=== PATIENT | male | born 1940 | race Caucasian/White ===

== ENCOUNTER 2018-10-13 13:24 | Inpatient (IN) | payer MEDICARE, OTHER ==
[2018-10-13] MEDS ORDERED: Metoclopramide 10 MG/2 ML SDV IVPUSH ONE ×2 (14:52→19:52)
[2018-10-13] MEDS ORDERED: Acetaminophen 325 MG Tab PO ONE (14:52)
--- NOTE | 2018-10-13 14:52 | EDM.PDOC ---
ED HPI GENERAL MEDICAL PROBLEM - General Chief Complaint: Syncope Stated Complaint: came by ambulance Time Seen by Provider: 10/13/18 14:43 Source of Information: Reports: Patient, EMS, Family (spouse) History Limitations: Reports: No Limitations - History of Present Illness INITIAL COMMENTS - FREE TEXT/NARRATIVE: 78-year-old male presents to the ED by [facility]. His provides a good deal of the history as well. He has not felt well since yesterday. Was lightheaded weak dizzy loss of appetite today. reports that today with sitting he suddenly became very weak and fell back in the chair. Nearly slid out of his chair. She thought that he was quite trembly all over and it's unclear whether this could've represented a seizure. He. seemed to be unresponsive for a short period of time. She felt his eyes rolled back in the back of his head as well. She states all of this lasted a good minute or more and then he came around. No change in his speech. Is alert and oriented now and it gives a good history. Denies headache. It's quite obvious he is febrile with temp to 102.6 recorded by the nurse. Some chills at home earlier this morning as well. He's noted urinary frequency but no dysuria urgency. No history of urinary tract infection. His blood sugar was elevated this morning as high as 300. He is chronically anticoagulated with Coumadin because of aortic valve replacement and atrial fibrillation. His heart rate was noted to be elevated today as well in the 120s with atrial fib. He denies cough or sputum production. Denies any significant abdominal pain. His reports that he was up multiple times almost every hour and a half to void during the night. Onset: Gradual Onset Date: 10/12/18 Duration: Minutes: Location: Reports: Generalized (Generalized shaking and tremors with transient loss of consciousness suggesting seizure. Was sitting at the time of this event. 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 Paramedics got blood sugar 250.) - Related Data Allergies Allergy/AdvReac Type Severity Reaction Status Date / Time clarithromycin [From axin] Allergy Rash Verified 09/29/15 15:35 Home Meds: Home Meds Glimepiride [Amaryl] 4 mg PO DAILY 07/28/15 [History] Ibuprofen 200 mg PO BID 07/28/15 [History] Lisinopril 5 mg PO DAILY 07/28/15 [History] Pravastatin [Pravachol] 20 mg PO BEDTIME 07/28/15 [History] metFORMIN [Glucophage] 1,000 mg PO BID 07/28/15 [History] Diltiazem HCl [Cartia Xt] 180 mg PO DAILY 10/13/18 [History] Warfarin Sodium [Jantoven] 4 mg PO MOWEFR 10/13/18 [History] Warfarin Sodium [Jantoven] 6 mg PO SUTUTHSA 10/13/18 [History] Past Medical History HEENT History: Reports: Cataract, Impaired Vision Other HEENT History: wears eyeglasses Cardiovascular History: Reports: Afib, Heart Murmur, Heart Valve Replacement, Other (See Below) Other Cardiovascular History: aortic valve replaced, heart murmur since . 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 Neurological History: Reports: CVA Endocrine/Metabolic History: Reports: Diabetes, Type II Dermatologic History: Reports: Cellulitis Other Dermatologic History: to legs. - Infectious Disease History Infectious Disease History: Reports: Chicken Pox, Measles, Mumps - Past Surgical History HEENT Surgical History: Reports: Cataract Surgery Musculoskeletal Surgical History: Reports: Hip Replacement Social & Family History - Tobacco Use Smoking Status *Q: Never Smoker Second Hand Smoke Exposure: No - Caffeine Use Caffeine Use: Reports: Coffee - Recreational Drug Use Recreational Drug Use: No - Living Situation & Occupation Living situation: Reports: Occupation: Retired [employer] GENERAL - Review of Systems Review Of Systems: See Below Constitutional: Reports: Fever, Chills, Malaise, Weakness, Fatigue, Decreased Appetite (Has not eaten at all today.) HEENT: Reports: Glasses, Hearing Loss (Mildly hard of hearing.) Respiratory: Reports: Shortness of Breath. Denies: Wheezing, Pleuritic Chest Pain, Cough, Sputum, Hemoptysis Cardiovascular: Reports: Dyspnea on Exertion, Edema (Chronic edema of his lower extremities up to his knees bilaterally right side worse than the left.), Lightheadedness, Palpitations. Denies: Chest Pain, Blood Pressure Problem, Claudication, Orthopnea Endocrine: Reports: Fatigue (Sometimes he is aware of his heart beating or skipping in his chest. He has chronic atrial fibrillation) GI/Abdominal: Reports: Anorexia, Nausea. Denies: Abdominal Pain, Decreased Appetite, Distension, Flatus, Hematemesis, Hematochezia, Melena, Stool Incontinence, Vomiting : Reports: Frequency. Denies: Dysuria Musculoskeletal: Reports: Other (Right hip pain. Had his right hip repaired in 2015 and it did not work well. His right leg remains very weak making it difficult for him to walk. He still has pain in his right hip.) Skin: Reports: Other (Marked swelling of both lower extremities up to the knees. He gets little ulcers on his legs that'll occasional loose clear fluid.) Neurological: Reports: Confusion, Dizziness, Difficulty Walking (Generalized weakness), Weakness. Denies: Numbness, Tingling, Tremors ( and difficulty walking), Trouble Speaking Psychiatric: Reports: No Symptoms Hematologic/Lymphatic: Reports: No Symptoms Immunologic: Reports: No Symptoms - Physical Exam Exam: See Below Exam Limited By: No Limitations General Appearance: Alert, WD/WN, Mild Distress, Other (F-wave febrile to touch. Heart rate is atrial fibrillation at 115 to 119/m.) Eye Exam: Bilateral Eye: Normal Inspection Ears: Normal TMs Throat/Mouth: Other Head Exam: Atraumatic (Tongue is mildly dry and coated.), Normocephalic Neck: Normal Inspection, Carotid Bruit (Referred bruit into the right carotid artery from aortic valve replacement.), Limited Range of Motion, Tender Lateral. No: Full Range of Motion (I'll tenderness bilateral neck from arthritis.), Lymphadenopathy (L), Lymphadenopathy (R) Respiratory/Chest: No Accessory Muscle Use, Respiratory Distress (Tachypnea At rest 32/m. O2 sats 91% on room air percent on 2 L), Rales (Few rales left lung base.) Cardiovascular: No Gallop, No JVD, No Rub, Systolic Murmur (Grade 1/6 systolic ejection murmur at the aortic resting pulse. He is post aortic valve replacement.), Irregularly Irregular (Monitor reveals a irregular irregular pulse 1:15 to 1 20/m compatible with atrial fibrillation.). No: Normal Peripheral Pulses, No Edema, JVD GI/Abdominal: Non-Tender, No Organomegaly, Distended. No: Guarding (Abdomen is distended and slightly tympanitic to percussion.), Rigid, Rebound, Tender (Male) Exam: No Hernia Neuro Exam (Abbreviated): Alert, Oriented, CN II-XII Intact, Normal Cognition. No: Normal Gait, Normal Reflexes, No Motor/Sensory Deficits, Inattentive, Confused, Disoriented, Slow to Respond, Unresponsive DTR: 0: Achilles (R), Achilles (L), 1+: Bicep (R), Bicep (L), Patella (R), Patella (L) Extremities: Pedal Edema (He has 4+ pitting edema bilaterally slightly worse on the right side which travels above his right knee.), Other Psychiatric: Normal Affect (He has several bandages on both lower extremities at sites of small ulcers to prevent peaking.), Normal Mood Skin Exam: Warm, Dry, Intact, Normal Color, No Rash EKG INTERPRETATION EKG Date: 10/13/18 Time: 16:10 Rhythm: A-Fib (Occasional PVCs) Rate (Beats/Min): 115 [place]: Normal P-Wave: Absent ST-T: Other (T-wave inversion in one aVL and leads V4 to V6 with mild associated ST segment depression. Cannot rule out lateral apical ischemia.) QT: Normal Course - Vital Signs Last Recorded V/S: Last Vital Signs Temp 38.7 C H 10/13/18 15:11 Pulse 110 H 10/13/18 13:24 Resp 32 H 10/13/18 13:24 BP 137/82 10/13/18 13:24 Pulse Ox 91 L 10/13/18 13:24 - Orders/Labs/Meds Orders: Active Orders 24 hr Category Date Time Status Patient Status [ADT] Routine ADT 10/13/18 19:45 Active EKG Documentation Completion [RC] STAT Care 10/13/18 14:53 Active Insert Mueller Catheter [Insert Urinary Catheter] [OM.PC] Care 10/13/18 13:50 Ordered Stat Oxygen Therapy [RC] ASDIRECTED Care 10/13/18 16:35 Active Urinary Catheter Assessment [RC] ASDIRECTED Care 10/13/18 13:50 Active Chest 1V Frontal [CR] Stat Exams 10/13/18 14:53 Taken CULTURE BLOOD [BC] Stat Lab 10/13/18 15:29 Received CULTURE BLOOD [BC] Stat Lab 10/13/18 15:41 Received Metoclopramide [Reglan] Med 10/13/18 19:52 Once 7.5 mg IVPUSH ONETIME ONE Sodium Chloride 0.9% [Normal Saline] 1,000 ml Med 10/13/18 15:00 Active IV ASDIRECTED Sodium Chloride 0.9% [Normal Saline] 1,000 ml Med 10/13/18 19:00 Active IV ASDIRECTED cefTRIAXone [Rocephin] 2 gm Med 10/13/18 16:30 Active Sodium Chloride 0.9% [Normal Saline] 100 ml IV Q24H Blood Culture x2 Reflex Set [OM.PC] Stat Oth 10/13/18 14:54 Ordered Medication Orders Sodium Chloride (Normal Saline) 1,000 mls @ 125 mls/hr IV ASDIRECTED FABIENNE Last Admin: 10/13/18 15:10 Dose: 125 mls/hr Ceftriaxone Sodium 2 gm/ (Sodium Chloride) 100 mls @ 200 mls/hr IV Q24H FABIENNE Last Admin: 10/13/18 16:48 Dose: 200 mls/hr Sodium Chloride (Normal Saline) 1,000 mls @ 100 mls/hr IV ASDIRECTED FABIENNE Labs: Laboratory Tests 10/13/18 10/13/18 10/13/18 Range/Units 13:55 15:29 15:29 WBC 8.26 (4.23-9.07) K/mm3 RBC 4.42 L (4.63-6.08) M/mm3 Hgb 13.2 L (13.7-17.5) gm/L Hct 39.6 L (40.1-51.0) % MCV 89.6 (79.0-92.2) fl MCH 29.9 (25.7-32.2) pg MCHC 33.3 (32.2-35.5) g/dl RDW Std Deviation 42.7 (35.1-43.9) fL Plt Count 144 L (163-337) K/mm3 MPV 9.5 (9.4-12.3) fl Neutrophils % (Manual) 86 H (40-60) % Band Neutrophils % 2 (0-10) % Lymphocytes % (Manual) 11 L (20-40) % Atypical Lymphs % 0 % Monocytes % (Manual) 1 L (2-10) % Eosinophils % (Manual) 0 L (0.8-7.0) % Basophils % (Manual) 0 L (0.2-1.2) Platelet Estimate Adequate RBC Morph Comment Normal ESR 44 H (0-15) mm/hr PT (9.5-12.1) SECONDS INR Sodium (136-145) mEq/L Potassium (3.5-5.1) mEq/L Chloride (98-107) mEq/L Carbon Dioxide (21-32) mEq/L Anion Gap (5-15) BUN (7-18) mg/dL Creatinine (0.7-1.3) mg/dL Est Cr Clr Drug Dosing mL/min Estimated GFR (MDRD) (>60) mL/min BUN/Creatinine Ratio (14-18) Glucose (83-115) mg/dL Lactic Acid (0.4-2.0) mmol/L Calcium (8.5-10.1) mg/dL Magnesium (1.8-2.4) mg/dl Total Bilirubin (0.2-1.0) mg/dL AST (15-37) U/L ALT (16-63) U/L Alkaline Phosphatase (46-116) U/L CK-MB (CK-2) (0-3.6) ng/ml Troponin I (0.00-0.056) ng/mL C-Reactive Protein (<1.0) mg/dL NT-Pro-B Natriuret Pep (0-450) pg/mL Total Protein (6.4-8.2) g/dl Albumin (3.4-5.0) g/dl Globulin gm/dL Albumin/Globulin Ratio (1-2) Urine Color Yellow (Yellow) Urine Appearance Clear (Clear) Urine pH 6.0 (5.0-8.0) Ur Specific Bigler > or = 1.030 (1.005-1.030) Urine Protein 2+ H (Negative) Urine Glucose (UA) Trace H (Negative) Urine Ketones 2+ H (Negative) Urine Occult Blood 1+ H (Negative) Urine Nitrite Negative (Negative) Urine Bilirubin Negative (Negative) Urine Urobilinogen 0.2 (0.2-1.0) Ur Leukocyte Esterase Negative (Negative) Urine RBC 0-5 (0-5) /hpf Urine WBC 0-5 (0-5) /hpf Ur Epithelial Cells 0-5 (0-5) /hpf Amorphous Sediment Few H (NOT SEEN) /hpf Urine Bacteria Few (FEW) /hpf Urine Mucus Few (FEW) /hpf Mycoplasma pneumon IgM (NEGATIVE) 10/13/18 10/13/18 10/13/18 Range/Units 15:29 15:29 15:29 WBC (4.23-9.07) K/mm3 RBC (4.63-6.08) M/mm3 Hgb (13.7-17.5) gm/L Hct (40.1-51.0) % MCV (79.0-92.2) fl MCH (25.7-32.2) pg MCHC (32.2-35.5) g/dl RDW Std Deviation (35.1-43.9) fL Plt Count (163-337) K/mm3 MPV (9.4-12.3) fl Neutrophils % (Manual) (40-60) % Band Neutrophils % (0-10) % Lymphocytes % (Manual) (20-40) % Atypical Lymphs % % Monocytes % (Manual) (2-10) % Eosinophils % (Manual) (0.8-7.0) % Basophils % (Manual) (0.2-1.2) Platelet Estimate RBC Morph Comment ESR (0-15) mm/hr PT 16.6 H (9.5-12.1) SECONDS INR 1.54 Sodium 136 (136-145) mEq/L Potassium 3.8 (3.5-5.1) mEq/L Chloride 101 (98-107) mEq/L Carbon Dioxide 22 (21-32) mEq/L Anion Gap 16.8 H (5-15) BUN 19 H (7-18) mg/dL Creatinine 1.3 (0.7-1.3) mg/dL Est Cr Clr Drug Dosing 49.91 mL/min Estimated GFR (MDRD) 54 (>60) mL/min BUN/Creatinine Ratio 14.6 (14-18) Glucose 204 H (83-115) mg/dL Lactic Acid (0.4-2.0) mmol/L Calcium 8.6 (8.5-10.1) mg/dL Magnesium 1.5 L (1.8-2.4) mg/dl Total Bilirubin 0.9 (0.2-1.0) mg/dL AST 29 (15-37) U/L ALT 40 (16-63) U/L Alkaline Phosphatase 86 (46-116) U/L CK-MB (CK-2) 0.6 (0-3.6) ng/ml Troponin I < 0.017 (0.00-0.056) ng/mL C-Reactive Protein 15.2 H* (<1.0) mg/dL NT-Pro-B Natriuret Pep 1234 H (0-450) pg/mL Total Protein 7.5 (6.4-8.2) g/dl Albumin 3.8 (3.4-5.0) g/dl Globulin 3.7 gm/dL Albumin/Globulin Ratio 1.0 (1-2) Urine Color (Yellow) Urine Appearance (Clear) Urine pH (5.0-8.0) Ur Specific [place] (1.005-1.030) Urine Protein (Negative) Urine Glucose (UA) (Negative) Urine Ketones (Negative) Urine Occult Blood (Negative) Urine Nitrite (Negative) Urine Bilirubin (Negative) Urine Urobilinogen (0.2-1.0) Ur Leukocyte Esterase (Negative) Urine RBC (0-5) /hpf Urine WBC (0-5) /hpf Ur Epithelial Cells (0-5) /hpf Amorphous Sediment (NOT SEEN) /hpf Urine Bacteria (FEW) /hpf Urine Mucus (FEW) /hpf Mycoplasma pneumon IgM (NEGATIVE) 10/13/18 10/13/18 Range/Units 15:29 15:29 WBC (4.23-9.07) K/mm3 RBC (4.63-6.08) M/mm3 Hgb (13.7-17.5) gm/L Hct (40.1-51.0) % MCV (79.0-92.2) fl MCH (25.7-32.2) pg MCHC (32.2-35.5) g/dl RDW Std Deviation (35.1-43.9) fL Plt Count (163-337) K/mm3 MPV (9.4-12.3) fl Neutrophils % (Manual) (40-60) % Band Neutrophils % (0-10) % Lymphocytes % (Manual) (20-40) % Atypical Lymphs % % Monocytes % (Manual) (2-10) % Eosinophils % (Manual) (0.8-7.0) % Basophils % (Manual) (0.2-1.2) Platelet Estimate RBC Morph Comment ESR (0-15) mm/hr PT (9.5-12.1) SECONDS INR Sodium (136-145) mEq/L Potassium (3.5-5.1) mEq/L Chloride (98-107) mEq/L Carbon Dioxide (21-32) mEq/L Anion Gap (5-15) BUN (7-18) mg/dL Creatinine (0.7-1.3) mg/dL Est Cr Clr Drug Dosing mL/min Estimated GFR (MDRD) (>60) mL/min BUN/Creatinine Ratio (14-18) Glucose (83-115) mg/dL Lactic Acid 1.8 (0.4-2.0) mmol/L Calcium (8.5-10.1) mg/dL Magnesium (1.8-2.4) mg/dl Total Bilirubin (0.2-1.0) mg/dL AST (15-37) U/L ALT (16-63) U/L Alkaline Phosphatase (46-116) U/L CK-MB (CK-2) (0-3.6) ng/ml Troponin I (0.00-0.056) ng/mL C-Reactive Protein (<1.0) mg/dL NT-Pro-B Natriuret Pep (0-450) pg/mL Total Protein (6.4-8.2) g/dl Albumin (3.4-5.0) g/dl Globulin gm/dL Albumin/Globulin Ratio (1-2) Urine Color (Yellow) Urine Appearance (Clear) Urine pH (5.0-8.0) Ur Specific [place] (1.005-1.030) Urine Protein (Negative) Urine Glucose (UA) (Negative) Urine Ketones (Negative) Urine Occult Blood (Negative) Urine Nitrite (Negative) Urine Bilirubin (Negative) Urine Urobilinogen (0.2-1.0) Ur Leukocyte Esterase (Negative) Urine RBC (0-5) /hpf Urine WBC (0-5) /hpf Ur Epithelial Cells (0-5) /hpf Amorphous Sediment (NOT SEEN) /hpf Urine Bacteria (FEW) /hpf Urine Mucus (FEW) /hpf Mycoplasma pneumon IgM Negative (NEGATIVE) Meds: Medications Generic Name Dose Route Start Last Admin Trade Name Freq PRN Reason Stop Dose Admin Sodium Chloride 1,000 mls @ 125 mls/hr 10/13/18 15:00 10/13/18 15:10 Normal Saline IV 125 mls/hr ASDIRECTED FABIENNE Administration Ceftriaxone Sodium 2 gm/ 100 mls @ 200 mls/hr 10/13/18 16:30 10/13/18 16:48 Sodium Chloride IV 200 mls/hr Q24H FABIENNE Administration Sodium Chloride 1,000 mls @ 100 mls/hr 10/13/18 19:00 Normal Saline IV ASDIRECTED FABIENNE Discontinued Medications Generic Name Dose Route Start Last Admin Trade Name Freq PRN Reason Stop Dose Admin Acetaminophen 650 mg 10/13/18 14:52 10/13/18 15:11 Tylenol PO 10/13/18 14:53 650 mg NOW ONE Administration Diltiazem HCl 10 mg 10/13/18 16:23 10/13/18 16:31 Cardizem IVPUSH 10/13/18 16:24 10 mg ONETIME ONE Administration Furosemide 40 mg 10/13/18 18:46 10/13/18 19:06 Lasix IVPUSH 10/13/18 18:47 40 mg NOW ONE Administration Iopamidol 100 ml 10/13/18 17:23 10/13/18 17:45 Isovue-300 (61%) IVPUSH 10/13/18 17:24 100 ml ONETIME ONE Administration Metoclopramide HCl 10 mg 10/13/18 14:52 10/13/18 15:08 Reglan IVPUSH 10/13/18 14:53 10 mg ONETIME ONE Administration - Radiology Interpretation Free Text/Narrative:: 78-year-old male presents to the ED after a syncopal versus seizure activity at home this afternoon. He has been feeling well for 2 days he does have a definite fever fever. Reports that he was sitting in his easy chair when he suddenly seemed to lose consciousness with his eyes rolled back in his head with generalized tremulousness and the shakes. He nearly slid out of his easy chair to the floor. His blood sugars have been running quite high the last day or 2 up to 300. Has complete loss of appetite. No cough or sputum production. Only other thing that she has noted as he was up almost every hour voiding last night. He denies any dysuria problems with urinary tract infection the past. Patient is chronically anticoagulated with Coumadin because of aortic heart valve replacement and atrial fibrillation. He is in atrial fibrillation with a rapid ventricular rate of 1:15 to 1 20/m. Clinically he is in mild congestive failure. The nurses have done an in and out catheterization to collect a urine sample. Plan septic workup including lactic acid to be done. IV will be normal saline at 200 mils per hour until we can establish his fluid status. Tylenol 650 mg by mouth for fever relief. Blood cultures 2 have been ordered as well as a lactic acid. - Re-Assessments/Exams Free Text/Narrative Re-Assessment/Exam: 10/13/18 15:55 chest x-ray reveals mildly hyperinflated lung velasquez. Moderate cardiomegaly with diffuse vascular congestion pattern. There is no pleural effusion or pneumothorax or evidence of pneumonia. Urinalysis collected by in and out catheterization shows 2+ ketones and 1+ RBCs but no signs of infection. 10/13/18 16:18 I went back and reexamined this patient's abdomen and skin in total and I could still not identify any potential source for infection. reports that he did have a large volume diarrhea stool yesterday. We'll await his labs to decide if he needs a CT abdomen. ET had completed reveals no intracranial hemorrhage or mass effect. There is prominence of the lateral ventricles. There is an old appearing infarct within the left frontal region. There is mild minute diminished density noted within portions of the periventricular and subcortical white matter compatible with small vessel ischemic change. Several lacunar infarcts are noted within the basal ganglia. Several old lacunar infarcts are also noted within the sarah. No other parenchymal densities are appreciated. 10/13/18 16:33 His heart rate on ECG is anywhere from 100-200/m. It's averaging about 120/m. She neglected to as high as 140 on the monitor. I'm going to give him 10 mg of Cardizem IV. BP is 116/70. Sats are 92 percent and I will therefore place him on 2 L of oxygen. I'm going to go ahead and give him Rocephin 2 g intravenously as his CRP is 15.2. The white count and differential are pending I will proceed with CT of the abdomen with IV contrast only. Kidney function is good enough to tolerate this. His CRP is elevated at 15.2. 10/13/18 17:47 influenza screen is negative. White count is normal at 8.260 with a differential shows 86% neutrophils and 2% band cells. Hemoglobin is 13.2 with hematocrit of 39.6. MCV is 89.6. Platelet count 144,000. Sedimentation rate is 44. PT is 16.6 with an INR of 1.54 i.e. subtherapeutic. Sodium was 136 with a potassium of 3.8 chloride 11 with a bicarbonate of 22. Anion gap mildly elevated at 16.8. BUN is 19 with a creatinine of 1.3. GFR is 54. Glucose is 204. Lactic acid is 1.8. Calcium 8.6 with a magnesium slightly low at 1.5. Total bilirubin 0.9. AST is 29 with an ALT of 40. Alk phosphatase is 86. CK-MB fraction is 0.6. Troponin I is less than 0.017. C-reactive protein is elevated at 15.2. BNP is elevated at 1234. Total protein 7.5. Albumin fraction of 3.8. Urinalysis shows 2+ proteinuria and 2+ ketonuria and 1+ occult blood on the dip.. Micro-shows no red cells no white cells and no epithelial cells with very few bacteria evident. Of note this was a catheterized specimen. 10/13/18 18:13 CT scan of the abdomen was performed with IV contrast. Small portion of the visualized lung bases show nothing acute liver contains no focal abnormality small hiatal hernia is appreciated. Spleen appears to be normal in size adrenal glands show no nodules kidneys show symmetric contrast enhancement without hydronephrosis. 2 small low density finding is seen within the left kidney most consistent with cysts. Pancreas is within normal limits. Gallbladder contains no calcified gallstones. Aorta shows atherosclerotic calcification which continues into the iliac vessels. No retroperitoneal adenopathy or mesenteric abdomen maladies are seen. No pelvic mass or adenopathy is seen portions of the pelvis are obscured from bilateral hip prostheses causing severe artifact. No free fluid or inflammatory changes evident. Diffuse degenerative changes noted within the spine no intra-abdominal abscess is identified. Therefore source of current fever is unclear. Will discuss case with phonograph needle tip maker hospitalist Dr. Avalos with a view to hospitalization. 10/13/18 19:30: Nurses were unable to get him some soup and therefore he had a bit of a sandwich. He only took about a half of one sandwich before he started to feel nauseated and actually had vomiting again. Reglan 7.5 mg was repeated IV. Been discussed with on-call hospice Dr. Avalos and she agrees with admission to [facility] surgery per telemetry. It appears the source of infection is his cellulitis that is developing in his right medial calf. Areas become more reddened even during the duration in the hospital. He has been started on appropriate antibiotics Zosyn 4.5 g which will cover MRSA. 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 insulin use: without mcc use Diabetes mellitus complication status: with circulatory complication Nausea and vomiting Qualifiers: Vomiting type: bilious vomiting Qualified Code(s): R11.14 - Bilious vomiting - Discharge Information *PRESCRIPTION DRUG MONITORING PROGRAM REVIEWED*: Not Applicable *COPY OF PRESCRIPTION DRUG MONITORING REPORT IN PATIENT EDWIN: Not Applicable Referrals: Ravi Weaver MD [Primary Care Provider] - Forms: ED Department Discharge - My Orders Last 24 Hours: My Active Orders 10/13/18 13:50 Insert Mueller Catheter [Insert Urinary Catheter] [OM.PC] Stat Urinary Catheter Assessment [RC] ASDIRECTED 10/13/18 14:53 EKG Documentation Completion [RC] STAT Chest 1V Frontal [CR] Stat 10/13/18 14:54 Blood Culture x2 Reflex Set [OM.PC] Stat 10/13/18 15:00 Sodium Chloride 0.9% [Normal Saline] 1,000 ml IV ASDIRECTED 10/13/18 15:29 CULTURE BLOOD [BC] Stat 10/13/18 15:41 CULTURE BLOOD [BC] Stat 10/13/18 16:30 cefTRIAXone [Rocephin] 2 gm Sodium Chloride 0.9% [Normal Saline] 100 ml IV Q24H 10/13/18 16:35 Oxygen Therapy [RC] ASDIRECTED 10/13/18 19:00 Sodium Chloride 0.9% [Normal Saline] 1,000 ml IV ASDIRECTED 10/13/18 19:45 Patient Status [ADT] Routine 10/13/18 19:52 Metoclopramide [Reglan] 7.5 mg IVPUSH ONETIME ONE - Assessment/Plan Last 24 Hours: My Active Orders 10/13/18 13:50 Insert Mueller Catheter [Insert Urinary Catheter] [OM.PC] Stat Urinary Catheter Assessment [RC] ASDIRECTED 10/13/18 14:53 EKG Documentation Completion [RC] STAT Chest 1V Frontal [CR] Stat 10/13/18 14:54 Blood Culture x2 Reflex Set [OM.PC] Stat 10/13/18 15:00 Sodium Chloride 0.9% [Normal Saline] 1,000 ml IV ASDIRECTED 10/13/18 15:29 CULTURE BLOOD [BC] Stat 10/13/18 15:41 CULTURE BLOOD [BC] Stat 10/13/18 16:30 cefTRIAXone [Rocephin] 2 gm Sodium Chloride 0.9% [Normal Saline] 100 ml IV Q24H 10/13/18 16:35 Oxygen Therapy [RC] ASDIRECTED 10/13/18 19:00 Sodium Chloride 0.9% [Normal Saline] 1,000 ml IV ASDIRECTED 10/13/18 19:45 Patient Status [ADT] Routine 10/13/18 19:52 Metoclopramide [Reglan] 7.5 mg IVPUSH ONETIME ONE
[2018-10-13] MEDS ORDERED: Sodium Chloride 0.9% 1,000 ML IV SCH ×2 (15:00→19:00)
--- NOTE | 2018-10-13 16:06 | CT ---
Head CT Technique: Multiple axial sections through the brain were obtained. Intravenous contrast was not utilized. Comparison: No prior intracranial imaging is available. Findings: Ventricles along with basal cisterns and sulci over the convexities are moderately prominent. 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 Mild diminished density is noted within portions of the periventricular and subcortical white matter compatible with small vessel ischemic demyelination change. Several old lacunar infarcts are noted within the basal ganglia. Several old lacunar infarcts are also noted within the sarah. No other abnormal parenchymal densities are seen. No evidence of intracranial hemorrhage. No midline shift or mass effect is seen. Bone window settings were reviewed which shows the visualized sinuses to appear clear. No acute calvarial abnormality is seen. Impression: 1. Senescent change as described above. No acute intracranial abnormality is identified on noncontrast head CT exam. Diagnostic code #2
[2018-10-13] MEDS ORDERED: Diltiazem 50 MG/10 ML SDV IVPUSH ONE (16:23)
[2018-10-13] MEDS: cefTRIAXone 2 GM in Sodium Chloride 0.9% 100 ML IV SCH (16:48)
[2018-10-13] MEDS ORDERED: Iopamidol 612 MG/ML 100 ML Bottle IVPUSH ONE (17:23)
--- NOTE | 2018-10-13 18:08 | CT ---
CT abdomen and pelvis Technique: Multiple axial sections were obtained from above the dome of the diaphragm inferiorly through the pubic symphysis. Intravenous contrast was utilized. No oral contrast was given. Comparison: No prior CT abdomen or pelvis exam is available. Findings: Small portion of the visualized lung bases shows nothing acute. Liver contains no focal abnormality. Small hiatal hernia is seen. Spleen appears normal in size. Adrenal glands show no nodule. Kidneys show symmetric contrast enhancement without hydronephrosis. 2 small low density findings are seen within the left kidney most likely representing small cysts. Pancreas is within normal limits. Gallbladder contains no calcified gallstones. Aorta shows atherosclerotic calcification which continues into the iliac vessels. No retroperitoneal adenopathy or mesenteric abnormalities are seen. No pelvic mass or adenopathy is seen. 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 No free fluid or inflammatory change is seen. Diffuse degenerative change is noted within the spine. No intra-abdominal abscess is identified. Delayed images shows contrast within the distal ureters and bladder. Impression: 1. Incidental findings as noted above. Nothing acute is appreciated on CT study of the abdomen and pelvis. Diagnostic code #2
[2018-10-13] MEDS ORDERED: Furosemide 40 MG/4 ML VIAL IVPUSH ONE (18:46)
[2018-10-13] MEDS ORDERED: Albuterol 0.083% 2.5 MG/3 ML Neb Soln NEB PRN (20:03)
[2018-10-13] MEDS ORDERED: Ondansetron 4 MG/2 ML SDV IV PRN (20:03)
[2018-10-13] MEDS ORDERED: HYDROmorphone 1 MG/ML Syringe IVPUSH PRN (20:03)
[2018-10-13] MEDS ORDERED: Docusate Sodium 100 MG Cap PO PRN (20:03)
[2018-10-13] MEDS ORDERED: Temazepam 7.5 MG Cap PO PRN (20:03)
[2018-10-13] MEDS ORDERED: Albuterol/Ipratropium 3.0-0.5 MG/3 ML Neb Soln NEB PRN (20:03)
[2018-10-13] MEDS ORDERED: Ketorolac 30 MG/ML SDV IV PRN (20:03)
[2018-10-13] MEDS ORDERED: Polyethylene Glycol 3350 Powder 17 GM Packet PO PRN (20:03)
[2018-10-13] MEDS ORDERED: Bisacodyl 5 MG Tab PO PRN (20:03)
[2018-10-13] MEDS ORDERED: Ondansetron 4 MG Tab.DIS PO PRN (20:03)
[2018-10-13] MEDS ORDERED: 50% Dextrose in Water 50 ML Syringe IVPUSH PRN (20:20)
[2018-10-13] MEDS ORDERED: Metoprolol Tartrate 5 MG/5 ML SDV IVPUSH PRN (20:23)
--- NOTE | 2018-10-13 20:46 | PCM.HP ---
H&P History of Present Illness - General Date of Service: 10/13/18 Admit Problem/Dx: Admission Diagnosis/Problem Admission Diagnosis/Problem Cellulitis Source of Information: Patient, Family, Provider History Limitations: Reports: No Limitations - History of Present Illness Initial Comments - Free Text/Narative: This is a 78 yo male with past medical h/o Afib, Heart murmur, Aortic Valve replacement, CVA, DM2 on metformin, R hip replacement (2014) who comes in for bilateral LE Cellulitis. He c/o of F/C, weakness, lightheadedness, dizziness, SOB, loss of appetite, urinary frequency, leg pain. Denies chest pain, cough, abdominal pain, N/V/D or other GI/ complaints. His initial workup in the ED shows a CBC remarkable for RBC 4.42, Hgb 13.2, Hct 39.6, Plt 144, Neut 86% w/ 2% bandemia, Lymph 11%, Baca 1%, ESR 44. Coagulation studies show PT 16.6, INR 1.54. Her chemistry is remarkable for AGap 16.8, BUN 19, Glu 204, Mag 1.5, CRP 15.2, BNP 1234. Temperature 102.6. O2 85% RA. EKG shows Afib, 115 bpm, T wave inversion in one aVL and V4-V6 w/ mild ST depression. Mycoplasma negative. Influenza negative. UA unimpressive for UTI. CXR shows nothing acute. Head CT shows nothing acute. Ab/Pelvis CT shows nothing acute. He is subsequently admitted to the medical floor. He is a Full Code. PCP is Dr. Weaver. - Related Data Allergies/Adverse Reactions: Allergies Allergy/AdvReac Type Severity Reaction Status Date / Time clarithromycin [From Biaxin] Allergy Rash Verified 10/13/18 20:57 Home Medications: Home Meds Glimepiride [Amaryl] 4 mg PO BEDTIME 07/28/15 [History] Ibuprofen 200 mg PO BID 07/28/15 [History] Lisinopril 5 mg PO DAILY 07/28/15 [History] Pravastatin [Pravachol] 20 mg PO BEDTIME 07/28/15 [History] metFORMIN [Glucophage] 1,000 mg PO BID 07/28/15 [History] Diltiazem HCl [Cartia Xt] 180 mg PO DAILY 10/13/18 [History] Warfarin Sodium [Jantoven] 4 mg PO MOWEFR 10/13/18 [History] Warfarin Sodium [Jantoven] 6 mg PO SUTUTHSA 10/13/18 [History] Past Medical History HEENT History: Reports: Cataract, Impaired Vision Other HEENT History: wears eyeglasses Cardiovascular History: Reports: Afib, Heart Murmur, Heart Valve Replacement, Other (See Below) Other Cardiovascular History: aortic valve replaced, heart murmur since . 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 Neurological History: Reports: CVA Endocrine/Metabolic History: Reports: Diabetes, Type II Dermatologic History: Reports: Cellulitis Other Dermatologic History: to legs. - Infectious Disease History Infectious Disease History: Reports: Chicken Pox, Measles, Mumps - Past Surgical History HEENT Surgical History: Reports: Cataract Surgery Musculoskeletal Surgical History: Reports: Hip Replacement Social & Family History - Tobacco Use Smoking Status *Q: Never Smoker Second Hand Smoke Exposure: No - Caffeine Use Caffeine Use: Reports: Coffee - Recreational Drug Use Recreational Drug Use: No - Living Situation & Occupation Living situation: Reports: Occupation: Retired H&P Review of Systems - Review of Systems: Review Of Systems: See Below General: Reports: Fever, Chills, Weakness, Decreased Appetite HEENT: Reports: No Symptoms Pulmonary: Reports: Shortness of Breath. Denies: Cough Cardiovascular: Reports: Edema, Lightheadedness, Blood Pressure Problem. Denies : Chest Pain, Palpitations Gastrointestinal: Reports: Decreased Appetite. Denies: Abdominal Pain, Diarrhea , Nausea, Vomiting Genitourinary: Reports: Frequency. Denies: Dysuria, Burning, Pain, Urgency Musculoskeletal: Reports: Leg Pain, Joint Pain (chronic s/p R hip repair 2014) Skin: Reports: Erythema (bilateral LE up to the knees), Wound (2 small wounds bilateral LE) Psychiatric: Reports: Confusion Neurological: Reports: Confusion, Dizziness, Difficulty Walking, Weakness, Gait Disturbance Hematologic/Lymphatic: Reports: No Symptoms Immunologic: Reports: No Symptoms Exam - Exam Exam: See Below - Vital Signs Vital Signs: Last Vital Signs Temp 101.7 F H 10/13/18 15:11 Pulse 110 H 10/13/18 13:24 Resp 32 H 10/13/18 13:24 BP 137/82 10/13/18 13:24 Pulse Ox 91 L 10/13/18 13:24 Weight: 225 lb - Exam Quality Assessment: Supplemental Oxygen (2L NC), Urinary Catheter, DVT Prophylaxis General: Alert, Oriented, Cooperative HEENT: Conjunctiva Clear, EACs Clear, EOMI, Hearing Intact, Mucosa Moist & [place] , Nares Patent, Normal Nasal Septum, Posterior Pharynx Clear, PERRLA Neck: Supple, Trachea Midline, 2 Lungs: Normal Respiratory Effort, Rales Cardiovascular: Irregular Rhythm, Tachycardia, Systolic Murmur. No: Regular Rate (Irregular) GI/Abdominal Exam: Normal Bowel Sounds, Soft, Non-Tender, No Organomegaly, No Distention, No Abnormal Bruit, No Mass, Pelvis Stable (Male) Exam: Deferred Rectal (Males) Exam: Deferred Back Exam: Normal Inspection Extremities: Normal Inspection, Normal Range of Motion, Non-Tender, Normal Capillary Refill, Pedal Edema (1+ pitting edema bilaterally), Leg Pain ( bilateral LE), Limited Range of Motion (R leg; Chronic s/p CVA and hip replacement in 2014), Increased Warmth (bilateral LE), Redness (bilateral LE, up to the knees) Peripheral Pulses: 1+: Posterior Tibial (L), Posterior Tibial (R), Dorsalis Pedis (L), Dorsalis Pedis (R) Skin: Warm, Dry, Wound (2 wounds bilateral LEs) Neurological: Cranial Nerves Intact (grossly) Psychiatric: Alert, Normal Affect, Normal Mood - Patient Data Lab Results Last 24 hrs: Laboratory Results - last 24 hr 10/13/18 10/13/18 10/13/18 Range/Units 13:55 15:29 15:29 WBC 8.26 (4.23-9.07) K/mm3 RBC 4.42 L (4.63-6.08) M/mm3 Hgb 13.2 L (13.7-17.5) gm/L Hct 39.6 L (40.1-51.0) % MCV 89.6 (79.0-92.2) fl MCH 29.9 (25.7-32.2) pg MCHC 33.3 (32.2-35.5) g/dl RDW Std Deviation 42.7 (35.1-43.9) fL Plt Count 144 L (163-337) K/mm3 MPV 9.5 (9.4-12.3) fl Neutrophils % (Manual) 86 H (40-60) % Band Neutrophils % 2 (0-10) % Lymphocytes % (Manual) 11 L (20-40) % Atypical Lymphs % 0 % Monocytes % (Manual) 1 L (2-10) % Eosinophils % (Manual) 0 L (0.8-7.0) % Basophils % (Manual) 0 L (0.2-1.2) Platelet Estimate Adequate RBC Morph Comment Normal ESR 44 H (0-15) mm/hr PT (9.5-12.1) SECONDS INR Sodium (136-145) mEq/L Potassium (3.5-5.1) mEq/L Chloride (98-107) mEq/L Carbon Dioxide (21-32) mEq/L Anion Gap (5-15) BUN (7-18) mg/dL Creatinine (0.7-1.3) mg/dL Est Cr Clr Drug Dosing mL/min Estimated GFR (MDRD) (>60) mL/min BUN/Creatinine Ratio (14-18) Glucose (83-115) mg/dL Lactic Acid (0.4-2.0) mmol/L Calcium (8.5-10.1) mg/dL Magnesium (1.8-2.4) mg/dl Total Bilirubin (0.2-1.0) mg/dL AST (15-37) U/L ALT (16-63) U/L Alkaline Phosphatase (46-116) U/L CK-MB (CK-2) (0-3.6) ng/ml Troponin I (0.00-0.056) ng/mL C-Reactive Protein (<1.0) mg/dL NT-Pro-B Natriuret Pep (0-450) pg/mL Total Protein (6.4-8.2) g/dl Albumin (3.4-5.0) g/dl Globulin gm/dL Albumin/Globulin Ratio (1-2) Urine Color Yellow (Yellow) Urine Appearance Clear (Clear) Urine pH 6.0 (5.0-8.0) Ur Specific [place] > or = 1.030 (1.005-1.030) Urine Protein 2+ H (Negative) Urine Glucose (UA) Trace H (Negative) Urine Ketones 2+ H (Negative) Urine Occult Blood 1+ H (Negative) Urine Nitrite Negative (Negative) Urine Bilirubin Negative (Negative) Urine Urobilinogen 0.2 (0.2-1.0) Ur Leukocyte Esterase Negative (Negative) Urine RBC 0-5 (0-5) /hpf Urine WBC 0-5 (0-5) /hpf Ur Epithelial Cells 0-5 (0-5) /hpf Amorphous Sediment Few H (NOT SEEN) /hpf Urine Bacteria Few (FEW) /hpf Urine Mucus Few (FEW) /hpf Mycoplasma pneumon IgM (NEGATIVE) 10/13/18 10/13/18 10/13/18 Range/Units 15:29 15:29 15:29 WBC (4.23-9.07) K/mm3 RBC (4.63-6.08) M/mm3 Hgb (13.7-17.5) gm/L Hct (40.1-51.0) % MCV (79.0-92.2) fl MCH (25.7-32.2) pg MCHC (32.2-35.5) g/dl RDW Std Deviation (35.1-43.9) fL Plt Count (163-337) K/mm3 MPV (9.4-12.3) fl Neutrophils % (Manual) (40-60) % Band Neutrophils % (0-10) % Lymphocytes % (Manual) (20-40) % Atypical Lymphs % % Monocytes % (Manual) (2-10) % Eosinophils % (Manual) (0.8-7.0) % Basophils % (Manual) (0.2-1.2) Platelet Estimate RBC Morph Comment ESR (0-15) mm/hr PT 16.6 H (9.5-12.1) SECONDS INR 1.54 Sodium 136 (136-145) mEq/L Potassium 3.8 (3.5-5.1) mEq/L Chloride 101 (98-107) mEq/L Carbon Dioxide 22 (21-32) mEq/L Anion Gap 16.8 H (5-15) BUN 19 H (7-18) mg/dL Creatinine 1.3 (0.7-1.3) mg/dL Est Cr Clr Drug Dosing 49.91 mL/min Estimated GFR (MDRD) 54 (>60) mL/min BUN/Creatinine Ratio 14.6 (14-18) Glucose 204 H (83-115) mg/dL Lactic Acid (0.4-2.0) mmol/L Calcium 8.6 (8.5-10.1) mg/dL Magnesium 1.5 L (1.8-2.4) mg/dl Total Bilirubin 0.9 (0.2-1.0) mg/dL AST 29 (15-37) U/L ALT 40 (16-63) U/L Alkaline Phosphatase 86 (46-116) U/L CK-MB (CK-2) 0.6 (0-3.6) ng/ml Troponin I < 0.017 (0.00-0.056) ng/mL C-Reactive Protein 15.2 H* (<1.0) mg/dL NT-Pro-B Natriuret Pep 1234 H (0-450) pg/mL Total Protein 7.5 (6.4-8.2) g/dl Albumin 3.8 (3.4-5.0) g/dl Globulin 3.7 gm/dL Albumin/Globulin Ratio 1.0 (1-2) Urine Color (Yellow) Urine Appearance (Clear) Urine pH (5.0-8.0) Ur Specific [place] (1.005-1.030) Urine Protein (Negative) Urine Glucose (UA) (Negative) Urine Ketones (Negative) Urine Occult Blood (Negative) Urine Nitrite (Negative) Urine Bilirubin (Negative) Urine Urobilinogen (0.2-1.0) Ur Leukocyte Esterase (Negative) Urine RBC (0-5) /hpf Urine WBC (0-5) /hpf Ur Epithelial Cells (0-5) /hpf Amorphous Sediment (NOT SEEN) /hpf Urine Bacteria (FEW) /hpf Urine Mucus (FEW) /hpf Mycoplasma pneumon IgM (NEGATIVE) 10/13/18 10/13/18 Range/Units 15:29 15:29 WBC (4.23-9.07) K/mm3 RBC (4.63-6.08) M/mm3 Hgb (13.7-17.5) gm/L Hct (40.1-51.0) % MCV (79.0-92.2) fl MCH (25.7-32.2) pg MCHC (32.2-35.5) g/dl RDW Std Deviation (35.1-43.9) fL Plt Count (163-337) K/mm3 MPV (9.4-12.3) fl Neutrophils % (Manual) (40-60) % Band Neutrophils % (0-10) % Lymphocytes % (Manual) (20-40) % Atypical Lymphs % % Monocytes % (Manual) (2-10) % Eosinophils % (Manual) (0.8-7.0) % Basophils % (Manual) (0.2-1.2) Platelet Estimate RBC Morph Comment ESR (0-15) mm/hr PT (9.5-12.1) SECONDS INR Sodium (136-145) mEq/L Potassium (3.5-5.1) mEq/L Chloride (98-107) mEq/L Carbon Dioxide (21-32) mEq/L Anion Gap (5-15) BUN (7-18) mg/dL Creatinine (0.7-1.3) mg/dL Est Cr Clr Drug Dosing mL/min Estimated GFR (MDRD) (>60) mL/min BUN/Creatinine Ratio (14-18) Glucose (83-115) mg/dL Lactic Acid 1.8 (0.4-2.0) mmol/L Calcium (8.5-10.1) mg/dL Magnesium (1.8-2.4) mg/dl Total Bilirubin (0.2-1.0) mg/dL AST (15-37) U/L ALT (16-63) U/L Alkaline Phosphatase (46-116) U/L CK-MB (CK-2) (0-3.6) ng/ml Troponin I (0.00-0.056) ng/mL C-Reactive Protein (<1.0) mg/dL NT-Pro-B Natriuret Pep (0-450) pg/mL Total Protein (6.4-8.2) g/dl Albumin (3.4-5.0) g/dl Globulin gm/dL Albumin/Globulin Ratio (1-2) Urine Color (Yellow) Urine Appearance (Clear) Urine pH (5.0-8.0) Ur Specific [place] (1.005-1.030) Urine Protein (Negative) Urine Glucose (UA) (Negative) Urine Ketones (Negative) Urine Occult Blood (Negative) Urine Nitrite (Negative) Urine Bilirubin (Negative) Urine Urobilinogen (0.2-1.0) Ur Leukocyte Esterase (Negative) Urine RBC (0-5) /hpf Urine WBC (0-5) /hpf Ur Epithelial Cells (0-5) /hpf Amorphous Sediment (NOT SEEN) /hpf Urine Bacteria (FEW) /hpf Urine Mucus (FEW) /hpf Mycoplasma pneumon IgM Negative (NEGATIVE) Result Diagrams: 10/13/18 15:29 10/13/18 15:29 Brendan Results Last 24 hrs: Microbiology 10/13/18 16:25 Influenza Type A Antigen Screen - Final Nasal Aspirate, Unspecified NEGATIVE INFLUENZA A VIRUS AG Influenza Type B Antigen Screen - Final NEGATIVE INFLUENZA B VIRUS AG - Problem List (1) Acute febrile illness SNOMED Code(s): 761850679 ICD Code: R50.9 - FEVER, UNSPECIFIED Status: Acute Priority: High Current Visit: Yes (2) Cellulitis of right leg without foot SNOMED Code(s): 176700384 ICD Code: L03.115 - CELLULITIS OF RIGHT LOWER LIMB Status: Acute Priority : High Current Visit: Yes (3) Subtherapeutic international normalized ratio (INR) SNOMED Code(s): 699052449, 375519790 ICD Code: R79.1 - ABNORMAL COAGULATION PROFILE Status: Acute Priority: High Current Visit: Yes (4) Type 2 diabetes mellitus SNOMED Code(s): 90007088 ICD Code: E11.9 - TYPE 2 DIABETES MELLITUS WITHOUT COMPLICATIONS Status: Chronic Priority: Medium Current Visit: Yes Qualifiers: Diabetes mellitus long-term insulin 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: 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 Diabetes mellitus complication status: with circulatory complication Problem List Initiated/Reviewed/Updated: Yes Orders Last 24hrs: Active Orders 24 hr Category Date Time Status Admission Status [Patient Status] [ADT] Routine ADT 10/13/18 19:58 Active Patient Status [ADT] Routine ADT 10/13/18 19:45 Active Blood Glucose Check, Bedside [RC] QIDACANDBED Care 10/13/18 20:21 Ordered EKG Documentation Completion [RC] STAT Care 10/13/18 14:53 Active Height and Weight [RC] DAILY Care 10/13/18 20:03 Ordered Insert Mueller Catheter [Insert Urinary Catheter] [OM.PC] Care 10/13/18 13:50 Ordered Stat Intake and Output [RC] QSHIFT Care 10/13/18 20:04 Ordered May Shower [RC] ASDIRECTED Care 10/13/18 20:03 Ordered Oxygen Therapy [RC] PRN Care 10/13/18 20:03 Active RT Aerosol Therapy [RC] ASDIRECTED Care 10/13/18 20:07 Ordered Up With Assistance [RC] ASDIRECTED Care 10/13/18 20:03 Ordered Urinary Catheter Assessment [RC] ASDIRECTED Care 10/13/18 13:50 Active VTE/DVT Education [RC] PER UNIT ROUTINE Care 10/13/18 20:03 Ordered Vital Signs [RC] Q4H Care 10/13/18 20:03 Ordered Consult to Case Management/Case Worker [CONS] Cons 10/13/18 20:03 Ordered Routine Consult to Diabetic Nurse Specialist [CONS] Routine Cons 10/13/18 20:03 Ordered Consult to Administrative Representative [CONS] Routine Cons 10/13/18 20:03 Ordered OT Evaluation and Treatment [CONS] Routine Cons 10/13/18 20:03 Ordered PT Evaluation and Treatment [CONS] Routine Cons 10/13/18 20:03 Active PT Evaluation and Treatment [CONS] Routine Cons 10/13/18 20:13 Ordered Respiratory Care Assess and Treatment [CONS] Routine Cons 10/13/18 20:03 Ordered [place] [employer] Diet [DIET] Diet 10/14/18 Breakfast Ordered Heart Healthy Diet [DIET] Diet 10/13/18 Dinner Active Chest 1V Frontal [CR] Stat Exams 10/13/18 14:53 Taken Echo Comp wo Cont [US] Routine Exams 10/14/18 09:00 Ordered BASIC METABOLIC PANEL,BMP [CHEM] AM Lab 10/14/18 05:11 Ordered BASIC METABOLIC PANEL,BMP [CHEM] AM Lab 10/15/18 05:11 Ordered BASIC METABOLIC PANEL,BMP [CHEM] AM Lab 10/16/18 05:11 Ordered BASIC METABOLIC PANEL,BMP [CHEM] AM Lab 10/17/18 05:11 Ordered BASIC METABOLIC PANEL,BMP [CHEM] AM Lab 10/18/18 05:11 Ordered C-REACTIVE PROTEIN [CHEM] AM Lab 10/14/18 05:11 Ordered C-REACTIVE PROTEIN [CHEM] AM Lab 10/15/18 05:11 Ordered C-REACTIVE PROTEIN [CHEM] AM Lab 10/16/18 05:11 Ordered C-REACTIVE PROTEIN [CHEM] AM Lab 10/17/18 05:11 Ordered C-REACTIVE PROTEIN [CHEM] AM Lab 10/18/18 05:11 Ordered CBC WITH AUTO DIFF [HEME] AM Lab 10/14/18 05:11 Ordered CBC WITH AUTO DIFF [HEME] AM Lab 10/15/18 05:11 Ordered CBC WITH AUTO DIFF [HEME] AM Lab 10/16/18 05:11 Ordered CBC WITH AUTO DIFF [HEME] AM Lab 10/17/18 05:11 Ordered CBC WITH AUTO DIFF [HEME] AM Lab 10/18/18 05:11 Ordered CULTURE BLOOD [BC] Stat Lab 10/13/18 15:29 Received CULTURE BLOOD [BC] Stat Lab 10/13/18 15:41 Received CULTURE WOUND [RM] Routine Lab 10/13/18 20:13 Ordered CULTURE WOUND [RM] Routine Lab 10/13/18 20:13 Ordered GLYCOSYLATED HEMOGLOBIN,HGBA1C [CHEM] AM Lab 10/14/18 05:11 Ordered LIPID PANEL [CHEM] AM Lab 10/14/18 05:11 Ordered MAGNESIUM [CHEM] AM Lab 10/14/18 05:11 Ordered MAGNESIUM [CHEM] AM Lab 10/15/18 05:11 Ordered MAGNESIUM [CHEM] AM Lab 10/16/18 05:11 Ordered MAGNESIUM [CHEM] AM Lab 10/17/18 05:11 Ordered MAGNESIUM [CHEM] AM Lab 10/18/18 05:11 Ordered METH-RESIST S.AUR,MRSA BY PCR [MOLEC] Routine Lab 10/13/18 20:34 Ordered PRO B-TYPE NATRIUR PEPT,BNPPRO [CHEM] AM Lab 10/14/18 05:11 Ordered PRO B-TYPE NATRIUR PEPT,BNPPRO [CHEM] AM Lab 10/15/18 05:11 Ordered PRO B-TYPE NATRIUR PEPT,BNPPRO [CHEM] AM Lab 10/16/18 05:11 Ordered PRO B-TYPE NATRIUR PEPT,BNPPRO [CHEM] AM Lab 10/17/18 05:11 Ordered PRO B-TYPE NATRIUR PEPT,BNPPRO [CHEM] AM Lab 10/18/18 05:11 Ordered Acetaminophen [Tylenol] Med 10/13/18 20:03 Ordered 650 mg PO Q4H PRN Albuterol [Proventil Neb Soln] Med 10/13/18 20:03 Ordered 2.5 mg NEB Q2H PRN Albuterol/Ipratropium [DuoNeb 3.0-0.5 MG/3 ML] Med 10/13/18 20:03 Ordered 3 ml NEB Q4H PRN Bisacodyl [Dulcolax] Med 10/13/18 20:03 Ordered 5 mg PO DAILY PRN Dextrose 50% in Water Med 10/13/18 20:20 Ordered 50 ml IVPUSH ASDIRECTED PRN Diltiazem [Cardizem CD] Med 10/14/18 09:00 Ordered 180 mg PO DAILY Docusate Sodium [Colace] Med 10/13/18 20:03 Ordered 100 mg PO BID PRN Docusate Sodium/Sennosides [Senna Plus] Med 10/13/18 20:03 Ordered 1 tab PO BID PRN Famotidine [Pepcid] Med 10/13/18 21:00 Ordered 20 mg PO BID Furosemide [Lasix] 100 mg Med 10/13/18 20:15 Ordered Sodium Chloride 0.9% [Normal Saline] 90 ml IV TITRATE Glimepiride [Amaryl] Med 10/14/18 09:00 Ordered 4 mg PO DAILY HYDROmorphone [Dilaudid] Med 10/13/18 20:03 Ordered 0.25 mg IVPUSH Q2H PRN Insulin Lispro [HumaLOG] Med 10/13/18 22:00 Ordered See Protocol SUBCUT QIDACANDBED Ketorolac [Toradol] Med 10/13/18 20:03 Ordered 30 mg IV Q6H PRN Lisinopril [Prinivil] Med 10/14/18 09:00 Ordered 5 mg PO DAILY Magnesium Hydroxide [Milk of Magnesia] Med 10/13/18 20:03 Ordered 30 ml PO Q12H PRN Metoprolol Tartrate [Lopressor] Med 10/13/18 20:23 Ordered 5 mg IVPUSH Q4H PRN Ondansetron [Zofran ODT] Med 10/13/18 20:03 Ordered 4 mg PO Q4H PRN Ondansetron [Zofran] Med 10/13/18 20:03 Ordered 4 mg IV Q4H PRN Pharmacy to Dose - Vancomycin Med 10/14/18 08:00 Ordered 1 dose .XX ASDIRECTED Pharmacy to Dose - Warfarin Med 10/13/18 20:15 Ordered 1 dose .XX ASDIRECTED Polyethylene Glycol 3350 [MiraLAX] Med 10/13/18 20:03 Ordered 17 gm PO DAILY PRN Pravastatin Sodium Med 10/13/18 21:00 Ordered 20 mg PO BEDTIME Saccharomyces Boulardii [Florastor] Med 10/13/18 21:00 Ordered 250 mg PO BID Sodium Chloride 0.9% [Normal Saline] 1,000 ml Med 10/13/18 20:30 Ordered IV ASDIRECTED Temazepam [Restoril] Med 10/13/18 20:03 Ordered 7.5 mg PO BEDTIME PRN Vancomycin 500 mg Med 10/13/18 20:15 Ordered Sodium Chloride 0.9% [Normal Saline] 250 ml IV ONETIME cefTRIAXone [Rocephin] 2 gm Med 10/13/18 16:30 Active Sodium Chloride 0.9% [Normal Saline] 100 ml IV Q24H cefTRIAXone [Rocephin] 2 gm Med 10/14/18 08:00 Ordered Sodium Chloride 0.9% [Normal Saline] 100 ml IV Q24H metFORMIN [Glucophage] Med 10/13/18 21:00 Ordered 1,000 mg PO BID Blood Culture x2 Reflex Set [OM.PC] Stat Oth 10/13/18 14:54 Ordered Resuscitation Status Routine Resus Stat 10/13/18 20:03 Ordered Medication Orders Acetaminophen (Tylenol) 650 mg PO Q4H PRN PRN Reason: Pain (Mild 1-3)/fever Albuterol (Proventil Neb Soln) 2.5 mg NEB Q2H PRN PRN Reason: Shortness Of Breath/wheezing Albuterol/Ipratropium (Duoneb 3.0-0.5 Mg/3 Ml) 3 ml NEB Q4H PRN PRN Reason: Shortness Of Breath/wheezing Bisacodyl (Dulcolax) 5 mg PO DAILY PRN PRN Reason: Constipation Dextrose/Water (Dextrose 50% In Water) 50 ml IVPUSH ASDIRECTED PRN PRN Reason: Hypoglycemia Diltiazem HCl (Cardizem Cd) 180 mg PO DAILY [facility]ABI[facility] Docusate Sodium (Colace) 100 mg PO BID PRN PRN Reason: Constipation Famotidine (Pepcid) 20 mg PO BID [facility] Glimepiride (Amaryl) 4 mg PO DAILY [facility] Hydromorphone HCl (Dilaudid) 0.25 mg IVPUSH Q2H PRN PRN Reason: Pain (severe 7-10) Ceftriaxone Sodium 2 gm/ (Sodium Chloride) 100 mls @ 200 mls/hr IV Q24H FABIENNE Last Admin: 02/15/19 16:48 Dose: 200 mls/hr Vancomycin HCl 500 mg/ Sodium (Chloride) 250 mls @ 166.667 mls/hr IV ONETIME ONE Stop: 10/13/18 20:16 Furosemide 100 mg/ Sodium (Chloride) 100 mls @ 4 mls/hr IV TITRATE [facility] Ceftriaxone Sodium 2 gm/ (Sodium Chloride) 100 mls @ 200 mls/hr IV Q24H [facility] Sodium Chloride (Normal Saline) 1,000 mls @ 100 mls/hr IV ASDIRECTED [facility] Insulin Human Lispro (Humalog) 0 unit SUBCUT QIDACANDBED [facility]; Protocol Ketorolac Tromethamine (Toradol) 30 mg IV Q6H PRN PRN Reason: Pain (moderate 4-6) Lisinopril (Prinivil) 5 mg PO DAILY [facility] Magnesium Hydroxide (Milk Of Magnesia) 30 ml PO Q12H PRN PRN Reason: Constipation Metoprolol Tartrate (Lopressor) 5 mg IVPUSH Q4H PRN PRN Reason: Tachycardia Non-Formulary Medication (Metformin [Glucophage]) 1,000 mg PO BID [facility] Non-Formulary Medication (Pravastatin Sodium) 20 mg PO BEDTIME [facility] Ondansetron HCl (Zofran Odt) 4 mg PO Q4H PRN PRN Reason: nausea, able to take PO Ondansetron HCl (Zofran) 4 mg IV Q4H PRN PRN Reason: Nausea/Vomiting Polyethylene Glycol (Miralax) 17 gm PO DAILY PRN PRN Reason: Constipation Saccharomyces Boulardii (Florastor) 250 mg PO BID [facility] Senna/Docusate Sodium (Senna Plus) 1 tab PO BID PRN PRN Reason: Constipation Temazepam (Restoril) 7.5 mg PO BEDTIME PRN PRN Reason: Sleep Vancomycin HCl (Pharmacy To Dose - Vancomycin) 1 dose .XX ASDIRECTED [facility] Warfarin Sodium (Pharmacy To Dose - Warfarin) 1 dose .XX ASDIRECTED [facility] Assessment/Plan Comment:: Assessment/Plan: Acute: Cellulitis bilateral LE * Entrance wounds on both legs * Risk factors: DM2, h/o cellulitis, Pedal edema (wears THIERNO hose at home, says he accidently scratched his legs) * CRP 15.2 * Sepsis Protocol * IVF, LA 1.8 , Blood cultures pending * Rocephin started in ED--> Continue * Add Vancomycin * Wound culture pending * PT consult for wound care * Avoid SCDs, THIERNO hose--> elevate LEs Elevated BNP, Query CHF * 1234 * Bilateral 1+ pitting edema * Risk factors: Afib, HTN, HLD, Heart Murmur, Aortic Valve replacement * ECHO pending * Heart Healthy Diet w/ 2L fluid restriction * Lasix drip; balance with renal function/IVF Atrial Fibrillation * Acute on Chronic * HR 120's in ED--> Cardizem given in ED * EKG in ED shows Afib, 115 bpm, T wave inversion in one aVL and V4-V6 w/ mild ST depression * Continue at home Cardizem 180mg Daily * Metoprolol PRN Hypoxic * Likely 2/2 above * 85% RA--> 91% on 2L NC * Monitor Subtherapeutic INR * Monitor * Pharmacy to dose Warfarin Hypomagnesemia * 1.5 * Monitor and Replenish Dehydration * AGap 16.8 * IVF Chronic: HTN on Lisinopril HLD on Pravastatin * Lipid panel pending Afib on Warfarin and Cardizem Heart murmur Aortic Valve replacement CVA w/ R sided weakness DM2 on metformin * Sliding scale insulin * Blood glucose checks QIDACBED * A1C pending R hip replacement (2014) Plan: Admit to Medical Floor Droplet precautions Routine AM Labs Heart Healthy/ADA diet DVT/GI prophylaxis: On Warfarin, Pepcid CM/SW PT/OT Code Status: Full Code; PCP: Dr. Weaver
[2018-10-13] MEDS: Acetaminophen 325 MG Tab PO PRN (20:50)
[2018-10-13] MEDS ORDERED: Magnesium Oxide 400 MG Tab PO ONE (20:52)
[2018-10-13] MEDS ORDERED: Vancomycin 1500 MG in Sodium Chloride 0.9% 500 ML IV SCH ×3 (21:00)
[2018-10-13] MEDS ORDERED: Warfarin 5 MG Tab PO ONE (21:15)
[2018-10-13] MEDS ORDERED: Ketorolac 30 MG/ML SDV IVPUSH ONE (21:30)
[2018-10-13] MEDS: Furosemide 100 MG in Sodium Chloride 0.9% 90 ML IV SCH (21:46)
[2018-10-13] MEDS: Famotidine 20 MG Tab PO SCH (21:52)
[2018-10-13] MEDS: Simvastatin 10 MG Tab PO SCH (21:53)
[2018-10-13] MEDS: Saccharomyces Boulardii (Probiotic) 250 MG Cap PO SCH (21:53)
[2018-10-13] MEDS: metFORMIN 500 MG Tab PO SCH (21:53)
[2018-10-13] MEDS: Insulin Lispro 100 UNIT/ML 10 ML VIAL SUBCUT SCH (22:03)
[2018-10-13] MEDS: Sodium Chloride 0.9% 1,000 ML IV SCH (23:39)
[2018-10-14 06:50] LABS: HEMOGLOBIN A1C 7.2 % (4.50-6.20)
[2018-10-14] MEDS ORDERED: Ketorolac 15 MG/ML SDV IVPUSH PRN (07:12)
[2018-10-14] MEDS ORDERED: cefTRIAXone 2 GM in Sodium Chloride 0.9% 100 ML IV SCH (08:00)
[2018-10-14] MEDS: Saccharomyces Boulardii (Probiotic) 250 MG Cap PO SCH ×2 (08:45→21:26)
[2018-10-14] MEDS: Famotidine 20 MG Tab PO SCH ×2 (08:45→21:29)
[2018-10-14] MEDS: Diltiazem 180 MG Cap.CD PO SCH (08:47)
[2018-10-14] MEDS: Glimepiride 2 MG Tab PO SCH (08:48)
[2018-10-14] MEDS: metFORMIN 500 MG Tab PO SCH (08:48)
[2018-10-14] MEDS: Insulin Lispro 100 UNIT/ML 10 ML VIAL SUBCUT SCH ×4 (08:49→22:35)
[2018-10-14] MEDS: Metoprolol Tartrate 25 MG Tab PO SCH ×2 (08:49→21:28)
[2018-10-14] MEDS ORDERED: Lisinopril 5 MG Tab PO SCH (09:00)
[2018-10-14] MEDS: Acetaminophen 325 MG Tab PO PRN ×2 (09:26→14:53)
[2018-10-14] MEDS: Sodium Chloride 0.9% 1,000 ML IV SCH ×2 (09:27→21:17)
[2018-10-14] MEDS ORDERED: Magnesium Sulfate/Water 2 GM in Premix Bag 1 BAG IV ONE (12:23)
--- NOTE | 2018-10-14 12:28 | PCM.PN ---
- General Info Date of Service: 10/14/18 Functional Status: Reports: Pain Controlled, Tolerating Diet, Ambulating, Urinating - Review of Systems General: Reports: Weakness HEENT: Reports: No Symptoms Pulmonary: Reports: No Symptoms Cardiovascular: Reports: No Symptoms Gastrointestinal: Reports: No Symptoms Genitourinary: Reports: No Symptoms Musculoskeletal: Reports: No Symptoms Skin: Reports: No Symptoms Neurological: Reports: No Symptoms Psychiatric: Reports: No Symptoms - Patient Data Vitals - Most Recent: Last Vital Signs Temp 36.8 C 10/14/18 11:26 Pulse 105 H 10/14/18 11:26 Resp 16 10/14/18 11:26 BP 120/63 10/14/18 11:26 Pulse Ox 93 L 10/14/18 11:26 Weight - Most Recent: 111.13 kg I&O - Last 24 Hours: Intake & Output 10/13/18 10/14/18 10/14/18 22:59 06:59 14:59 Intake Total 1355 360 Output Total 1850 Balance -495 360 Lab Results Last 24 Hours: Laboratory Results - last 24 hr 10/13/18 10/13/18 10/13/18 Range/Units 13:55 15:29 15:29 WBC 8.26 (4.23-9.07) K/mm3 RBC 4.42 L (4.63-6.08) M/mm3 Hgb 13.2 L (13.7-17.5) gm/L Hct 39.6 L (40.1-51.0) % MCV 89.6 (79.0-92.2) fl MCH 29.9 (25.7-32.2) pg MCHC 33.3 (32.2-35.5) g/dl RDW Std Deviation 42.7 (35.1-43.9) fL Plt Count 144 L (163-337) K/mm3 MPV 9.5 (9.4-12.3) fl Neut % (Auto) (34.0-67.9) % Lymph % (Auto) (21.8-53.1) % [place] % (Auto) (5.3-12.2) % Eos % (Auto) (0.8-7.0) Baso % (Auto) (0.1-1.2) % Neut # (Auto) (1.78-5.38) K/mm3 Lymph # (Auto) (1.32-3.57) K/mm3 [place] # (Auto) (0.30-0.82) K/mm3 Eos # (Auto) (0.04-0.54) K/mm3 Baso # (Auto) (0.01-0.08) K/mm3 Neutrophils % (Manual) 86 H (40-60) % Band Neutrophils % 2 (0-10) % Lymphocytes % (Manual) 11 L (20-40) % Atypical Lymphs % 0 % Monocytes % (Manual) 1 L (2-10) % Eosinophils % (Manual) 0 L (0.8-7.0) % Basophils % (Manual) 0 L (0.2-1.2) Manual Slide Review Platelet Estimate Adequate RBC Morph Comment Normal ESR 44 H (0-15) mm/hr PT (9.5-12.1) SECONDS INR Sodium (136-145) mEq/L Potassium (3.5-5.1) mEq/L Chloride (98-107) mEq/L Carbon Dioxide (21-32) mEq/L Anion Gap (5-15) BUN (7-18) mg/dL Creatinine (0.7-1.3) mg/dL Est Cr Clr Drug Dosing mL/min Estimated GFR (MDRD) (>60) mL/min BUN/Creatinine Ratio (14-18) Glucose (83-115) mg/dL POC Glucose (83-110) mg/dL Hemoglobin A1c (4.50-6.20) % Lactic Acid (0.4-2.0) mmol/L Calcium (8.5-10.1) mg/dL Magnesium (1.8-2.4) mg/dl Total Bilirubin (0.2-1.0) mg/dL AST (15-37) U/L ALT (16-63) U/L Alkaline Phosphatase (46-116) U/L CK-MB (CK-2) (0-3.6) ng/ml Troponin I (0.00-0.056) ng/mL C-Reactive Protein (<1.0) mg/dL NT-Pro-B Natriuret Pep (0-450) pg/mL Total Protein (6.4-8.2) g/dl Albumin (3.4-5.0) g/dl Globulin gm/dL Albumin/Globulin Ratio (1-2) Triglycerides (<150) mg/dL Cholesterol (<200) mg/dL LDL Cholesterol Direct (<100) mg/dL HDL Cholesterol (40-59) mg/dL TSH 3rd Generation (0.358-3.74) uIU/mL Urine Color Yellow (Yellow) Urine Appearance Clear (Clear) Urine pH 6.0 (5.0-8.0) Ur Specific [place] > or = 1.030 (1.005-1.030) Urine Protein 2+ H (Negative) Urine Glucose (UA) Trace H (Negative) Urine Ketones 2+ H (Negative) Urine Occult Blood 1+ H (Negative) Urine Nitrite Negative (Negative) Urine Bilirubin Negative (Negative) Urine Urobilinogen 0.2 (0.2-1.0) Ur Leukocyte Esterase Negative (Negative) Urine RBC 0-5 (0-5) /hpf Urine WBC 0-5 (0-5) /hpf Ur Epithelial Cells 0-5 (0-5) /hpf Amorphous Sediment Few H (NOT SEEN) /hpf Urine Bacteria Few (FEW) /hpf Urine Mucus Few (FEW) /hpf Mycoplasma pneumon IgM (NEGATIVE) 10/13/18 10/13/18 10/13/18 Range/Units 15:29 15:29 15:29 WBC (4.23-9.07) K/mm3 RBC (4.63-6.08) M/mm3 Hgb (13.7-17.5) gm/L Hct (40.1-51.0) % MCV (79.0-92.2) fl MCH (25.7-32.2) pg MCHC (32.2-35.5) g/dl RDW Std Deviation (35.1-43.9) fL Plt Count (163-337) K/mm3 MPV (9.4-12.3) fl Neut % (Auto) (34.0-67.9) % Lymph % (Auto) (21.8-53.1) % [place] % (Auto) (5.3-12.2) % Eos % (Auto) (0.8-7.0) Baso % (Auto) (0.1-1.2) % Neut # (Auto) (1.78-5.38) K/mm3 Lymph # (Auto) (1.32-3.57) K/mm3 [place] # (Auto) (0.30-0.82) K/mm3 Eos # (Auto) (0.04-0.54) K/mm3 Baso # (Auto) (0.01-0.08) K/mm3 Neutrophils % (Manual) (40-60) % Band Neutrophils % (0-10) % Lymphocytes % (Manual) (20-40) % Atypical Lymphs % % Monocytes % (Manual) (2-10) % Eosinophils % (Manual) (0.8-7.0) % Basophils % (Manual) (0.2-1.2) Manual Slide Review Platelet Estimate RBC Morph Comment ESR (0-15) mm/hr PT 16.6 H (9.5-12.1) SECONDS INR 1.54 Sodium 136 (136-145) mEq/L Potassium 3.8 (3.5-5.1) mEq/L Chloride 101 (98-107) mEq/L Carbon Dioxide 22 (21-32) mEq/L Anion Gap 16.8 H (5-15) BUN 19 H (7-18) mg/dL Creatinine 1.3 (0.7-1.3) mg/dL Est Cr Clr Drug Dosing 49.91 mL/min Estimated GFR (MDRD) 54 (>60) mL/min BUN/Creatinine Ratio 14.6 (14-18) Glucose 204 H (83-115) mg/dL POC Glucose (83-110) mg/dL Hemoglobin A1c (4.50-6.20) % Lactic Acid (0.4-2.0) mmol/L Calcium 8.6 (8.5-10.1) mg/dL Magnesium 1.5 L (1.8-2.4) mg/dl Total Bilirubin 0.9 (0.2-1.0) mg/dL AST 29 (15-37) U/L ALT 40 (16-63) U/L Alkaline Phosphatase 86 (46-116) U/L CK-MB (CK-2) 0.6 (0-3.6) ng/ml Troponin I < 0.017 (0.00-0.056) ng/mL C-Reactive Protein 15.2 H* (<1.0) mg/dL NT-Pro-B Natriuret Pep 1234 H (0-450) pg/mL Total Protein 7.5 (6.4-8.2) g/dl Albumin 3.8 (3.4-5.0) g/dl Globulin 3.7 gm/dL Albumin/Globulin Ratio 1.0 (1-2) Triglycerides (<150) mg/dL Cholesterol (<200) mg/dL LDL Cholesterol Direct (<100) mg/dL HDL Cholesterol (40-59) mg/dL TSH 3rd Generation (0.358-3.74) uIU/mL Urine Color (Yellow) Urine Appearance (Clear) Urine pH (5.0-8.0) Ur Specific [place] (1.005-1.030) Urine Protein (Negative) Urine Glucose (UA) (Negative) Urine Ketones (Negative) Urine Occult Blood (Negative) Urine Nitrite (Negative) Urine Bilirubin (Negative) Urine Urobilinogen (0.2-1.0) Ur Leukocyte Esterase (Negative) Urine RBC (0-5) /hpf Urine WBC (0-5) /hpf Ur Epithelial Cells (0-5) /hpf Amorphous Sediment (NOT SEEN) /hpf Urine Bacteria (FEW) /hpf Urine Mucus (FEW) /hpf Mycoplasma pneumon IgM (NEGATIVE) 10/13/18 10/13/18 10/13/18 Range/Units 15:29 15:29 21:32 WBC (4.23-9.07) K/mm3 RBC (4.63-6.08) M/mm3 Hgb (13.7-17.5) gm/L Hct (40.1-51.0) % MCV (79.0-92.2) fl MCH (25.7-32.2) pg MCHC (32.2-35.5) g/dl RDW Std Deviation (35.1-43.9) fL Plt Count (163-337) K/mm3 MPV (9.4-12.3) fl Neut % (Auto) (34.0-67.9) % Lymph % (Auto) (21.8-53.1) % [place] % (Auto) (5.3-12.2) % Eos % (Auto) (0.8-7.0) Baso % (Auto) (0.1-1.2) % Neut # (Auto) (1.78-5.38) K/mm3 Lymph # (Auto) (1.32-3.57) K/mm3 [place] # (Auto) (0.30-0.82) K/mm3 Eos # (Auto) (0.04-0.54) K/mm3 Baso # (Auto) (0.01-0.08) K/mm3 Neutrophils % (Manual) (40-60) % Band Neutrophils % (0-10) % Lymphocytes % (Manual) (20-40) % Atypical Lymphs % % Monocytes % (Manual) (2-10) % Eosinophils % (Manual) (0.8-7.0) % Basophils % (Manual) (0.2-1.2) Manual Slide Review Platelet Estimate RBC Morph Comment ESR (0-15) mm/hr PT (9.5-12.1) SECONDS INR Sodium (136-145) mEq/L Potassium (3.5-5.1) mEq/L Chloride (98-107) mEq/L Carbon Dioxide (21-32) mEq/L Anion Gap (5-15) BUN (7-18) mg/dL Creatinine (0.7-1.3) mg/dL Est Cr Clr Drug Dosing mL/min Estimated GFR (MDRD) (>60) mL/min BUN/Creatinine Ratio (14-18) Glucose (83-115) mg/dL POC Glucose 220 H (83-110) mg/dL Hemoglobin A1c (4.50-6.20) % Lactic Acid 1.8 (0.4-2.0) mmol/L Calcium (8.5-10.1) mg/dL Magnesium (1.8-2.4) mg/dl Total Bilirubin (0.2-1.0) mg/dL AST (15-37) U/L ALT (16-63) U/L Alkaline Phosphatase (46-116) U/L CK-MB (CK-2) (0-3.6) ng/ml Troponin I (0.00-0.056) ng/mL C-Reactive Protein (<1.0) mg/dL NT-Pro-B Natriuret Pep (0-450) pg/mL Total Protein (6.4-8.2) g/dl Albumin (3.4-5.0) g/dl Globulin gm/dL Albumin/Globulin Ratio (1-2) Triglycerides (<150) mg/dL Cholesterol (<200) mg/dL LDL Cholesterol Direct (<100) mg/dL HDL Cholesterol (40-59) mg/dL TSH 3rd Generation (0.358-3.74) uIU/mL Urine Color (Yellow) Urine Appearance (Clear) Urine pH (5.0-8.0) Ur Specific [place] (1.005-1.030) Urine Protein (Negative) Urine Glucose (UA) (Negative) Urine Ketones (Negative) Urine Occult Blood (Negative) Urine Nitrite (Negative) Urine Bilirubin (Negative) Urine Urobilinogen (0.2-1.0) Ur Leukocyte Esterase (Negative) Urine RBC (0-5) /hpf Urine WBC (0-5) /hpf Ur Epithelial Cells (0-5) /hpf Amorphous Sediment (NOT SEEN) /hpf Urine Bacteria (FEW) /hpf Urine Mucus (FEW) /hpf Mycoplasma pneumon IgM Negative (NEGATIVE) 10/14/18 10/14/18 10/14/18 Range/Units 06:00 06:00 06:00 WBC 5.82 (4.23-9.07) K/mm3 RBC 4.32 L (4.63-6.08) M/mm3 Hgb 12.8 L (13.7-17.5) gm/L Hct 38.8 L (40.1-51.0) % MCV 89.8 (79.0-92.2) fl MCH 29.6 (25.7-32.2) pg MCHC 33.0 (32.2-35.5) g/dl RDW Std Deviation 42.6 (35.1-43.9) fL Plt Count 126 L (163-337) K/mm3 MPV 9.1 L (9.4-12.3) fl Neut % (Auto) 83.3 H (34.0-67.9) % Lymph % (Auto) 11.7 L (21.8-53.1) % [place] % (Auto) 4.6 L (5.3-12.2) % Eos % (Auto) 0 L (0.8-7.0) Baso % (Auto) 0.2 (0.1-1.2) % Neut # (Auto) 4.85 (1.78-5.38) K/mm3 Lymph # (Auto) 0.68 L (1.32-3.57) K/mm3 [place] # (Auto) 0.27 L (0.30-0.82) K/mm3 Eos # (Auto) 0.00 L (0.04-0.54) K/mm3 Baso # (Auto) 0.01 (0.01-0.08) K/mm3 Neutrophils % (Manual) (40-60) % Band Neutrophils % (0-10) % Lymphocytes % (Manual) (20-40) % Atypical Lymphs % % Monocytes % (Manual) (2-10) % Eosinophils % (Manual) (0.8-7.0) % Basophils % (Manual) (0.2-1.2) Manual Slide Review Not Reportable Platelet Estimate RBC Morph Comment ESR (0-15) mm/hr PT (9.5-12.1) SECONDS INR Sodium 138 (136-145) mEq/L Potassium 3.3 L (3.5-5.1) mEq/L Chloride 103 (98-107) mEq/L Carbon Dioxide 24 (21-32) mEq/L Anion Gap 14.3 (5-15) BUN 22 H (7-18) mg/dL Creatinine 1.4 H (0.7-1.3) mg/dL Est Cr Clr Drug Dosing 46.35 mL/min Estimated GFR (MDRD) 49 (>60) mL/min BUN/Creatinine Ratio 15.7 (14-18) Glucose 187 H (83-115) mg/dL POC Glucose (83-110) mg/dL Hemoglobin A1c 7.20 H (4.50-6.20) % Lactic Acid (0.4-2.0) mmol/L Calcium 8.1 L (8.5-10.1) mg/dL Magnesium 1.7 L (1.8-2.4) mg/dl Total Bilirubin (0.2-1.0) mg/dL AST (15-37) U/L ALT (16-63) U/L Alkaline Phosphatase (46-116) U/L CK-MB (CK-2) (0-3.6) ng/ml Troponin I (0.00-0.056) ng/mL C-Reactive Protein 18.2 H* (<1.0) mg/dL NT-Pro-B Natriuret Pep (0-450) pg/mL Total Protein (6.4-8.2) g/dl Albumin (3.4-5.0) g/dl Globulin gm/dL Albumin/Globulin Ratio (1-2) Triglycerides 99 (<150) mg/dL Cholesterol 130 (<200) mg/dL LDL Cholesterol Direct 77 (<100) mg/dL HDL Cholesterol 40.0 (40-59) mg/dL TSH 3rd Generation 2.135 (0.358-3.74) uIU/mL Urine Color (Yellow) Urine Appearance (Clear) Urine pH (5.0-8.0) Ur Specific [place] (1.005-1.030) Urine Protein (Negative) Urine Glucose (UA) (Negative) Urine Ketones (Negative) Urine Occult Blood (Negative) Urine Nitrite (Negative) Urine Bilirubin (Negative) Urine Urobilinogen (0.2-1.0) Ur Leukocyte Esterase (Negative) Urine RBC (0-5) /hpf Urine WBC (0-5) /hpf Ur Epithelial Cells (0-5) /hpf Amorphous Sediment (NOT SEEN) /hpf Urine Bacteria (FEW) /hpf Urine Mucus (FEW) /hpf Mycoplasma pneumon IgM (NEGATIVE) 10/14/18 10/14/18 10/14/18 Range/Units 06:00 06:00 06:01 WBC (4.23-9.07) K/mm3 RBC (4.63-6.08) M/mm3 Hgb (13.7-17.5) gm/L Hct (40.1-51.0) % MCV (79.0-92.2) fl MCH (25.7-32.2) pg MCHC (32.2-35.5) g/dl RDW Std Deviation (35.1-43.9) fL Plt Count (163-337) K/mm3 MPV (9.4-12.3) fl Neut % (Auto) (34.0-67.9) % Lymph % (Auto) (21.8-53.1) % [place] % (Auto) (5.3-12.2) % Eos % (Auto) (0.8-7.0) Baso % (Auto) (0.1-1.2) % Neut # (Auto) (1.78-5.38) K/mm3 Lymph # (Auto) (1.32-3.57) K/mm3 [place] # (Auto) (0.30-0.82) K/mm3 Eos # (Auto) (0.04-0.54) K/mm3 Baso # (Auto) (0.01-0.08) K/mm3 Neutrophils % (Manual) (40-60) % Band Neutrophils % (0-10) % Lymphocytes % (Manual) (20-40) % Atypical Lymphs % % Monocytes % (Manual) (2-10) % Eosinophils % (Manual) (0.8-7.0) % Basophils % (Manual) (0.2-1.2) Manual Slide Review Platelet Estimate RBC Morph Comment ESR (0-15) mm/hr PT 16.1 H (9.5-12.1) SECONDS INR 1.49 Sodium (136-145) mEq/L Potassium (3.5-5.1) mEq/L Chloride (98-107) mEq/L Carbon Dioxide (21-32) mEq/L Anion Gap (5-15) BUN (7-18) mg/dL Creatinine (0.7-1.3) mg/dL Est Cr Clr Drug Dosing mL/min Estimated GFR (MDRD) (>60) mL/min BUN/Creatinine Ratio (14-18) Glucose (83-115) mg/dL POC Glucose 203 H (83-110) mg/dL Hemoglobin A1c (4.50-6.20) % Lactic Acid (0.4-2.0) mmol/L Calcium (8.5-10.1) mg/dL Magnesium (1.8-2.4) mg/dl Total Bilirubin (0.2-1.0) mg/dL AST (15-37) U/L ALT (16-63) U/L Alkaline Phosphatase (46-116) U/L CK-MB (CK-2) (0-3.6) ng/ml Troponin I (0.00-0.056) ng/mL C-Reactive Protein (<1.0) mg/dL NT-Pro-B Natriuret Pep 2085 H (0-450) pg/mL Total Protein (6.4-8.2) g/dl Albumin (3.4-5.0) g/dl Globulin gm/dL Albumin/Globulin Ratio (1-2) Triglycerides (<150) mg/dL Cholesterol (<200) mg/dL LDL Cholesterol Direct (<100) mg/dL HDL Cholesterol (40-59) mg/dL TSH 3rd Generation (0.358-3.74) uIU/mL Urine Color (Yellow) Urine Appearance (Clear) Urine pH (5.0-8.0) Ur Specific [place] (1.005-1.030) Urine Protein (Negative) Urine Glucose (UA) (Negative) Urine Ketones (Negative) Urine Occult Blood (Negative) Urine Nitrite (Negative) Urine Bilirubin (Negative) Urine Urobilinogen (0.2-1.0) Ur Leukocyte Esterase (Negative) Urine RBC (0-5) /hpf Urine WBC (0-5) /hpf Ur Epithelial Cells (0-5) /hpf Amorphous Sediment (NOT SEEN) /hpf Urine Bacteria (FEW) /hpf Urine Mucus (FEW) /hpf Mycoplasma pneumon IgM (NEGATIVE) 10/14/18 Range/Units 11:44 WBC (4.23-9.07) K/mm3 RBC (4.63-6.08) M/mm3 Hgb (13.7-17.5) gm/L Hct (40.1-51.0) % MCV (79.0-92.2) fl MCH (25.7-32.2) pg MCHC (32.2-35.5) g/dl RDW Std Deviation (35.1-43.9) fL Plt Count (163-337) K/mm3 MPV (9.4-12.3) fl Neut % (Auto) (34.0-67.9) % Lymph % (Auto) (21.8-53.1) % [place] % (Auto) (5.3-12.2) % Eos % (Auto) (0.8-7.0) Baso % (Auto) (0.1-1.2) % Neut # (Auto) (1.78-5.38) K/mm3 Lymph # (Auto) (1.32-3.57) K/mm3 [place] # (Auto) (0.30-0.82) K/mm3 Eos # (Auto) (0.04-0.54) K/mm3 Baso # (Auto) (0.01-0.08) K/mm3 Neutrophils % (Manual) (40-60) % Band Neutrophils % (0-10) % Lymphocytes % (Manual) (20-40) % Atypical Lymphs % % Monocytes % (Manual) (2-10) % Eosinophils % (Manual) (0.8-7.0) % Basophils % (Manual) (0.2-1.2) Manual Slide Review Platelet Estimate RBC Morph Comment ESR (0-15) mm/hr PT (9.5-12.1) SECONDS INR Sodium (136-145) mEq/L Potassium (3.5-5.1) mEq/L Chloride (98-107) mEq/L Carbon Dioxide (21-32) mEq/L Anion Gap (5-15) BUN (7-18) mg/dL Creatinine (0.7-1.3) mg/dL Est Cr Clr Drug Dosing mL/min Estimated GFR (MDRD) (>60) mL/min BUN/Creatinine Ratio (14-18) Glucose (83-115) mg/dL POC Glucose 225 H (83-110) mg/dL Hemoglobin A1c (4.50-6.20) % Lactic Acid (0.4-2.0) mmol/L Calcium (8.5-10.1) mg/dL Magnesium (1.8-2.4) mg/dl Total Bilirubin (0.2-1.0) mg/dL AST (15-37) U/L ALT (16-63) U/L Alkaline Phosphatase (46-116) U/L CK-MB (CK-2) (0-3.6) ng/ml Troponin I (0.00-0.056) ng/mL C-Reactive Protein (<1.0) mg/dL NT-Pro-B Natriuret Pep (0-450) pg/mL Total Protein (6.4-8.2) g/dl Albumin (3.4-5.0) g/dl Globulin gm/dL Albumin/Globulin Ratio (1-2) Triglycerides (<150) mg/dL Cholesterol (<200) mg/dL LDL Cholesterol Direct (<100) mg/dL HDL Cholesterol (40-59) mg/dL TSH 3rd Generation (0.358-3.74) uIU/mL Urine Color (Yellow) Urine Appearance (Clear) Urine pH (5.0-8.0) Ur Specific [place] (1.005-1.030) Urine Protein (Negative) Urine Glucose (UA) (Negative) Urine Ketones (Negative) Urine Occult Blood (Negative) Urine Nitrite (Negative) Urine Bilirubin (Negative) Urine Urobilinogen (0.2-1.0) Ur Leukocyte Esterase (Negative) Urine RBC (0-5) /hpf Urine WBC (0-5) /hpf Ur Epithelial Cells (0-5) /hpf Amorphous Sediment (NOT SEEN) /hpf Urine Bacteria (FEW) /hpf Urine Mucus (FEW) /hpf Mycoplasma pneumon IgM (NEGATIVE) Brendan Results Last 24 Hours: Microbiology 10/13/18 15:41 Aerobic Blood Culture - Preliminary Blood - Venous - Lab Draw Gram Positive Cocci In Chains Anaerobic Blood Culture - Preliminary Gram Positive Cocci In Chains 10/13/18 15:29 Aerobic Blood Culture - Preliminary Blood - Venous Gram Positive Cocci In Chains Anaerobic Blood Culture - Preliminary Gram Positive Cocci In Chains 10/13/18 16:25 Influenza Type A Antigen Screen - Final Nasal Aspirate, Unspecified NEGATIVE INFLUENZA A VIRUS AG Influenza Type B Antigen Screen - Final NEGATIVE INFLUENZA B VIRUS AG Med Orders - Current: Current Medications Acetaminophen (Tylenol) 650 mg PO Q4H PRN PRN Reason: Pain (Mild 1-3)/fever Last Admin: 10/14/18 09:26 Dose: 650 mg Albuterol (Proventil Neb Soln) 2.5 mg NEB Q2H PRN PRN Reason: Shortness Of Breath/wheezing Albuterol/Ipratropium (Duoneb 3.0-0.5 Mg/3 Ml) 3 ml NEB Q4H PRN PRN Reason: Shortness Of Breath/wheezing Bisacodyl (Dulcolax) 5 mg PO DAILY PRN PRN Reason: Constipation Dextrose/Water (Dextrose 50% In Water) 50 ml IVPUSH ASDIRECTED PRN PRN Reason: Hypoglycemia Diltiazem HCl (Cardizem Cd) 180 mg PO DAILY [facility] Last Admin: 10/14/18 08:47 Dose: 180 mg Docusate Sodium (Colace) 100 mg PO BID PRN PRN Reason: Constipation Famotidine (Pepcid) 20 mg PO BID [facility] Last Admin: 10/14/18 08:45 Dose: 20 mg Glimepiride (Amaryl) 4 mg PO DAILY [facility] Last Admin: 10/14/18 08:48 Dose: 4 mg Ceftriaxone Sodium 2 gm/ (Sodium Chloride) 100 mls @ 200 mls/hr IV Q24H [facility] Last Admin: 10/13/18 16:48 Dose: 200 mls/hr Furosemide 100 mg/ Sodium (Chloride) 100 mls @ 4 mls/hr IV TITRATE [facility] Last Admin: 10/13/18 21:46 Dose: 4 mg/hr, 4 mls/hr Sodium Chloride (Normal Saline) 1,000 mls @ 100 mls/hr IV ASDIRECTED [facility] Last Admin: 10/14/18 09:27 Dose: 100 mls/hr Vancomycin HCl 1 gm/Vancomycin HCl 500 mg/ Sodium Chloride 500 mls @ 333.025 mls/hr IV Q18H [facility] Magnesium Sulfate 2 gm/ Premix 50 mls @ 25 mls/hr IV ONETIME ONE Stop: 10/14/18 14:22 Insulin Human Lispro (Humalog) 0 unit SUBCUT QIDACANDBED [facility]; Protocol Last Admin: 10/14/18 08:49 Dose: 2 units Ketorolac Tromethamine (Toradol) 15 mg IVPUSH Q8H PRN PRN Reason: Pain/Fever Magnesium Hydroxide (Milk Of Magnesia) 30 ml PO Q12H PRN PRN Reason: Constipation Metoprolol Tartrate (Lopressor) 5 mg IVPUSH Q4H PRN PRN Reason: Tachycardia Metoprolol Tartrate (Lopressor) 25 mg PO Q12H [facility] Last Admin: 10/14/18 08:49 Dose: 25 mg Ondansetron HCl (Zofran Odt) 4 mg PO Q4H PRN PRN Reason: nausea, able to take PO Ondansetron HCl (Zofran) 4 mg IV Q4H PRN PRN Reason: Nausea/Vomiting Polyethylene Glycol (Miralax) 17 gm PO DAILY PRN PRN Reason: Constipation Potassium Chloride (Klor-Con M20) 40 meq PO BID [facility] Saccharomyces Boulardii (Florastor) 250 mg PO BID [facility] Last Admin: 10/14/18 08:45 Dose: 250 mg Senna/Docusate Sodium (Senna Plus) 1 tab PO BID PRN PRN Reason: Constipation Simvastatin (Zocor) 10 mg PO BEDTIME [facility] Last Admin: 10/13/18 21:53 Dose: 10 mg Temazepam (Restoril) 7.5 mg PO BEDTIME PRN PRN Reason: Sleep Vancomycin HCl (Pharmacy To Dose - Vancomycin) 0 dose .XX ASDIRECTED PRN PRN Reason: RX TO DOSE VANCOMYCIN Warfarin Sodium (Pharmacy To Dose - Warfarin) 0 dose .XX ASDIRECTED PRN PRN Reason: RX TO DOSE WARFARIN Warfarin Sodium (Coumadin) 7.5 mg PO QPM [facility] Stop: 10/14/18 21:00 Discontinued Medications Acetaminophen (Tylenol) 650 mg PO NOW ONE Stop: 10/13/18 14:53 Last Admin: 10/13/18 15:11 Dose: 650 mg Diltiazem HCl (Cardizem) 10 mg IVPUSH ONETIME ONE Stop: 10/13/18 16:24 Last Admin: 10/13/18 16:31 Dose: 10 mg Furosemide (Lasix) 40 mg IVPUSH NOW ONE Stop: 10/13/18 18:47 Last Admin: 10/13/18 19:06 Dose: 40 mg Hydromorphone HCl (Dilaudid) 0.25 mg IVPUSH Q2H PRN PRN Reason: Pain (severe 7-10) Sodium Chloride (Normal Saline) 1,000 mls @ 125 mls/hr IV ASDIRECTED [facility] Last Admin: 10/13/18 15:10 Dose: 125 mls/hr Sodium Chloride (Normal Saline) 1,000 mls @ 100 mls/hr IV ASDIRECTED [facility] Ceftriaxone Sodium 2 gm/ (Sodium Chloride) 100 mls @ 200 mls/hr IV Q24H [facility] Vancomycin HCl 1 gm/Vancomycin HCl 500 mg/ Sodium Chloride 500 mls @ 333.025 mls/hr IV Q24H [facility] Last Admin: 10/13/18 21:29 Dose: 333.025 mls/hr Influenza Virus Vaccine (Pharmacy To Dose - Influenza Vaccine) 1 each IM ONETIME ONE Stop: 10/13/18 22:50 Influenza Virus Vaccine (Fluzone High-Dose Syringe) 180 mcg IM .ONCE ONE Stop: 10/14/18 08:16 Iopamidol (Isovue-300 (61%)) 100 ml IVPUSH ONETIME ONE Stop: 10/13/18 17:24 Last Admin: 10/13/18 17:45 Dose: 100 ml Ketorolac Tromethamine (Toradol) 30 mg IV Q6H PRN PRN Reason: Pain (moderate 4-6) Ketorolac Tromethamine (Toradol) 30 mg IVPUSH ONETIME ONE Stop: 10/13/18 21:31 Last Admin: 10/13/18 21:41 Dose: 30 mg Ketorolac Tromethamine (Toradol) 15 mg IVPUSH Q6H PRN PRN Reason: Fever Lisinopril (Prinivil) 5 mg PO DAILY [facility] Last Admin: 10/14/18 08:46 Dose: 5 mg Magnesium Oxide (Magnesium Oxide) 400 mg PO ONETIME ONE Stop: 10/13/18 20:53 Last Admin: 10/13/18 21:52 Dose: 400 mg Metformin HCl (Glucophage) 1,000 mg PO BID [facility] Last Admin: 10/14/18 08:48 Dose: Not Given Metoclopramide HCl (Reglan) 10 mg IVPUSH ONETIME ONE Stop: 10/13/18 14:53 Last Admin: 10/13/18 15:08 Dose: 10 mg Metoclopramide HCl (Reglan) 7.5 mg IVPUSH ONETIME ONE Stop: 10/13/18 19:53 Last Admin: 10/13/18 20:05 Dose: 7.5 mg Warfarin Sodium (Coumadin) 5 mg PO ONETIME ONE Stop: 10/13/18 21:16 Last Admin: 10/13/18 21:52 Dose: 5 mg - Exam Quality Assessment: Supplemental Oxygen, DVT Prophylaxis General: Alert, Oriented, Cooperative, No Acute Distress HEENT: Pupils Equal, Pupils Reactive, EOMI Neck: Trachea Midline, No JVD Lungs: Normal Respiratory Effort Cardiovascular: Regular Rate, Irregular Rhythm GI/Abdominal Exam: Normal Bowel Sounds, Soft, Non-Tender, No Organomegaly, No Distention (Male) Exam: Deferred Back Exam: Normal Inspection Extremities: Normal Inspection, Non-Tender, Normal Capillary Refill, Pedal Edema (+2) Skin: Warm Neurological: No New Focal Deficit, Normal Speech Psy/Mental Status: Alert - Problem List Review Problem List Initiated/Reviewed/Updated: Yes - My Orders Last 24 Hours: My Active Orders 10/13/18 23:34 EKG 12 Lead [EK] Routine 10/14/18 09:00 Metoprolol Tartrate [Lopressor] 25 mg PO Q12H 10/14/18 09:49 EKG 12 Lead [EKG Documentation Completion] [RC] ROUTINE 10/14/18 09:50 EKG Documentation Completion [RC] ASDIRECTED 10/14/18 11:00 Vancomycin 1 gm Vancomycin 500 mg Sodium Chloride 0.9% [Normal Saline] 500 ml IV Q18H 10/14/18 12:11 FLORIN Bandage [Elastic Wrap] [OM.PC] Routine 10/14/18 12:18 METH-RESIST S.AUR,MRSA BY PCR [MOLEC] Routine 10/14/18 12:19 Incentive Spirometry [RT Incentive Spirometry] [RC] Q2HWA 10/14/18 12:23 Magnesium Sulfate/Water [Magnesium Sulfate 2 GM in Water 50 ML] 2 gm Premix Bag 1 bag IV ONETIME 10/14/18 12:24 Ketorolac [Toradol] 15 mg IVPUSH Q8H PRN 10/14/18 12:30 Potassium Chloride [Klor-Con M20] 40 meq PO BID 10/15/18 05:11 INR,PT,PROTHROMBIN TIME [COAG] AM 10/16/18 05:11 INR,PT,PROTHROMBIN TIME [COAG] AM 10/16/18 08:00 Echo Comp wo Cont [US] Routine 10/16/18 16:30 VANCOMYCIN TROUGH [CHEM] Timed 10/17/18 05:11 INR,PT,PROTHROMBIN TIME [COAG] AM 10/18/18 05:11 INR,PT,PROTHROMBIN TIME [COAG] AM 10/19/18 05:11 INR,PT,PROTHROMBIN TIME [COAG] AM - Plan Plan:: Assessment/Plan: Acute: Cellulitis bilateral LE * Entrance wounds on both legs * Risk factors: DM2, h/o cellulitis, Pedal edema (wears THIERNO hose at home, says he accidently scratched his legs) * CRP 15.2 * Sepsis Protocol * IVF, LA 1.8 , Blood cultures pending * Rocephin started in ED--> Continue * Add Vancomycin * Wound culture pending * PT consult for wound care * Avoid SCDs, THIERNO hose--> elevate LEs Elevated BNP, Query CHF * 1234 * Bilateral 1+ pitting edema * Risk factors: Afib, HTN, HLD, Heart Murmur, Aortic Valve replacement * ECHO pending * Heart Healthy Diet w/ 2L fluid restriction * Lasix drip; balance with renal function/IVF Atrial Fibrillation * Acute on Chronic * HR 120's in ED--> Cardizem given in ED * EKG in ED shows Afib, 115 bpm, T wave inversion in one aVL and V4-V6 w/ mild ST depression * Continue at home Cardizem 180mg Daily * Metoprolol PRN Hypoxic * Likely 2/2 above * 85% RA--> 91% on 2L NC * Monitor Subtherapeutic INR * Monitor * Pharmacy to dose Warfarin Hypomagnesemia * 1.5 * Monitor and Replenish Dehydration * AGap 16.8 * IVF Chronic: HTN on Lisinopril-->hold HLD on Pravastatin * Lipid panel pending Afib on Warfarin and Cardizem Heart murmur Aortic Valve replacement-->BC +4 bottles, await 2D echo; may need [facility] and transfer to [facility] [facility] w/ R sided weakness DM2 on metformin-->hold * Sliding scale insulin * Blood glucose checks QIDACBED * A1C pending R hip replacement (2014) Plan: Medical Floor w/ Telemetry Droplet precautions Routine AM Labs Heart Healthy/ADA diet DVT/GI prophylaxis: On Warfarin, Pepcid CM/SW PT/OT Code Status: Full Code; PCP: Dr. Weaver
[2018-10-14] MEDS: Potassium Chloride 20 MEQ Tab.ER PO SCH ×2 (12:40→21:29)
[2018-10-14] MEDS: Vancomycin 1500 MG in Sodium Chloride 0.9% 500 ML IV SCH ×3 (12:41)
--- NOTE | 2018-10-14 15:10 | CR ---
Chest: Portable view of the chest was obtained. Comparison: No prior chest x-ray is available. Heart size is normal. Tortuous thoracic aorta is seen. Previous sternotomy is noted. Prosthetic heart valve is seen. Lungs are clear without acute parenchymal change. Bony structures are grossly intact. Surgical clips are seen within the upper neck. Impression: 1. Incidental findings. Nothing acute is seen. Diagnostic code #2
[2018-10-14] MEDS: cefTRIAXone 2 GM in Sodium Chloride 0.9% 100 ML IV SCH (17:24)
[2018-10-14] MEDS ORDERED: Warfarin 7.5 MG Tab PO SCH (18:00)
[2018-10-14] MEDS: Furosemide 100 MG in Sodium Chloride 0.9% 90 ML IV SCH (21:16)
[2018-10-14] MEDS: Simvastatin 10 MG Tab PO SCH (21:26)
[2018-10-15] MEDS: Vancomycin 1500 MG in Sodium Chloride 0.9% 500 ML IV SCH ×3 (05:52)
[2018-10-15] MEDS: Sodium Chloride 0.9% 1,000 ML IV SCH (05:53)
[2018-10-15] MEDS: Insulin Lispro 100 UNIT/ML 10 ML VIAL SUBCUT SCH ×4 (07:35→22:04)
[2018-10-15] MEDS ORDERED: Carboxymethylcellulose Sodium 1% Ophth Gel 15 ML Bottle EYEBOTH PRN (08:09)
[2018-10-15] MEDS: Diltiazem 180 MG Cap.CD PO SCH (08:19)
[2018-10-15] MEDS: Saccharomyces Boulardii (Probiotic) 250 MG Cap PO SCH ×2 (08:19→21:13)
[2018-10-15] MEDS: Glimepiride 2 MG Tab PO SCH (08:20)
[2018-10-15] MEDS: Potassium Chloride 20 MEQ Tab.ER PO SCH ×2 (08:20→21:13)
[2018-10-15] MEDS: Metoprolol Tartrate 25 MG Tab PO SCH ×2 (08:21→21:21)
[2018-10-15] MEDS: Famotidine 20 MG Tab PO SCH ×2 (08:22→21:14)
[2018-10-15] MEDS: ceFAZolin 2 GM in Premix Bag 1 BAG IV SCH ×2 (11:37→19:12)
--- NOTE | 2018-10-15 13:10 | PCM.PN ---
- General Info Date of Service: 10/15/18 Subjective Update: Family meetings total--> two, discussed need for 2D echo and FRIDA with positive blood cultures. Patient has a bioprosthetic valve, will need transfer to [place] for FRIDA, and close follow up. However 2D echo will not be done until 10/16/18. Antibiotic changed prior to sensitivity to Ancef 2 gm Q 8 H for group B strep. Previous ATB, Vanco/Rocephin for 48 hours. Family meeting total time 30 minutes. Functional Status: Reports: Pain Controlled, Tolerating Diet, Ambulating, Urinating - Review of Systems General: Reports: Weakness (improved) HEENT: Reports: No Symptoms Pulmonary: Reports: No Symptoms Cardiovascular: Reports: No Symptoms Gastrointestinal: Reports: No Symptoms Genitourinary: Reports: No Symptoms Musculoskeletal: Reports: No Symptoms Skin: Reports: No Symptoms Neurological: Reports: No Symptoms Psychiatric: Reports: No Symptoms - Patient Data Vitals - Most Recent: Last Vital Signs Temp 37.2 C 10/15/18 11:20 Pulse 79 10/15/18 11:20 Resp 16 10/15/18 11:20 BP 120/76 10/15/18 11:20 Pulse Ox 93 L 10/15/18 11:20 Weight - Most Recent: 111.947 kg I&O - Last 24 Hours: Intake & Output 10/14/18 10/15/18 10/15/18 22:59 06:59 14:59 Intake Total 2300 1991 320 Output Total 1150 2650 1500 Balance 1150 659 -1180 Lab Results Last 24 Hours: Laboratory Results - last 24 hr 10/14/18 10/14/18 10/14/18 Range/Units 12:45 14:07 17:16 WBC (4.23-9.07) K/mm3 RBC (4.63-6.08) M/mm3 Hgb (13.7-17.5) gm/L Hct (40.1-51.0) % MCV (79.0-92.2) fl MCH (25.7-32.2) pg MCHC (32.2-35.5) g/dl RDW Std Deviation (35.1-43.9) fL Plt Count (163-337) K/mm3 MPV (9.4-12.3) fl Neut % (Auto) (34.0-67.9) % Lymph % (Auto) (21.8-53.1) % [place] % (Auto) (5.3-12.2) % Eos % (Auto) (0.8-7.0) Baso % (Auto) (0.1-1.2) % Neut # (Auto) (1.78-5.38) K/mm3 Lymph # (Auto) (1.32-3.57) K/mm3 Ellsworth # (Auto) (0.30-0.82) K/mm3 Eos # (Auto) (0.04-0.54) K/mm3 Baso # (Auto) (0.01-0.08) K/mm3 PT (9.5-12.1) SECONDS INR Sodium (136-145) mEq/L Potassium (3.5-5.1) mEq/L Chloride (98-107) mEq/L Carbon Dioxide (21-32) mEq/L Anion Gap (5-15) BUN (7-18) mg/dL Creatinine (0.7-1.3) mg/dL Est Cr Clr Drug Dosing mL/min Estimated GFR (MDRD) (>60) mL/min BUN/Creatinine Ratio (14-18) Glucose (83-115) mg/dL POC Glucose 189 H (83-110) mg/dL Lactic Acid 1.3 (0.4-2.0) mmol/L Calcium (8.5-10.1) mg/dL Magnesium (1.8-2.4) mg/dl C-Reactive Protein (<1.0) mg/dL NT-Pro-B Natriuret Pep (0-450) pg/mL MRSA (PCR) Negative 10/14/18 10/15/18 10/15/18 Range/Units 20:25 05:42 05:42 WBC 3.98 L (4.23-9.07) K/mm3 RBC 4.03 L (4.63-6.08) M/mm3 Hgb 11.9 L (13.7-17.5) gm/L Hct 35.8 L (40.1-51.0) % MCV 88.8 (79.0-92.2) fl MCH 29.5 (25.7-32.2) pg MCHC 33.2 (32.2-35.5) g/dl RDW Std Deviation 41.6 (35.1-43.9) fL Plt Count 119 L (163-337) K/mm3 MPV 9.5 (9.4-12.3) fl Neut % (Auto) 69.3 H (34.0-67.9) % Lymph % (Auto) 20.1 L (21.8-53.1) % Ellsworth % (Auto) 9.8 (5.3-12.2) % Eos % (Auto) 0.3 L (0.8-7.0) Baso % (Auto) 0.5 (0.1-1.2) % Neut # (Auto) 2.76 (1.78-5.38) K/mm3 Lymph # (Auto) 0.80 L (1.32-3.57) K/mm3 Ellsworth # (Auto) 0.39 (0.30-0.82) K/mm3 Eos # (Auto) 0.01 L (0.04-0.54) K/mm3 Baso # (Auto) 0.02 (0.01-0.08) K/mm3 PT (9.5-12.1) SECONDS INR Sodium 139 (136-145) mEq/L Potassium 3.2 L (3.5-5.1) mEq/L Chloride 105 (98-107) mEq/L Carbon Dioxide 25 (21-32) mEq/L Anion Gap 12.2 (5-15) BUN 25 H (7-18) mg/dL Creatinine 1.4 H (0.7-1.3) mg/dL Est Cr Clr Drug Dosing 46.35 mL/min Estimated GFR (MDRD) 49 (>60) mL/min BUN/Creatinine Ratio 17.9 (14-18) Glucose 100 (83-115) mg/dL POC Glucose 248 H (83-110) mg/dL Lactic Acid (0.4-2.0) mmol/L Calcium 8.4 L (8.5-10.1) mg/dL Magnesium 1.9 (1.8-2.4) mg/dl C-Reactive Protein 17.9 H* (<1.0) mg/dL NT-Pro-B Natriuret Pep (0-450) pg/mL MRSA (PCR) 10/15/18 10/15/1819 Range/Units 05:42 05:42 06:53 WBC (4.23-9.07) K/mm3 RBC (4.63-6.08) M/mm3 Hgb (13.7-17.5) gm/L Hct (40.1-51.0) % MCV (79.0-92.2) fl MCH (25.7-32.2) pg MCHC (32.2-35.5) g/dl RDW Std Deviation (35.1-43.9) fL Plt Count (163-337) K/mm3 MPV (9.4-12.3) fl Neut % (Auto) (34.0-67.9) % Lymph % (Auto) (21.8-53.1) % Ell[place] % (Auto) (5.3-12.2) % Eos % (Auto) (0.8-7.0) Baso % (Auto) (0.1-1.2) % Neut # (Auto) (1.78-5.38) K/mm3 Lymph # (Auto) (1.32-3.57) K/mm3 Ell[place] # (Auto) (0.30-0.82) K/mm3 Eos # (Auto) (0.04-0.54) K/mm3 Baso # (Auto) (0.01-0.08) K/mm3 PT 17.8 H (9.5-12.1) SECONDS INR 1.65 Sodium (136-145) mEq/L Potassium (3.5-5.1) mEq/L Chloride (98-107) mEq/L Carbon Dioxide (21-32) mEq/L Anion Gap (5-15) BUN (7-18) mg/dL Creatinine (0.7-1.3) mg/dL Est Cr Clr Drug Dosing mL/min Estimated GFR (MDRD) (>60) mL/min BUN/Creatinine Ratio (14-18) Glucose (83-115) mg/dL POC Glucose 123 H (83-110) mg/dL Lactic Acid (0.4-2.0) mmol/L Calcium (8.5-10.1) mg/dL Magnesium (1.8-2.4) mg/dl C-Reactive Protein (<1.0) mg/dL NT-Pro-B Natriuret Pep 992 H (0-450) pg/mL MRSA (PCR) 10/15/18 Range/Units 10:58 WBC (4.23-9.07) K/mm3 RBC (4.63-6.08) M/mm3 Hgb (13.7-17.5) gm/L Hct (40.1-51.0) % MCV (79.0-92.2) fl MCH (25.7-32.2) pg MCHC (32.2-35.5) g/dl RDW Std Deviation (35.1-43.9) fL Plt Count (163-337) K/mm3 MPV (9.4-12.3) fl Neut % (Auto) (34.0-67.9) % Lymph % (Auto) (21.8-53.1) % Ell[place] % (Auto) (5.3-12.2) % Eos % (Auto) (0.8-7.0) Baso % (Auto) (0.1-1.2) % Neut # (Auto) (1.78-5.38) K/mm3 Lymph # (Auto) (1.32-3.57) K/mm3 Ell[place] # (Auto) (0.30-0.82) K/mm3 Eos # (Auto) (0.04-0.54) K/mm3 Baso # (Auto) (0.01-0.08) K/mm3 PT (9.5-12.1) SECONDS INR Sodium (136-145) mEq/L Potassium (3.5-5.1) mEq/L Chloride (98-107) mEq/L Carbon Dioxide (21-32) mEq/L Anion Gap (5-15) BUN (7-18) mg/dL Creatinine (0.7-1.3) mg/dL Est Cr Clr Drug Dosing mL/min Estimated GFR (MDRD) (>60) mL/min BUN/Creatinine Ratio (14-18) Glucose (83-115) mg/dL POC Glucose 180 H (83-110) mg/dL Lactic Acid (0.4-2.0) mmol/L Calcium (8.5-10.1) mg/dL Magnesium (1.8-2.4) mg/dl C-Reactive Protein (<1.0) mg/dL NT-Pro-B Natriuret Pep (0-450) pg/mL MRSA (PCR) Brendan Results Last 24 Hours: Microbiology 10/13/18 15:29 Aerobic Blood Culture - Final Blood - Venous Beta Streptococcus Group B Anaerobic Blood Culture - Preliminary Beta Streptococcus Group B 10/13/18 15:41 Aerobic Blood Culture - Final Blood - Venous - Lab Draw Beta Streptococcus Group B Anaerobic Blood Culture - Preliminary Beta Streptococcus Group B Med Orders - Current: Current Medications Acetaminophen (Tylenol) 650 mg PO Q4H PRN PRN Reason: Pain (Mild 1-3)/fever Last Admin: 10/14/18 14:53 Dose: 650 mg Albuterol (Proventil Neb Soln) 2.5 mg NEB Q2H PRN PRN Reason: Shortness Of Breath/wheezing Albuterol/Ipratropium (Duoneb 3.0-0.5 Mg/3 Ml) 3 ml NEB Q4H PRN PRN Reason: Shortness Of Breath/wheezing Artificial Tears (Refresh Liquigel 1%) 0 ml EYEBOTH Q2H PRN PRN Reason: Dry Eyes Last Admin: 10/15/18 08:18 Dose: 1 drop Bisacodyl (Dulcolax) 5 mg PO DAILY PRN PRN Reason: Constipation Dextrose/Water (Dextrose 50% In Water) 50 ml IVPUSH ASDIRECTED PRN PRN Reason: Hypoglycemia Diltiazem HCl (Cardizem Cd) 180 mg PO DAILY [facility] Last Admin: 10/15/18 08:19 Dose: 180 mg Docusate Sodium (Colace) 100 mg PO BID PRN PRN Reason: Constipation Famotidine (Pepcid) 20 mg PO BID [facility] Last Admin: 10/15/18 08:22 Dose: 20 mg Glimepiride (Amaryl) 4 mg PO DAILY [facility] Last Admin: 10/15/18 08:20 Dose: 4 mg Furosemide 100 mg/ Sodium (Chloride) 100 mls @ 4 mls/hr IV TITRATE [facility] Last Admin: 10/14/18 21:16 Dose: 4 mg/hr, 4 mls/hr Cefazolin Sodium/Dextrose 2 gm (/ Premix) 50 mls @ 100 mls/hr IV Q8H [facility] Last Admin: 10/15/18 11:37 Dose: 100 mls/hr Magnesium Sulfate 2 gm/ Premix 50 mls @ 25 mls/hr IV Q1H [facility] Stop: 10/15/18 15:14 Insulin Human Lispro (Humalog) 0 unit SUBCUT QIDACANDBED [facility]; Protocol Last Admin: 10/15/18 11:38 Dose: 2 units Ketorolac Tromethamine (Toradol) 15 mg IVPUSH Q8H PRN PRN Reason: Pain/Fever Magnesium Hydroxide (Milk Of Magnesia) 30 ml PO Q12H PRN PRN Reason: Constipation Metoprolol Tartrate (Lopressor) 5 mg IVPUSH Q4H PRN PRN Reason: Tachycardia Metoprolol Tartrate (Lopressor) 25 mg PO Q12H [facility] Last Admin: 10/15/18 08:21 Dose: Not Given Ondansetron HCl (Zofran Odt) 4 mg PO Q4H PRN PRN Reason: nausea, able to take PO Ondansetron HCl (Zofran) 4 mg IV Q4H PRN PRN Reason: Nausea/Vomiting Polyethylene Glycol (Miralax) 17 gm PO DAILY PRN PRN Reason: Constipation Potassium Chloride (Klor-Con M20) 40 meq PO BID [facility] Stop: 10/15/18 21:01 Last Admin: 10/15/18 08:20 Dose: 40 meq Saccharomyces Boulardii (Florastor) 250 mg PO BID [facility] Last Admin: 10/15/18 08:19 Dose: 250 mg Senna/Docusate Sodium (Senna Plus) 1 tab PO BID PRN PRN Reason: Constipation Simvastatin (Zocor) 10 mg PO BEDTIME [facility] Last Admin: 10/14/18 21:26 Dose: 10 mg Temazepam (Restoril) 7.5 mg PO BEDTIME PRN PRN Reason: Sleep Warfarin Sodium (Pharmacy To Dose - Warfarin) 0 dose .XX ASDIRECTED PRN PRN Reason: RX TO DOSE WARFARIN Warfarin Sodium (Coumadin) 7.5 mg PO QPM [facility] Stop: 10/15/18 21:00 Discontinued Medications Acetaminophen (Tylenol) 650 mg PO NOW ONE Stop: 10/13/18 14:53 Last Admin: 10/13/18 15:11 Dose: 650 mg Diltiazem HCl (Cardizem) 10 mg IVPUSH ONETIME ONE Stop: 10/13/18 16:24 Last Admin: 10/13/18 16:31 Dose: 10 mg Furosemide (Lasix) 40 mg IVPUSH NOW ONE Stop: 10/13/18 18:47 Last Admin: 10/13/18 19:06 Dose: 40 mg Hydromorphone HCl (Dilaudid) 0.25 mg IVPUSH Q2H PRN PRN Reason: Pain (severe 7-10) Sodium Chloride (Normal Saline) 1,000 mls @ 125 mls/hr IV ASDIRECTED [facility] Last Admin: 10/13/18 15:10 Dose: 125 mls/hr Ceftriaxone Sodium 2 gm/ (Sodium Chloride) 100 mls @ 200 mls/hr IV Q24H [facility] Last Admin: 10/14/18 17:24 Dose: 200 mls/hr Sodium Chloride (Normal Saline) 1,000 mls @ 100 mls/hr IV ASDIRECTED [facility] Ceftriaxone Sodium 2 gm/ (Sodium Chloride) 100 mls @ 200 mls/hr IV Q24H [facility] Sodium Chloride (Normal Saline) 1,000 mls @ 100 mls/hr IV ASDIRECTED [facility] Last Admin: 10/15/18 05:53 Dose: 100 mls/hr Vancomycin HCl 1 gm/Vancomycin HCl 500 mg/ Sodium Chloride 500 mls @ 333.025 mls/hr IV Q24H [facility] Last Admin: 10/13/18 21:29 Dose: 333.025 mls/hr Vancomycin HCl 1 gm/Vancomycin HCl 500 mg/ Sodium Chloride 500 mls @ 333.025 mls/hr IV Q18H [facility] Last Admin: 10/15/18 05:52 Dose: 333.025 mls/hr Magnesium Sulfate 2 gm/ Premix 50 mls @ 25 mls/hr IV ONETIME ONE Stop: 10/14/18 14:22 Last Admin: 10/14/18 14:27 Dose: 25 mls/hr Influenza Virus Vaccine (Pharmacy To Dose - Influenza Vaccine) 1 each IM ONETIME ONE Stop: 10/13/18 22:50 Influenza Virus Vaccine (Fluzone High-Dose Syringe) 180 mcg IM .ONCE ONE Stop: 10/14/18 08:16 Iopamidol (Isovue-300 (61%)) 100 ml IVPUSH ONETIME ONE Stop: 10/13/18 17:24 Last Admin: 10/13/18 17:45 Dose: 100 ml Ketorolac Tromethamine (Toradol) 30 mg IV Q6H PRN PRN Reason: Pain (moderate 4-6) Ketorolac Tromethamine (Toradol) 30 mg IVPUSH ONETIME ONE Stop: 10/13/18 21:31 Last Admin: 10/13/18 21:41 Dose: 30 mg Ketorolac Tromethamine (Toradol) 15 mg IVPUSH Q6H PRN PRN Reason: Fever Lisinopril (Prinivil) 5 mg PO DAILY [facility] Last Admin: 10/14/18 08:46 Dose: 5 mg Magnesium Oxide (Magnesium Oxide) 400 mg PO ONETIME ONE Stop: 10/13/18 20:53 Last Admin: 10/13/18 21:52 Dose: 400 mg Metformin HCl (Glucophage) 1,000 mg PO BID [facility] Last Admin: 10/14/18 08:48 Dose: Not Given Metoclopramide HCl (Reglan) 10 mg IVPUSH ONETIME ONE Stop: 10/13/18 14:53 Last Admin: 10/13/18 15:08 Dose: 10 mg Metoclopramide HCl (Reglan) 7.5 mg IVPUSH ONETIME ONE Stop: 10/13/18 19:53 Last Admin: 10/13/18 20:05 Dose: 7.5 mg Vancomycin HCl (Pharmacy To Dose - Vancomycin) 0 dose .XX ASDIRECTED PRN PRN Reason: RX TO DOSE VANCOMYCIN Warfarin Sodium (Coumadin) 5 mg PO ONETIME ONE Stop: 10/13/18 21:16 Last Admin: 10/13/18 21:52 Dose: 5 mg Warfarin Sodium (Coumadin) 7.5 mg PO QPM [facility] Stop: 10/14/18 21:00 Last Admin: 10/14/18 17:27 Dose: 7.5 mg - Exam Quality Assessment: Supplemental Oxygen, DVT Prophylaxis General: Alert, Oriented, Cooperative, No Acute Distress HEENT: Pupils Equal, Pupils Reactive, EOMI Neck: Trachea Midline, No JVD Lungs: Normal Respiratory Effort Cardiovascular: Regular Rate GI/Abdominal Exam: Normal Bowel Sounds, Soft, Non-Tender, No Organomegaly, No Distention (Male) Exam: Deferred Back Exam: Normal Inspection Extremities: Normal Inspection, Non-Tender, Normal Capillary Refill Skin: Warm Neurological: No New Focal Deficit, Normal Gait, Normal Speech Psy/Mental Status: Alert, Normal Affect, Normal Mood - Problem List Review Problem List Initiated/Reviewed/Updated: Yes - My Orders Last 24 Hours: My Active Orders 10/14/18 12:11 FLORIN Bandage [Elastic Wrap] [OM.PC] Routine 10/14/18 12:19 Incentive Spirometry [RT Incentive Spirometry] [RC] Q2HWA 10/14/18 12:24 Ketorolac [Toradol] 15 mg IVPUSH Q8H PRN 10/14/18 12:30 Potassium Chloride [Klor-Con M20] 40 meq PO BID 10/15/18 08:09 Carboxymethylcellulose Sodium [Refresh Liquigel 1%] 0 ml EYEBOTH Q2H PRN 10/15/18 11:00 ceFAZolin [Ancef] 2 gm Premix Bag 1 bag IV Q8H 10/15/18 13:15 Magnesium Sulfate/Water [Magnesium Sulfate 2 GM in Water 50 ML] 2 gm Premix Bag 1 bag IV Q1H 10/15/18 18:00 CBC WITH AUTO DIFF [HEME] Routine 10/16/18 05:00 CULTURE BLOOD [BC] Routine 10/16/18 05:11 INR,PT,PROTHROMBIN TIME [COAG] AM 10/16/18 08:00 Echo Comp wo Cont [US] Routine 10/17/18 05:11 INR,PT,PROTHROMBIN TIME [COAG] AM 10/18/18 05:11 INR,PT,PROTHROMBIN TIME [COAG] AM 10/19/18 05:11 INR,PT,PROTHROMBIN TIME [COAG] AM - Plan Plan:: Assessment/Plan: Acute: Cellulitis bilateral LE * Entrance wounds on both legs * Risk factors: DM2, h/o cellulitis, Pedal edema (wears THIERNO hose at home, says he accidently scratched his legs) * CRP 15.2 * Sepsis Protocol * IVF, LA 1.8 , Blood cultures pending * Rocephin started in ED--> Continue * Add Vancomycin--stopped * Wound culture pending * PT consult for wound care * Avoid SCDs, THIERNO hose--> elevate LEs Bacteremia__>Group B strep, changed ATB to Ancef 2 gm Q 8H Elevated BNP, Query CHF * 1234 * Bilateral 1+ pitting edema-->improving * Risk factors: Afib, HTN, HLD, Heart Murmur, Aortic Valve replacement * ECHO pending * Heart Healthy Diet w/ 2L fluid restriction * Lasix drip; balance with renal function/IVF Atrial Fibrillation * Acute on Chronic * HR 120's in ED--> Cardizem given in ED * EKG in ED shows Afib, 115 bpm, T wave inversion in one aVL and V4-V6 w/ mild ST depression * Continue at home Cardizem 180mg Daily * Metoprolol PRN Hypoxic * Likely 2/2 above * 85% RA--> 91% on 2L NC * Monitor Subtherapeutic INR * Monitor * Pharmacy to dose Warfarin Hypomagnesemia * 1.5 * Monitor and Replenish Dehydration * AGap 16.8 * IVF Chronic: HTN on Lisinopril-->hold HLD on Pravastatin * Lipid panel pending Afib on Warfarin and Cardizem Heart murmur Aortic Valve replacement-->BC +4 bottles, await 2D echo; may need FRIDA and transfer to [facility] w/ R sided weakness DM2 on metformin-->hold * Sliding scale insulin * Blood glucose checks QIDACBED * A1C pending R hip replacement (2014) Plan: Medical Floor w/ Telemetry Droplet precautions Routine AM Labs Heart Healthy/ADA diet DVT/GI prophylaxis: On Warfarin, Pepcid CM/SW PT/OT Code Status: Full Code; PCP: Dr. Weaver LOS>96 hours with slow response to therapy.
[2018-10-15] MEDS ORDERED: Magnesium Sulfate/Water 2 GM in Premix Bag 1 BAG IV ONE ×2 (13:15→15:15)
[2018-10-15] MEDS ORDERED: Benzocaine/Cetylpyridinium/Menthol Lozenge MUCMEM PRN (13:18)
[2018-10-15] MEDS: Potassium Chloride 10 MEQ in Premix Bag 1 BAG IV SCH ×2 (13:28→14:59)
[2018-10-15] MEDS ORDERED: Warfarin 7.5 MG Tab PO SCH (18:00)
[2018-10-15] MEDS: Furosemide 100 MG in Sodium Chloride 0.9% 90 ML IV SCH (19:59)
[2018-10-15] MEDS: Simvastatin 10 MG Tab PO SCH (21:14)
[2018-10-16] MEDS: ceFAZolin 2 GM in Premix Bag 1 BAG IV SCH ×3 (03:56→18:11)
[2018-10-16] MEDS: Magnesium Hydroxide 400 MG/5 ML Susp 30 ML Cup PO PRN ×2 (06:55→17:22)
[2018-10-16] MEDS: Insulin Lispro 100 UNIT/ML 10 ML VIAL SUBCUT SCH ×4 (08:09→22:25)
[2018-10-16] MEDS: Saccharomyces Boulardii (Probiotic) 250 MG Cap PO SCH ×2 (08:10→20:50)
[2018-10-16] MEDS: Glimepiride 2 MG Tab PO SCH (08:10)
[2018-10-16] MEDS: Diltiazem 180 MG Cap.CD PO SCH (08:10)
[2018-10-16] MEDS: Famotidine 20 MG Tab PO SCH ×2 (08:10→20:50)
[2018-10-16] MEDS: Metoprolol Tartrate 25 MG Tab PO SCH ×2 (08:11→20:50)
--- NOTE | 2018-10-16 14:58 | PCM.PN ---
<Pattie Castillo - Last Filed: 10/16/18 19:58> - General Info Date of Service: 10/16/18 Admission Dx/Problem (Free Text): Admission Diagnosis/Problem Admission Diagnosis/Problem Cellulitis Subjective Update: In to see Trung. He is sitting up in bed visiting with his . No current complaints, is feeling much better. No longer on O2. Updated him that we still need to await repeat blood cultures and ECHO d/t his heart valve history. He and his understand. All questions and concerns answered. No concerns from nursing. 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 Functional Status: Reports: Pain Controlled, Tolerating Diet, Ambulating, Urinating - Review of Systems General: Reports: No Symptoms. Denies: Fever, Chills HEENT: Reports: No Symptoms Pulmonary: Reports: No Symptoms. Denies: Shortness of Breath, Cough Cardiovascular: Reports: No Symptoms. Denies: Chest Pain Gastrointestinal: Reports: No Symptoms. Denies: Abdominal Pain, Diarrhea, Nausea, Vomiting Genitourinary: Reports: No Symptoms Musculoskeletal: Reports: Leg Pain, Joint Pain (chronic s/p R hip repair 2014) Skin: Reports: No Symptoms Neurological: Reports: No Symptoms. Denies: Confusion Psychiatric: Reports: No Symptoms. Denies: Confusion - Patient Data Vitals - Most Recent: Last Vital Signs Temp 97.5 F 10/16/18 07:21 Pulse 77 10/16/18 08:11 Resp 16 10/16/18 07:21 BP 112/78 10/16/18 12:23 Pulse Ox 97 10/16/18 07:21 Weight - Most Recent: 110.949 kg I&O - Last 24 Hours: Intake & Output 10/15/18 10/16/18 10/16/18 22:59 06:59 14:59 Intake Total 2669 236 300 Output Total 2250 2300 550 Balance 979 -1876 -255 Lab Results Last 24 Hours: Laboratory Results - last 24 hr 10/15/18 10/15/18 10/15/18 Range/Units 16:50 18:00 21:48 WBC 3.81 L (4.23-9.07) K/mm3 RBC 4.33 L (4.63-6.08) M/mm3 Hgb 12.8 L (13.7-17.5) gm/L Hct 38.3 L (40.1-51.0) % MCV 88.5 (79.0-92.2) fl MCH 29.6 (25.7-32.2) pg MCHC 33.4 (32.2-35.5) g/dl RDW Std Deviation 41.9 (35.1-43.9) fL Plt Count 126 L (163-337) K/mm3 MPV 9.4 (9.4-12.3) fl Neut % (Auto) 57.2 (34.0-67.9) % Lymph % (Auto) 28.9 (21.8-53.1) % Ballard % (Auto) 12.3 H (5.3-12.2) % Eos % (Auto) 1.3 (0.8-7.0) Baso % (Auto) 0.3 (0.1-1.2) % Neut # (Auto) 2.18 (1.78-5.38) K/mm3 Lymph # (Auto) 1.10 L (1.32-3.57) K/mm3 Ballard # (Auto) 0.47 (0.30-0.82) K/mm3 Eos # (Auto) 0.05 (0.04-0.54) K/mm3 Baso # (Auto) 0.01 (0.01-0.08) K/mm3 Manual Slide Review PT (9.5-12.1) SECONDS INR Sodium (136-145) mEq/L Potassium (3.5-5.1) mEq/L Chloride (98-107) mEq/L Carbon Dioxide (21-32) mEq/L Anion Gap (5-15) BUN (7-18) mg/dL Creatinine (0.7-1.3) mg/dL Est Cr Clr Drug Dosing mL/min Estimated GFR (MDRD) (>60) mL/min BUN/Creatinine Ratio (14-18) Glucose (83-115) mg/dL POC Glucose 177 H 237 H (83-110) mg/dL Calcium (8.5-10.1) mg/dL Magnesium (1.8-2.4) mg/dl C-Reactive Protein (<1.0) mg/dL NT-Pro-B Natriuret Pep (0-450) pg/mL 10/16/18 10/16/18 10/16/18 Range/Units 06:01 06:04 06:04 WBC 4.25 (4.23-9.07) K/mm3 RBC 4.33 L (4.63-6.08) M/mm3 Hgb 12.7 L (13.7-17.5) gm/L Hct 38.0 L (40.1-51.0) % MCV 87.8 (79.0-92.2) fl MCH 29.3 (25.7-32.2) pg MCHC 33.4 (32.2-35.5) g/dl RDW Std Deviation 41.4 (35.1-43.9) fL Plt Count 138 L (163-337) K/mm3 MPV 9.6 (9.4-12.3) fl Neut % (Auto) 58.4 (34.0-67.9) % Lymph % (Auto) 23.5 (21.8-53.1) % Ballard % (Auto) 15.5 H (5.3-12.2) % Eos % (Auto) 1.9 (0.8-7.0) Baso % (Auto) 0.5 (0.1-1.2) % Neut # (Auto) 2.48 (1.78-5.38) K/mm3 Lymph # (Auto) 1.00 L (1.32-3.57) K/mm3 Ballard # (Auto) 0.66 (0.30-0.82) K/mm3 Eos # (Auto) 0.08 (0.04-0.54) K/mm3 Baso # (Auto) 0.02 (0.01-0.08) K/mm3 Manual Slide Review Abnormal smear PT (9.5-12.1) SECONDS INR Sodium 139 (136-145) mEq/L Potassium 3.4 L (3.5-5.1) mEq/L Chloride 104 (98-107) mEq/L Carbon Dioxide 24 (21-32) mEq/L Anion Gap 14.4 (5-15) BUN 23 H (7-18) mg/dL Creatinine 1.3 (0.7-1.3) mg/dL Est Cr Clr Drug Dosing 49.91 mL/min Estimated GFR (MDRD) 54 (>60) mL/min BUN/Creatinine Ratio 17.7 (14-18) Glucose 166 H (83-115) mg/dL POC Glucose 162 H (83-110) mg/dL Calcium 8.8 (8.5-10.1) mg/dL Magnesium 2.0 (1.8-2.4) mg/dl C-Reactive Protein 12.1 H* (<1.0) mg/dL NT-Pro-B Natriuret Pep (0-450) pg/mL 10/16/18 10/16/18 10/16/18 Range/Units 06:04 06:04 11:00 WBC (4.23-9.07) K/mm3 RBC (4.63-6.08) M/mm3 Hgb (13.7-17.5) gm/L Hct (40.1-51.0) % MCV (79.0-92.2) fl MCH (25.7-32.2) pg MCHC (32.2-35.5) g/dl RDW Std Deviation (35.1-43.9) fL Plt Count (163-337) K/mm3 MPV (9.4-12.3) fl Neut % (Auto) (34.0-67.9) % Lymph % (Auto) (21.8-53.1) % Ballard % (Auto) (5.3-12.2) % Eos % (Auto) (0.8-7.0) Baso % (Auto) (0.1-1.2) % Neut # (Auto) (1.78-5.38) K/mm3 Lymph # (Auto) (1.32-3.57) K/mm3 Ballard # (Auto) (0.30-0.82) K/mm3 Eos # (Auto) (0.04-0.54) K/mm3 Baso # (Auto) (0.01-0.08) K/mm3 Manual Slide Review PT 18.6 H (9.5-12.1) SECONDS INR 1.72 Sodium (136-145) mEq/L Potassium (3.5-5.1) mEq/L Chloride (98-107) mEq/L Carbon Dioxide (21-32) mEq/L Anion Gap (5-15) BUN (7-18) mg/dL Creatinine (0.7-1.3) mg/dL Est Cr Clr Drug Dosing mL/min Estimated GFR (MDRD) (>60) mL/min BUN/Creatinine Ratio (14-18) Glucose (83-115) mg/dL POC Glucose 275 H (83-110) mg/dL Calcium (8.5-10.1) mg/dL Magnesium (1.8-2.4) mg/dl C-Reactive Protein (<1.0) mg/dL NT-Pro-B Natriuret Pep 593 H (0-450) pg/mL Brendan Results Last 24 Hours: Microbiology 10/13/18 15:41 Aerobic Blood Culture - Final Blood - Venous - Lab Draw Beta Streptococcus Group B Anaerobic Blood Culture - Final Beta Streptococcus Group B 10/13/18 15:29 Aerobic Blood Culture - Final Blood - Venous Beta Streptococcus Group B Anaerobic Blood Culture - Final Beta Streptococcus Group B 10/15/18 13:25 Quick Strep Confirmation Culture - Preliminary Throat Group A Streptococcus Rapid Screen - Final NEGATIVE STREP A SCREEN Med Orders - Current: Current Medications Acetaminophen (Tylenol) 650 mg PO Q4H PRN PRN Reason: Pain (Mild 1-3)/fever Last Admin: 10/14/18 14:53 Dose: 650 mg Albuterol (Proventil Neb Soln) 2.5 mg NEB Q2H PRN PRN Reason: Shortness Of Breath/wheezing Albuterol/Ipratropium (Duoneb 3.0-0.5 Mg/3 Ml) 3 ml NEB Q4H PRN PRN Reason: Shortness Of Breath/wheezing Artificial Tears (Refresh Liquigel 1%) 0 ml EYEBOTH Q2H PRN PRN Reason: Dry Eyes Last Admin: 10/15/18 08:18 Dose: 1 drop Benzocaine/Menthol (Cepacol Sore Throat) 1 lozenge MUCMEM Q2H PRN PRN Reason: Sore Throat Bisacodyl (Dulcolax) 5 mg PO DAILY PRN PRN Reason: Constipation Dextrose/Water (Dextrose 50% In Water) 50 ml IVPUSH ASDIRECTED PRN PRN Reason: Hypoglycemia Diltiazem HCl (Cardizem Cd) 180 mg PO DAILY FABIENNE Last Admin: 10/16/18 08:10 Dose: 180 mg Docusate Sodium (Colace) 100 mg PO BID PRN PRN Reason: Constipation Famotidine (Pepcid) 20 mg PO BID [facility] Last Admin: 10/16/18 08:10 Dose: 20 mg Glimepiride (Amaryl) 4 mg PO DAILY [facility] Last Admin: 10/16/18 08:10 Dose: 4 mg Cefazolin Sodium/Dextrose 2 gm (/ Premix) 50 mls @ 100 mls/hr IV Q8H [facility] Last Admin: 10/16/18 12:30 Dose: 100 mls/hr Insulin Human Lispro (Humalog) 0 unit SUBCUT QIDACANDBED [facility]; Protocol Last Admin: 10/16/18 12:32 Dose: 6 units Ketorolac Tromethamine (Toradol) 15 mg IVPUSH Q8H PRN PRN Reason: Pain/Fever Magnesium Hydroxide (Milk Of Magnesia) 30 ml PO Q12H PRN PRN Reason: Constipation Last Admin: 10/16/18 06:55 Dose: 30 ml Metoprolol Tartrate (Lopressor) 5 mg IVPUSH Q4H PRN PRN Reason: Tachycardia Metoprolol Tartrate (Lopressor) 25 mg PO Q12H [facility] Last Admin: 10/16/18 08:11 Dose: Not Given Ondansetron HCl (Zofran Odt) 4 mg PO Q4H PRN PRN Reason: nausea, able to take PO Ondansetron HCl (Zofran) 4 mg IV Q4H PRN PRN Reason: Nausea/Vomiting Polyethylene Glycol (Miralax) 17 gm PO DAILY PRN PRN Reason: Constipation Saccharomyces Boulardii (Florastor) 250 mg PO BID [facility] Last Admin: 10/16/18 08:10 Dose: 250 mg Senna/Docusate Sodium (Senna Plus) 1 tab PO BID PRN PRN Reason: Constipation Simvastatin (Zocor) 10 mg PO BEDTIME [facility] Last Admin: 10/15/18 21:14 Dose: 10 mg Temazepam (Restoril) 7.5 mg PO BEDTIME PRN PRN Reason: Sleep Warfarin Sodium (Pharmacy To Dose - Warfarin) 0 dose .XX ASDIRECTED PRN PRN Reason: RX TO DOSE WARFARIN Warfarin Sodium (Coumadin) 7.5 mg PO QPM [facility] Stop: 10/16/18 18:01 Discontinued Medications Acetaminophen (Tylenol) 650 mg PO NOW ONE Stop: 10/13/18 14:53 Last Admin: 10/13/18 15:11 Dose: 650 mg Diltiazem HCl (Cardizem) 10 mg IVPUSH ONETIME ONE Stop: 10/13/18 16:24 Last Admin: 10/13/18 16:31 Dose: 10 mg Furosemide (Lasix) 40 mg IVPUSH NOW ONE Stop: 10/13/18 18:47 Last Admin: 10/13/18 19:06 Dose: 40 mg Hydromorphone HCl (Dilaudid) 0.25 mg IVPUSH Q2H PRN PRN Reason: Pain (severe 7-10) Sodium Chloride (Normal Saline) 1,000 mls @ 125 mls/hr IV ASDIRECTED [facility] Last Admin: 10/13/18 15:10 Dose: 125 mls/hr Ceftriaxone Sodium 2 gm/ (Sodium Chloride) 100 mls @ 200 mls/hr IV Q24H [facility] Last Admin: 10/14/18 17:24 Dose: 200 mls/hr Sodium Chloride (Normal Saline) 1,000 mls @ 100 mls/hr IV ASDIRECTED [facility] Furosemide 100 mg/ Sodium (Chloride) 100 mls @ 4 mls/hr IV TITRATE [facility] Stop: 10/16/18 05:00 Last Admin: 10/15/18 19:59 Dose: 4 mg/hr, 4 mls/hr Ceftriaxone Sodium 2 gm/ (Sodium Chloride) 100 mls @ 200 mls/hr IV Q24H [facility] Sodium Chloride (Normal Saline) 1,000 mls @ 100 mls/hr IV ASDIRECTED [facility] Last Admin: 10/15/18 05:53 Dose: 100 mls/hr Vancomycin HCl 1 gm/Vancomycin HCl 500 mg/ Sodium Chloride 500 mls @ 333.025 mls/hr IV Q24H [facility] Last Admin: 10/13/18 21:29 Dose: 333.025 mls/hr Vancomycin HCl 1 gm/Vancomycin HCl 500 mg/ Sodium Chloride 500 mls @ 333.025 mls/hr IV Q18H [facility] Last Admin: 10/15/18 05:52 Dose: 333.025 mls/hr Magnesium Sulfate 2 gm/ Premix 50 mls @ 25 mls/hr IV ONETIME ONE Stop: 10/14/18 14:22 Last Admin: 10/14/18 14:27 Dose: 25 mls/hr Magnesium Sulfate 2 gm/ Premix 50 mls @ 25 mls/hr IV ASDIRECTED ONE Stop: 10/15/18 15:14 Potassium Chloride 10 meq/ (Premix) 100 mls @ 100 mls/hr IV Q1H [facility] Stop: 10/15/18 15:14 Last Admin: 10/15/18 14:59 Dose: 100 mls/hr Magnesium Sulfate 2 gm/ Premix 50 mls @ 25 mls/hr IV ASDIRECTED ONE Stop: 10/15/18 17:14 Last Admin: 10/15/18 16:53 Dose: 25 mls/hr Influenza Virus Vaccine (Pharmacy To Dose - Influenza Vaccine) 1 each IM ONETIME ONE Stop: 10/13/18 22:50 Influenza Virus Vaccine (Fluzone High-Dose Syringe) 180 mcg IM .ONCE ONE Stop: 10/14/18 08:16 Iopamidol (Isovue-300 (61%)) 100 ml IVPUSH ONETIME ONE Stop: 10/13/18 17:24 Last Admin: 10/13/18 17:45 Dose: 100 ml Ketorolac Tromethamine (Toradol) 30 mg IV Q6H PRN PRN Reason: Pain (moderate 4-6) Ketorolac Tromethamine (Toradol) 30 mg IVPUSH ONETIME ONE Stop: 10/13/18 21:31 Last Admin: 10/13/18 21:41 Dose: 30 mg Ketorolac Tromethamine (Toradol) 15 mg IVPUSH Q6H PRN PRN Reason: Fever Lisinopril (Prinivil) 5 mg PO DAILY [facility] Last Admin: 10/14/18 08:46 Dose: 5 mg Magnesium Oxide (Magnesium Oxide) 400 mg PO ONETIME ONE Stop: 10/13/18 20:53 Last Admin: 10/13/18 21:52 Dose: 400 mg Metformin HCl (Glucophage) 1,000 mg PO BID [facility] Last Admin: 10/14/18 08:48 Dose: Not Given Metoclopramide HCl (Reglan) 10 mg IVPUSH ONETIME ONE Stop: 10/13/18 14:53 Last Admin: 10/13/18 15:08 Dose: 10 mg Metoclopramide HCl (Reglan) 7.5 mg IVPUSH ONETIME ONE Stop: 10/13/18 19:53 Last Admin: 10/13/18 20:05 Dose: 7.5 mg Potassium Chloride (Klor-Con M20) 40 meq PO BID [facility] Stop: 10/15/18 21:01 Last Admin: 10/15/18 21:13 Dose: 40 meq Vancomycin HCl (Pharmacy To Dose - Vancomycin) 0 dose .XX ASDIRECTED PRN PRN Reason: RX TO DOSE VANCOMYCIN Warfarin Sodium (Coumadin) 5 mg PO ONETIME ONE Stop: 10/13/18 21:16 Last Admin: 10/13/18 21:52 Dose: 5 mg Warfarin Sodium (Coumadin) 7.5 mg PO QPM [facility]NE Stop: 10/14/18 21:00 Last Admin: 10/14/18 17:27 Dose: 7.5 mg Warfarin Sodium (Coumadin) 7.5 mg PO QPM [facility]IENNE Stop: 10/15/18 21:00 Last Admin: 10/15/18 17:44 Dose: 7.5 mg - Exam Quality Assessment: DVT Prophylaxis. No: Supplemental Oxygen General: Alert, Oriented HEENT: Pupils Equal, Pupils Reactive, EOMI, Mucous Membr. Moist/[place] Neck: Supple Lungs: Clear to Auscultation, Normal Respiratory Effort Cardiovascular: Regular Rate, Irregular Rhythm, Murmurs GI/Abdominal Exam: Normal Bowel Sounds, Soft, Non-Tender, No Organomegaly, No Distention, No Abnormal Bruit, No Mass, Pelvis Stable (Male) Exam: Deferred Back Exam: Normal Inspection Extremities: Normal Inspection, Normal Range of Motion, Non-Tender, Normal Capillary Refill, Pedal Edema (1+ pitting bilaterally, improving), Leg Pain ( bilateral LE improving), Limited Range of Motion (R leg; Chronic s/p CVA and hip replacement in 2014), Increased Warmth (bilateral LE improving), Redness ( bilateral LE improving) Peripheral Pulses: 2+: Posterior Tibial (L), Posterior Tibial (R), Dorsalis Pedis (L), Dorsalis Pedis (R) Skin: Warm, Dry, Intact Wound/Incisions: Healing Well, Dressing Dry and Intact Neurological: No New Focal Deficit Psy/Mental Status: Alert, Normal Affect, Normal Mood - Problem List & Annotations (1) Acute febrile illness SNOMED Code(s): 018407766 Code(s): R50.9 - FEVER, UNSPECIFIED Status: Acute Priority: High Current Visit: Yes (2) Cellulitis of right leg without foot SNOMED Code(s): 917511996 Code(s): L03.115 - CELLULITIS OF RIGHT LOWER LIMB Status: Acute Priority : High Current Visit: Yes (3) Subtherapeutic international normalized ratio (INR) SNOMED Code(s): 050929521, 253116182 Code(s): R79.1 - ABNORMAL COAGULATION PROFILE Status: Acute Priority: High Current Visit: Yes (4) Type 2 diabetes mellitus SNOMED Code(s): 21462862 Code(s): E11.9 - TYPE 2 DIABETES MELLITUS WITHOUT COMPLICATIONS Status: Chronic Priority: Medium Current Visit: Yes Qualifiers: Diabetes mellitus prison insulin use: without prison use Diabetes mellitus complication status: with circulatory complication (5) Bacteremia SNOMED Code(s): 5663041 Code(s): R78.81 - BACTEREMIA Status: Acute Priority: High Current Visit : Yes - Problem List Review Problem List Initiated/Reviewed/Updated: Yes - My Orders Last 24 Hours: My Active Orders 10/16/18 18:00 Warfarin [Coumadin] 7.5 mg PO QPM 10/17/18 05:11 BASIC METABOLIC PANEL,BMP [CHEM] AM C-REACTIVE PROTEIN [CHEM] AM CBC WITH AUTO DIFF [HEME] AM MAGNESIUM [CHEM] AM PRO B-TYPE NATRIUR PEPT,BNPPRO [CHEM] AM 10/18/18 05:11 BASIC METABOLIC PANEL,BMP [CHEM] AM C-REACTIVE PROTEIN [CHEM] AM CBC WITH AUTO DIFF [HEME] AM MAGNESIUM [CHEM] AM PRO B-TYPE NATRIUR PEPT,BNPPRO [CHEM] AM - Plan Plan:: Assessment/Plan: Acute: Cellulitis bilateral LE, Improving * Entrance wounds on both legs * Risk factors: DM2, h/o cellulitis, Pedal edema (wears THIERNO hose at home, says he accidently scratched his legs) * CRP 15.2-->12.1 * Sepsis Protocol * IVF, LA 1.8 , Blood cultures pending--> Group B Strep * Rocephin started in ED--> stopped * Add Vancomycin-->stopped * Per blood cultures, start Ancef 2 gm Q8H * PT consult for wound care * Avoid SCDs, THIERNO hose--> elevate LEs Bacteremia * Likely 2/2 above * Blood cultures: Group B strep * Changed ATB to Ancef 2 gm Q8H * Repeat blood cultures pending Elevated BNP, Query CHF * 1234--> 593 * Bilateral 1+ pitting edema-->improving * Risk factors: Afib, HTN, HLD, Heart Murmur, Aortic Valve replacement * ECHO pending * Heart Healthy Diet w/ 2L fluid restriction * Lasix drip; balance with renal function/IVF Atrial Fibrillation, HR now in 70's * Acute on Chronic * HR 120's in ED--> Cardizem given in ED * EKG in ED shows Afib, 115 bpm, T wave inversion in one aVL and V4-V6 w/ mild ST depression * Continue at home Cardizem 180mg Daily * Metoprolol PRN Subtherapeutic INR, Improving * 1.54-->1.72 * Monitor * Pharmacy to dose Warfarin Hypokalemia * 3.4 * Monitor and Replenish Resolved: Hypoxic * Likely 2/2 above * 85% RA--> 91% on 2L NC--> 93% RA * Monitor Hypomagnesemia * 1.5 * Monitor and Replenish Dehydration * AGap 16.8-->14.4 * IVF Chronic: HTN on Lisinopril-->hold HLD on Pravastatin * Lipid panel WNL Afib on Warfarin and Cardizem Heart murmur Aortic Valve replacement-->BC +4 bottles, await 2D echo; may need FRIDA and transfer to [facility] w/ R sided weakness DM2 on metformin-->hold * Sliding scale insulin * Blood glucose checks QIDACBED * A1C 7.2 R hip replacement (2014) Plan: Medical Floor w/ Telemetry Droplet precautions Routine AM Labs Heart Healthy/ADA diet DVT/GI prophylaxis: On Warfarin, Pepcid CM/SW PT/OT Code Status: Full Code; PCP: Dr. Weaver LOS>96 hours with slow response to therapy. <Anjel King T - Last Filed: 10/17/18 07:05> - Patient Data Vitals - Most Recent: Last Vital Signs Temp 36.8 C 10/17/18 03:28 Pulse 66 10/17/18 03:28 Resp 16 10/17/18 03:28 BP 115/90 10/17/18 03:28 Pulse Ox 92 L 10/17/18 03:28 I&O - Last 24 Hours: Intake & Output 10/16/18 10/17/18 10/17/18 22:59 06:59 14:59 Intake Total 1280 500 Output Total 400 1200 Balance 880 -700 Lab Results Last 24 Hours: Laboratory Results - last 24 hr 10/16/18 10/16/18 10/16/18 Range/Units 06:04 06:04 06:04 WBC 4.25 (4.23-9.07) K/mm3 RBC 4.33 L (4.63-6.08) M/mm3 Hgb 12.7 L (13.7-17.5) gm/L Hct 38.0 L (40.1-51.0) % MCV 87.8 (79.0-92.2) fl MCH 29.3 (25.7-32.2) pg MCHC 33.4 (32.2-35.5) g/dl RDW Std Deviation 41.4 (35.1-43.9) fL Plt Count 138 L (163-337) K/mm3 MPV 9.6 (9.4-12.3) fl Neut % (Auto) 58.4 (34.0-67.9) % Lymph % (Auto) 23.5 (21.8-53.1) % Ballard % (Auto) 15.5 H (5.3-12.2) % Eos % (Auto) 1.9 (0.8-7.0) Baso % (Auto) 0.5 (0.1-1.2) % Neut # (Auto) 2.48 (1.78-5.38) K/mm3 Lymph # (Auto) 1.00 L (1.32-3.57) K/mm3 Ballard # (Auto) 0.66 (0.30-0.82) K/mm3 Eos # (Auto) 0.08 (0.04-0.54) K/mm3 Baso # (Auto) 0.02 (0.01-0.08) K/mm3 Manual Slide Review Abnormal smear PT (9.5-12.1) SECONDS INR Sodium 139 (136-145) mEq/L Potassium 3.4 L (3.5-5.1) mEq/L Chloride 104 (98-107) mEq/L Carbon Dioxide 24 (21-32) mEq/L Anion Gap 14.4 (5-15) BUN 23 H (7-18) mg/dL Creatinine 1.3 (0.7-1.3) mg/dL Est Cr Clr Drug Dosing 49.91 mL/min Estimated GFR (MDRD) 54 (>60) mL/min BUN/Creatinine Ratio 17.7 (14-18) Glucose 166 H (83-115) mg/dL POC Glucose (83-110) mg/dL Calcium 8.8 (8.5-10.1) mg/dL Magnesium 2.0 (1.8-2.4) mg/dl C-Reactive Protein 12.1 H* (<1.0) mg/dL NT-Pro-B Natriuret Pep 593 H (0-450) pg/mL 10/16/18 10/16/18 10/16/18 Range/Units 06:04 11:00 16:48 WBC (4.23-9.07) K/mm3 RBC (4.63-6.08) M/mm3 Hgb (13.7-17.5) gm/L Hct (40.1-51.0) % MCV (79.0-92.2) fl MCH (25.7-32.2) pg MCHC (32.2-35.5) g/dl RDW Std Deviation (35.1-43.9) fL Plt Count (163-337) K/mm3 MPV (9.4-12.3) fl Neut % (Auto) (34.0-67.9) % Lymph % (Auto) (21.8-53.1) % Ballard % (Auto) (5.3-12.2) % Eos % (Auto) (0.8-7.0) Baso % (Auto) (0.1-1.2) % Neut # (Auto) (1.78-5.38) K/mm3 Lymph # (Auto) (1.32-3.57) K/mm3 Ballard # (Auto) (0.30-0.82) K/mm3 Eos # (Auto) (0.04-0.54) K/mm3 Baso # (Auto) (0.01-0.08) K/mm3 Manual Slide Review PT 18.6 H (9.5-12.1) SECONDS INR 1.72 Sodium (136-145) mEq/L Potassium (3.5-5.1) mEq/L Chloride (98-107) mEq/L Carbon Dioxide (21-32) mEq/L Anion Gap (5-15) BUN (7-18) mg/dL Creatinine (0.7-1.3) mg/dL Est Cr Clr Drug Dosing mL/min Estimated GFR (MDRD) (>60) mL/min BUN/Creatinine Ratio (14-18) Glucose (83-115) mg/dL POC Glucose 275 H 211 H (83-110) mg/dL Calcium (8.5-10.1) mg/dL Magnesium (1.8-2.4) mg/dl C-Reactive Protein (<1.0) mg/dL NT-Pro-B Natriuret Pep (0-450) pg/mL 10/16/18 10/17/18 Range/Units 20:46 05:59 WBC (4.23-9.07) K/mm3 RBC (4.63-6.08) M/mm3 Hgb (13.7-17.5) gm/L Hct (40.1-51.0) % MCV (79.0-92.2) fl MCH (25.7-32.2) pg MCHC (32.2-35.5) g/dl RDW Std Deviation (35.1-43.9) fL Plt Count (163-337) K/mm3 MPV (9.4-12.3) fl Neut % (Auto) (34.0-67.9) % Lymph % (Auto) (21.8-53.1) % Ballard % (Auto) (5.3-12.2) % Eos % (Auto) (0.8-7.0) Baso % (Auto) (0.1-1.2) % Neut # (Auto) (1.78-5.38) K/mm3 Lymph # (Auto) (1.32-3.57) K/mm3 Ballard # (Auto) (0.30-0.82) K/mm3 Eos # (Auto) (0.04-0.54) K/mm3 Baso # (Auto) (0.01-0.08) K/mm3 Manual Slide Review PT (9.5-12.1) SECONDS INR Sodium (136-145) mEq/L Potassium (3.5-5.1) mEq/L Chloride (98-107) mEq/L Carbon Dioxide (21-32) mEq/L Anion Gap (5-15) BUN (7-18) mg/dL Creatinine (0.7-1.3) mg/dL Est Cr Clr Drug Dosing mL/min Estimated GFR (MDRD) (>60) mL/min BUN/Creatinine Ratio (14-18) Glucose (83-115) mg/dL POC Glucose 218 H 149 H (83-110) mg/dL Calcium (8.5-10.1) mg/dL Magnesium (1.8-2.4) mg/dl C-Reactive Protein (<1.0) mg/dL NT-Pro-B Natriuret Pep (0-450) pg/mL Brendan Results Last 24 Hours: Microbiology 10/16/18 06:04 Aerobic Blood Culture - Preliminary Blood NO GROWTH AFTER 1 DAY Anaerobic Blood Culture - Preliminary NO GROWTH AFTER 1 DAY 10/13/18 15:41 Aerobic Blood Culture - Final Blood - Venous - Lab Draw Beta Streptococcus Group B Anaerobic Blood Culture - Final Beta Streptococcus Group B 10/13/18 15:29 Aerobic Blood Culture - Final Blood - Venous Beta Streptococcus Group B Anaerobic Blood Culture - Final Beta Streptococcus Group B 10/15/18 13:25 Quick Strep Confirmation Culture - Preliminary Throat Group A Streptococcus Rapid Screen - Final NEGATIVE STREP A SCREEN Med Orders - Current: Current Medications Acetaminophen (Tylenol) 650 mg PO Q4H PRN PRN Reason: Pain (Mild 1-3)/fever Last Admin: 10/14/18 14:53 Dose: 650 mg Albuterol (Proventil Neb Soln) 2.5 mg NEB Q2H PRN PRN Reason: Shortness Of Breath/wheezing Albuterol/Ipratropium (Duoneb 3.0-0.5 Mg/3 Ml) 3 ml NEB Q4H PRN PRN Reason: Shortness Of Breath/wheezing Artificial Tears (Refresh Liquigel 1%) 0 ml EYEBOTH Q2H PRN PRN Reason: Dry Eyes Last Admin: 10/15/18 08:18 Dose: 1 drop Benzocaine/Menthol (Cepacol Sore Throat) 1 lozenge MUCMEM Q2H PRN PRN Reason: Sore Throat Bisacodyl (Dulcolax) 5 mg PO DAILY PRN PRN Reason: Constipation Dextrose/Water (Dextrose 50% In Water) 50 ml IVPUSH ASDIRECTED PRN PRN Reason: Hypoglycemia Diltiazem HCl (Cardizem Cd) 180 mg PO DAILY [facility] Last Admin: 10/16/18 08:10 Dose: 180 mg Docusate Sodium (Colace) 100 mg PO BID PRN PRN Reason: Constipation Famotidine (Pepcid) 20 mg PO BID [facility] Last Admin: 10/16/18 20:50 Dose: 20 mg Glimepiride (Amaryl) 4 mg PO DAILY [facility] Last Admin: 10/16/18 08:10 Dose: 4 mg Cefazolin Sodium/Dextrose 2 gm (/ Premix) 50 mls @ 100 mls/hr IV Q8H [facility] Last Admin: 10/17/18 02:43 Dose: 100 mls/hr Insulin Human Lispro (Humalog) 0 unit SUBCUT QIDACANDBED [facility]; Protocol Last Admin: 10/16/18 22:25 Dose: 4 units Ketorolac Tromethamine (Toradol) 15 mg IVPUSH Q8H PRN PRN Reason: Pain/Fever Magnesium Hydroxide (Milk Of Magnesia) 30 ml PO Q12H PRN PRN Reason: Constipation Last Admin: 10/16/18 17:22 Dose: 30 ml Magnesium Sulfate (Pharmacy To Dose - Magnesium Replacement) 1 dose .XX ASDIRECTED PRN PRN Reason: RX TO WATCH MAG LEVELS Metformin HCl (Glucophage) 1,000 mg PO BIDMEALS [facility] Last Admin: 10/17/18 05:59 Dose: 1,000 mg Metoprolol Tartrate (Lopressor) 5 mg IVPUSH Q4H PRN PRN Reason: Tachycardia Metoprolol Tartrate (Lopressor) 25 mg PO Q12H [facility] Last Admin: 10/16/18 20:50 Dose: Not Given Ondansetron HCl (Zofran Odt) 4 mg PO Q4H PRN PRN Reason: nausea, able to take PO Ondansetron HCl (Zofran) 4 mg IV Q4H PRN PRN Reason: Nausea/Vomiting Polyethylene Glycol (Miralax) 17 gm PO DAILY PRN PRN Reason: Constipation Potassium Chloride (Pharmacy To Dose - Potassium Replacement) 1 dose .XX ASDIRECTED PRN PRN Reason: RX TO WATCH K LEVELS Saccharomyces Boulardii (Florastor) 250 mg PO BID [facility] Last Admin: 10/16/18 20:50 Dose: 250 mg Senna/Docusate Sodium (Senna Plus) 1 tab PO BID PRN PRN Reason: Constipation Simvastatin (Zocor) 10 mg PO BEDTIME [facility] Last Admin: 10/16/18 20:50 Dose: 10 mg Temazepam (Restoril) 7.5 mg PO BEDTIME PRN PRN Reason: Sleep Warfarin Sodium (Pharmacy To Dose - Warfarin) 0 dose .XX ASDIRECTED PRN PRN Reason: RX TO DOSE WARFARIN Discontinued Medications Acetaminophen (Tylenol) 650 mg PO NOW ONE Stop: 10/13/18 14:53 Last Admin: 10/13/18 15:11 Dose: 650 mg Diltiazem HCl (Cardizem) 10 mg IVPUSH ONETIME ONE Stop: 10/13/18 16:24 Last Admin: 10/13/18 16:31 Dose: 10 mg Furosemide (Lasix) 40 mg IVPUSH NOW ONE Stop: 10/13/18 18:47 Last Admin: 10/13/18 19:06 Dose: 40 mg Hydromorphone HCl (Dilaudid) 0.25 mg IVPUSH Q2H PRN PRN Reason: Pain (severe 7-10) Sodium Chloride (Normal Saline) 1,000 mls @ 125 mls/hr IV ASDIRECTED [facility] Last Admin: 10/13/18 15:10 Dose: 125 mls/hr Ceftriaxone Sodium 2 gm/ (Sodium Chloride) 100 mls @ 200 mls/hr IV Q24H [facility] Last Admin: 10/14/18 17:24 Dose: 200 mls/hr Sodium Chloride (Normal Saline) 1,000 mls @ 100 mls/hr IV ASDIRECTED [facility] Furosemide 100 mg/ Sodium (Chloride) 100 mls @ 4 mls/hr IV TITRATE [facility] Stop: 10/16/18 05:00 Last Admin: 10/15/18 19:59 Dose: 4 mg/hr, 4 mls/hr Ceftriaxone Sodium 2 gm/ (Sodium Chloride) 100 mls @ 200 mls/hr IV Q24H [facility] Sodium Chloride (Normal Saline) 1,000 mls @ 100 mls/hr IV ASDIRECTED [facility] Last Admin: 10/15/18 05:53 Dose: 100 mls/hr Vancomycin HCl 1 gm/Vancomycin HCl 500 mg/ Sodium Chloride 500 mls @ 333.025 mls/hr IV Q24H [facility] Last Admin: 10/13/18 21:29 Dose: 333.025 mls/hr Vancomycin HCl 1 gm/Vancomycin HCl 500 mg/ Sodium Chloride 500 mls @ 333.025 mls/hr IV Q18H [facility] Last Admin: 10/15/18 05:52 Dose: 333.025 mls/hr Magnesium Sulfate 2 gm/ Premix 50 mls @ 25 mls/hr IV ONETIME ONE Stop: 10/14/18 14:22 Last Admin: 10/14/18 14:27 Dose: 25 mls/hr Magnesium Sulfate 2 gm/ Premix 50 mls @ 25 mls/hr IV ASDIRECTED ONE Stop: 10/15/18 15:14 Potassium Chloride 10 meq/ (Premix) 100 mls @ 100 mls/hr IV Q1H [facility] Stop: 10/15/18 15:14 Last Admin: 10/15/18 14:59 Dose: 100 mls/hr Magnesium Sulfate 2 gm/ Premix 50 mls @ 25 mls/hr IV ASDIRECTED ONE Stop: 10/15/18 17:14 Last Admin: 10/15/18 16:53 Dose: 25 mls/hr Influenza Virus Vaccine (Pharmacy To Dose - Influenza Vaccine) 1 each IM ONETIME ONE Stop: 10/13/18 22:50 Influenza Virus Vaccine (Fluzone High-Dose Syringe) 180 mcg IM .ONCE ONE Stop: 10/14/18 08:16 Iopamidol (Isovue-300 (61%)) 100 ml IVPUSH ONETIME ONE Stop: 10/13/18 17:24 Last Admin: 10/13/18 17:45 Dose: 100 ml Ketorolac Tromethamine (Toradol) 30 mg IV Q6H PRN PRN Reason: Pain (moderate 4-6) Ketorolac Tromethamine (Toradol) 30 mg IVPUSH ONETIME ONE Stop: 10/13/18 21:31 Last Admin: 10/13/18 21:41 Dose: 30 mg Ketorolac Tromethamine (Toradol) 15 mg IVPUSH Q6H PRN PRN Reason: Fever Lisinopril (Prinivil) 5 mg PO DAILY [facility] Last Admin: 10/14/18 08:46 Dose: 5 mg Magnesium Oxide (Magnesium Oxide) 400 mg PO ONETIME ONE Stop: 10/13/18 20:53 Last Admin: 10/13/18 21:52 Dose: 400 mg Metformin HCl (Glucophage) 1,000 mg PO BID [facility] Last Admin: 10/14/18 08:48 Dose: Not Given Metoclopramide HCl (Reglan) 10 mg IVPUSH ONETIME ONE Stop: 10/13/18 14:53 Last Admin: 10/13/18 15:08 Dose: 10 mg Metoclopramide HCl (Reglan) 7.5 mg IVPUSH ONETIME ONE Stop: 10/13/18 19:53 Last Admin: 10/13/18 20:05 Dose: 7.5 mg Potassium Chloride (Klor-Con M20) 40 meq PO BID [facility] Stop: 10/15/18 21:01 Last Admin: 10/15/18 21:13 Dose: 40 meq Potassium Chloride (Klor-Con M20) 40 meq PO Q4H [facility] Stop: 10/16/18 23:01 Last Admin: 10/16/18 22:25 Dose: 40 meq Vancomycin HCl (Pharmacy To Dose - Vancomycin) 0 dose .XX ASDIRECTED PRN PRN Reason: RX TO DOSE VANCOMYCIN Warfarin Sodium (Coumadin) 5 mg PO ONETIME ONE Stop: 10/13/18 21:16 Last Admin: 10/13/18 21:52 Dose: 5 mg Warfarin Sodium (Coumadin) 7.5 mg PO QPM [facility] Stop: 10/14/18 21:00 Last Admin: 10/14/18 17:27 Dose: 7.5 mg Warfarin Sodium (Coumadin) 7.5 mg PO QPM [facility] Stop: 10/15/18 21:00 Last Admin: 10/15/18 17:44 Dose: 7.5 mg Warfarin Sodium (Coumadin) 7.5 mg PO QPM [facility] Stop: 10/16/18 18:01 Last Admin: 10/16/18 17:22 Dose: 7.5 mg - My Orders Last 24 Hours: My Active Orders 10/16/18 13:41 Urinary Catheter Removal [RC] Per Unit Routine - Plan Plan:: Spoke to pt and at bedside and updated them about his tests results, treatment and possible transfer plan pending 2D echo and or repeat blood culture results. He was provided with educational materials for new diabetic medications.
[2018-10-16] MEDS ORDERED: Warfarin 7.5 MG Tab PO SCH (18:00)
[2018-10-16] MEDS: Potassium Chloride 20 MEQ Tab.ER PO SCH ×2 (19:06→22:25)
[2018-10-16] MEDS: Simvastatin 10 MG Tab PO SCH (20:50)
[2018-10-17] MEDS: ceFAZolin 2 GM in Premix Bag 1 BAG IV SCH ×3 (02:43→18:09)
[2018-10-17] MEDS: metFORMIN 500 MG Tab PO SCH ×2 (05:59→18:10)
[2018-10-17] MEDS: Insulin Lispro 100 UNIT/ML 10 ML VIAL SUBCUT SCH ×4 (07:54→21:13)
[2018-10-17] MEDS: Saccharomyces Boulardii (Probiotic) 250 MG Cap PO SCH ×2 (09:25→20:04)
[2018-10-17] MEDS: Metoprolol Tartrate 25 MG Tab PO SCH ×2 (09:25→20:04)
[2018-10-17] MEDS: Glimepiride 2 MG Tab PO SCH (09:25)
[2018-10-17] MEDS: Diltiazem 180 MG Cap.CD PO SCH (09:25)
[2018-10-17] MEDS: Famotidine 20 MG Tab PO SCH ×2 (09:25→20:04)
[2018-10-17] MEDS: Ketorolac 15 MG/ML SDV IVPUSH PRN ×2 (12:06→20:22)
--- NOTE | 2018-10-17 17:02 | PCM.PN ---
- General Info Date of Service: 10/17/18 Admission Dx/Problem (Free Text): Admission Diagnosis/Problem Admission Diagnosis/Problem Cellulitis Subjective Update: In to see Trung. He is sitting up in bed visiting with his . He is feeling very good today and is ready to go home. We discussed the results of his ECHO which looked good, and that we are waiting for 48H of negative blood cultures before D/C'ing him. If they are negative, he will go home tomorrow. If they are positive, he will need to be transferred to [place] for FRIDA and cardiology. He and his understand and agree with this plan. We also discussed using FLORIN wrap instead of using compression socks, as that is how he scratched his leg and got this infection. They plan to try this method, or to have the help him with his socks in the future. No other concerns from nursing. Functional Status: Reports: Pain Controlled, Tolerating Diet, Ambulating, Urinating - Review of Systems General: Reports: No Symptoms HEENT: Reports: No Symptoms Pulmonary: Reports: No Symptoms Cardiovascular: Reports: No Symptoms Gastrointestinal: Reports: No Symptoms Genitourinary: Reports: No Symptoms Musculoskeletal: Reports: Joint Pain (chronic s/p R hip repair 2014) Skin: Reports: No Symptoms Neurological: Reports: No Symptoms Psychiatric: Reports: No Symptoms - Patient Data Vitals - Most Recent: Last Vital Signs Temp 97.9 F 10/17/18 15:10 Pulse 85 10/17/18 15:10 Resp 16 10/17/18 11:58 BP 99/70 10/17/18 15:10 Pulse Ox 93 L 10/17/18 15:10 Weight - Most Recent: 237 lb 12.8 oz I&O - Last 24 Hours: Intake & Output 10/17/18 10/17/18 10/17/18 06:59 14:59 22:59 Intake Total 500 300 400 Output Total 1200 450 Balance -700 300 -50 Lab Results Last 24 Hours: Laboratory Results - last 24 hr 10/16/18 10/16/18 10/17/18 Range/Units 16:48 20:46 05:59 WBC (4.23-9.07) K/mm3 RBC (4.63-6.08) M/mm3 Hgb (13.7-17.5) gm/L Hct (40.1-51.0) % MCV (79.0-92.2) fl MCH (25.7-32.2) pg MCHC (32.2-35.5) g/dl RDW Std Deviation (35.1-43.9) fL Plt Count (163-337) K/mm3 MPV (9.4-12.3) fl Neut % (Auto) (34.0-67.9) % Lymph % (Auto) (21.8-53.1) % Bell % (Auto) (5.3-12.2) % Eos % (Auto) (0.8-7.0) Baso % (Auto) (0.1-1.2) % Neut # (Auto) (1.78-5.38) K/mm3 Lymph # (Auto) (1.32-3.57) K/mm3 Bell # (Auto) (0.30-0.82) K/mm3 Eos # (Auto) (0.04-0.54) K/mm3 Baso # (Auto) (0.01-0.08) K/mm3 Manual Slide Review PT (9.5-12.1) SECONDS INR Sodium (136-145) mEq/L Potassium (3.5-5.1) mEq/L Chloride (98-107) mEq/L Carbon Dioxide (21-32) mEq/L Anion Gap (5-15) BUN (7-18) mg/dL Creatinine (0.7-1.3) mg/dL Est Cr Clr Drug Dosing mL/min Estimated GFR (MDRD) (>60) mL/min BUN/Creatinine Ratio (14-18) Glucose (83-115) mg/dL POC Glucose 211 H 218 H 149 H (83-110) mg/dL Calcium (8.5-10.1) mg/dL Magnesium (1.8-2.4) mg/dl C-Reactive Protein (<1.0) mg/dL NT-Pro-B Natriuret Pep (0-450) pg/mL 10/17/18 10/17/18 10/17/18 Range/Units 06:00 06:00 06:00 WBC 3.69 L (4.23-9.07) K/mm3 RBC 4.14 L (4.63-6.08) M/mm3 Hgb 12.2 L (13.7-17.5) gm/L Hct 36.7 L (40.1-51.0) % MCV 88.6 (79.0-92.2) fl MCH 29.5 (25.7-32.2) pg MCHC 33.2 (32.2-35.5) g/dl RDW Std Deviation 41.1 (35.1-43.9) fL Plt Count 164 (163-337) K/mm3 MPV 9.6 (9.4-12.3) fl Neut % (Auto) 44.8 (34.0-67.9) % Lymph % (Auto) 33.3 (21.8-53.1) % Bell % (Auto) 16.8 H (5.3-12.2) % Eos % (Auto) 4.3 (0.8-7.0) Baso % (Auto) 0.5 (0.1-1.2) % Neut # (Auto) 1.65 L (1.78-5.38) K/mm3 Lymph # (Auto) 1.23 L (1.32-3.57) K/mm3 Bell # (Auto) 0.62 (0.30-0.82) K/mm3 Eos # (Auto) 0.16 (0.04-0.54) K/mm3 Baso # (Auto) 0.02 (0.01-0.08) K/mm3 Manual Slide Review Abnormal smear PT (9.5-12.1) SECONDS INR Sodium 139 (136-145) mEq/L Potassium 4.3 (3.5-5.1) mEq/L Chloride 107 (98-107) mEq/L Carbon Dioxide 27 (21-32) mEq/L Anion Gap 9.3 (5-15) BUN 24 H (7-18) mg/dL Creatinine 1.2 (0.7-1.3) mg/dL Est Cr Clr Drug Dosing 54.21 mL/min Estimated GFR (MDRD) 59 (>60) mL/min BUN/Creatinine Ratio 20.0 H (14-18) Glucose 155 H (83-115) mg/dL POC Glucose (83-110) mg/dL Calcium 9.1 (8.5-10.1) mg/dL Magnesium 2.1 (1.8-2.4) mg/dl C-Reactive Protein 6.1 H* (<1.0) mg/dL NT-Pro-B Natriuret Pep 302 (0-450) pg/mL 10/17/18 10/17/18 Range/Units 06:00 10:48 WBC (4.23-9.07) K/mm3 RBC (4.63-6.08) M/mm3 Hgb (13.7-17.5) gm/L Hct (40.1-51.0) % MCV (79.0-92.2) fl MCH (25.7-32.2) pg MCHC (32.2-35.5) g/dl RDW Std Deviation (35.1-43.9) fL Plt Count (163-337) K/mm3 MPV (9.4-12.3) fl Neut % (Auto) (34.0-67.9) % Lymph % (Auto) (21.8-53.1) % Bell % (Auto) (5.3-12.2) % Eos % (Auto) (0.8-7.0) Baso % (Auto) (0.1-1.2) % Neut # (Auto) (1.78-5.38) K/mm3 Lymph # (Auto) (1.32-3.57) K/mm3 Bell # (Auto) (0.30-0.82) K/mm3 Eos # (Auto) (0.04-0.54) K/mm3 Baso # (Auto) (0.01-0.08) K/mm3 Manual Slide Review PT 24.5 H (9.5-12.1) SECONDS INR 2.28 Sodium (136-145) mEq/L Potassium (3.5-5.1) mEq/L Chloride (98-107) mEq/L Carbon Dioxide (21-32) mEq/L Anion Gap (5-15) BUN (7-18) mg/dL Creatinine (0.7-1.3) mg/dL Est Cr Clr Drug Dosing mL/min Estimated GFR (MDRD) (>60) mL/min BUN/Creatinine Ratio (14-18) Glucose (83-115) mg/dL POC Glucose 233 H (83-110) mg/dL Calcium (8.5-10.1) mg/dL Magnesium (1.8-2.4) mg/dl C-Reactive Protein (<1.0) mg/dL NT-Pro-B Natriuret Pep (0-450) pg/mL Brendan Results Last 24 Hours: Microbiology 10/15/18 13:25 Quick Strep Confirmation Culture - Final Throat NEGATIVE FOR BETA STREP Group A Streptococcus Rapid Screen - Final NEGATIVE STREP A SCREEN 10/16/18 06:04 Aerobic Blood Culture - Preliminary Blood NO GROWTH AFTER 1 DAY Anaerobic Blood Culture - Preliminary NO GROWTH AFTER 1 DAY Med Orders - Current: Current Medications Acetaminophen (Tylenol) 650 mg PO Q4H PRN PRN Reason: Pain (Mild 1-3)/fever Last Admin: 10/14/18 14:53 Dose: 650 mg Albuterol (Proventil Neb Soln) 2.5 mg NEB Q2H PRN PRN Reason: Shortness Of Breath/wheezing Albuterol/Ipratropium (Duoneb 3.0-0.5 Mg/3 Ml) 3 ml NEB Q4H PRN PRN Reason: Shortness Of Breath/wheezing Artificial Tears (Refresh Liquigel 1%) 0 ml EYEBOTH Q2H PRN PRN Reason: Dry Eyes Last Admin: 10/15/18 08:18 Dose: 1 drop Benzocaine/Menthol (Cepacol Sore Throat) 1 lozenge MUCMEM Q2H PRN PRN Reason: Sore Throat Bisacodyl (Dulcolax) 5 mg PO DAILY PRN PRN Reason: Constipation Dextrose/Water (Dextrose 50% In Water) 50 ml IVPUSH ASDIRECTED PRN PRN Reason: Hypoglycemia Diltiazem HCl (Cardizem Cd) 180 mg PO DAILY [facility] Last Admin: 10/17/18 09:25 Dose: 180 mg Docusate Sodium (Colace) 100 mg PO BID PRN PRN Reason: Constipation Famotidine (Pepcid) 20 mg PO BID [facility] Last Admin: 10/17/18 09:25 Dose: 20 mg Glimepiride (Amaryl) 4 mg PO DAILY [facility] Last Admin: 10/17/18 09:25 Dose: 4 mg Cefazolin Sodium/Dextrose 2 gm (/ Premix) 50 mls @ 100 mls/hr IV Q8H [facility] Last Admin: 10/17/18 12:00 Dose: 100 mls/hr Insulin Human Lispro (Humalog) 0 unit SUBCUT QIDACANDBED [facility]; Protocol Last Admin: 10/17/18 12:01 Dose: 4 units Ketorolac Tromethamine (Toradol) 15 mg IVPUSH Q8H PRN PRN Reason: Pain/Fever Last Admin: 10/17/18 12:06 Dose: 15 mg Magnesium Hydroxide (Milk Of Magnesia) 30 ml PO Q12H PRN PRN Reason: Constipation Last Admin: 10/16/18 17:22 Dose: 30 ml Magnesium Sulfate (Pharmacy To Dose - Magnesium Replacement) 0 dose .XX ASDIRECTED PRN PRN Reason: RX TO WATCH MAG LEVELS [facility] Last Admin: 10/17/18 05:59 Dose: 1,000 mg Metoprolol Tartrate (Lopressor) 5 mg IVPUSH Q4H PRN PRN Reason: Tachycardia Metoprolol Tartrate (Lopressor) 25 mg PO Q12H [facility] Last Admin: 10/17/18 09:25 Dose: Not Given Ondansetron HCl (Zofran Odt) 4 mg PO Q4H PRN PRN Reason: nausea, able to take PO Ondansetron HCl (Zofran) 4 mg IV Q4H PRN PRN Reason: Nausea/Vomiting Polyethylene Glycol (Miralax) 17 gm PO DAILY PRN PRN Reason: Constipation Potassium Chloride (Pharmacy To Dose - Potassium Replacement) 0 dose .XX ASDIRECTED PRN PRN Reason: RX TO WATCH K LEVELS Saccharomyces Boulardii (Florastor) 250 mg PO BID [facility] Last Admin: 10/17/18 09:25 Dose: 250 mg Senna/Docusate Sodium (Senna Plus) 1 tab PO BID PRN PRN Reason: Constipation Simvastatin (Zocor) 10 mg PO BEDTIME [facility] Last Admin: 10/16/18 20:50 Dose: 10 mg Temazepam (Restoril) 7.5 mg PO BEDTIME PRN PRN Reason: Sleep Warfarin Sodium (Pharmacy To Dose - Warfarin) 0 dose .XX ASDIRECTED PRN PRN Reason: RX TO DOSE WARFARIN Warfarin Sodium (Coumadin) 5 mg PO QPM [facility] Stop: 10/17/18 18:01 Discontinued Medications Acetaminophen (Tylenol) 650 mg PO NOW ONE Stop: 10/13/18 14:53 Last Admin: 10/13/18 15:11 Dose: 650 mg Diltiazem HCl (Cardizem) 10 mg IVPUSH ONETIME ONE Stop: 10/13/18 16:24 Last Admin: 10/13/18 16:31 Dose: 10 mg Furosemide (Lasix) 40 mg IVPUSH NOW ONE Stop: 10/13/18 18:47 Last Admin: 10/13/18 19:06 Dose: 40 mg Hydromorphone HCl (Dilaudid) 0.25 mg IVPUSH Q2H PRN PRN Reason: Pain (severe 7-10) Sodium Chloride (Normal Saline) 1,000 mls @ 125 mls/hr IV ASDIRECTED [facility] Last Admin: 10/13/18 15:10 Dose: 125 mls/hr Ceftriaxone Sodium 2 gm/ (Sodium Chloride) 100 mls @ 200 mls/hr IV Q24H [facility] Last Admin: 10/14/18 17:24 Dose: 200 mls/hr Sodium Chloride (Normal Saline) 1,000 mls @ 100 mls/hr IV ASDIRECTED [facility] Furosemide 100 mg/ Sodium (Chloride) 100 mls @ 4 mls/hr IV TITRATE [facility] Stop: 10/16/18 05:00 Last Admin: 10/15/18 19:59 Dose: 4 mg/hr, 4 mls/hr Ceftriaxone Sodium 2 gm/ (Sodium Chloride) 100 mls @ 200 mls/hr IV Q24H [facility] Sodium Chloride (Normal Saline) 1,000 mls @ 100 mls/hr IV ASDIRECTED [facility] Last Admin: 10/15/18 05:53 Dose: 100 mls/hr Vancomycin HCl 1 gm/Vancomycin HCl 500 mg/ Sodium Chloride 500 mls @ 333.025 mls/hr IV Q24H [facility] Last Admin: 10/13/18 21:29 Dose: 333.025 mls/hr Vancomycin HCl 1 gm/Vancomycin HCl 500 mg/ Sodium Chloride 500 mls @ 333.025 mls/hr IV Q18H [facility] Last Admin: 10/15/18 05:52 Dose: 333.025 mls/hr Magnesium Sulfate 2 gm/ Premix 50 mls @ 25 mls/hr IV ONETIME ONE Stop: 10/14/18 14:22 Last Admin: 10/14/18 14:27 Dose: 25 mls/hr Magnesium Sulfate 2 gm/ Premix 50 mls @ 25 mls/hr IV ASDIRECTED ONE Stop: 10/15/18 15:14 Potassium Chloride 10 meq/ (Premix) 100 mls @ 100 mls/hr IV Q1H [facility] Stop: 10/15/18 15:14 Last Admin: 10/15/18 14:59 Dose: 100 mls/hr Magnesium Sulfate 2 gm/ Premix 50 mls @ 25 mls/hr IV ASDIRECTED ONE Stop: 10/15/18 17:14 Last Admin: 10/15/18 16:53 Dose: 25 mls/hr Influenza Virus Vaccine (Pharmacy To Dose - Influenza Vaccine) 1 each IM ONETIME ONE Stop: 10/13/18 22:50 Influenza Virus Vaccine (Fluzone High-Dose Syringe) 180 mcg IM .ONCE ONE Stop: 10/14/18 08:16 Iopamidol (Isovue-300 (61%)) 100 ml IVPUSH ONETIME ONE Stop: 10/13/18 17:24 Last Admin: 10/13/18 17:45 Dose: 100 ml Ketorolac Tromethamine (Toradol) 30 mg IV Q6H PRN PRN Reason: Pain (moderate 4-6) Ketorolac Tromethamine (Toradol) 30 mg IVPUSH ONETIME ONE Stop: 10/13/18 21:31 Last Admin: 10/13/18 21:41 Dose: 30 mg Ketorolac Tromethamine (Toradol) 15 mg IVPUSH Q6H PRN PRN Reason: Fever Lisinopril (Prinivil) 5 mg PO DAILY [facility] Last Admin: 10/14/18 08:46 Dose: 5 mg Magnesium Oxide (Magnesium Oxide) 400 mg PO ONETIME ONE Stop: 10/13/18 20:53 Last Admin: 10/13/18 21:52 Dose: 400 mg Metformin HCl (Glucophage) 1,000 mg PO BID [facility] Last Admin: 10/14/18 08:48 Dose: Not Given Metoclopramide HCl (Reglan) 10 mg IVPUSH ONETIME ONE Stop: 10/13/18 14:53 Last Admin: 10/13/18 15:08 Dose: 10 mg Metoclopramide HCl (Reglan) 7.5 mg IVPUSH ONETIME ONE Stop: 10/13/18 19:53 Last Admin: 10/13/18 20:05 Dose: 7.5 mg Potassium Chloride (Klor-Con M20) 40 meq PO BID [facility] Stop: 10/15/18 21:01 Last Admin: 10/15/18 21:13 Dose: 40 meq Potassium Chloride (Klor-Con M20) 40 meq PO Q4H [facility] Stop: 10/16/18 23:01 Last Admin: 10/16/18 22:25 Dose: 40 meq Vancomycin HCl (Pharmacy To Dose - Vancomycin) 0 dose .XX ASDIRECTED PRN PRN Reason: RX TO DOSE VANCOMYCIN Warfarin Sodium (Coumadin) 5 mg PO ONETIME ONE Stop: 10/13/18 21:16 Last Admin: 10/13/18 21:52 Dose: 5 mg Warfarin Sodium (Coumadin) 7.5 mg PO QPM [facility] Stop: 10/14/18 21:00 Last Admin: 10/14/18 17:27 Dose: 7.5 mg Warfarin Sodium (Coumadin) 7.5 mg PO QPM [facility] Stop: 10/15/18 21:00 Last Admin: 10/15/18 17:44 Dose: 7.5 mg Warfarin Sodium (Coumadin) 7.5 mg PO QPM [facility] Stop: 10/16/18 18:01 Last Admin: 10/16/18 17:22 Dose: 7.5 mg - Exam Quality Assessment: DVT Prophylaxis General: Alert, Oriented HEENT: Pupils Equal, Pupils Reactive, EOMI, Mucous Membr. Moist/[place] Neck: Supple Lungs: Clear to Auscultation, Normal Respiratory Effort Cardiovascular: Regular Rate, Irregular Rhythm, Murmurs GI/Abdominal Exam: Normal Bowel Sounds, Soft, Non-Tender, No Organomegaly, No Distention, No Abnormal Bruit, No Mass, Pelvis Stable (Male) Exam: Deferred Back Exam: Normal Inspection Extremities: Normal Range of Motion, Non-Tender, Normal Capillary Refill, Pedal Edema (1+ pitting bilaterally, improving), Leg Pain (bilateral LE improving), Limited Range of Motion (R leg; Chronic s/p CVA and hip replacement in 2014), Increased Warmth (bilateral LE improving) Peripheral Pulses: 2+: Posterior Tibial (L), Posterior Tibial (R), Dorsalis Pedis (L), Dorsalis Pedis (R) Skin: Warm, Dry, Intact Wound/Incisions: Healing Well, Dressing Dry and Intact Psy/Mental Status: Alert, Normal Affect, Normal Mood - Problem List & Annotations (1) Acute febrile illness SNOMED Code(s): 398271238 Code(s): R50.9 - FEVER, UNSPECIFIED Status: Acute Priority: High Current Visit: Yes (2) Cellulitis of right leg without foot SNOMED Code(s): 847707418 Code(s): L03.115 - CELLULITIS OF RIGHT LOWER LIMB Status: Acute Priority : High Current Visit: Yes (3) Subtherapeutic international normalized ratio (INR) SNOMED Code(s): 023975374, 533619434 Code(s): R79.1 - ABNORMAL COAGULATION PROFILE Status: Acute Priority: High Current Visit: Yes (4) Type 2 diabetes mellitus SNOMED Code(s): 34742439 Code(s): E11.9 - TYPE 2 DIABETES MELLITUS WITHOUT COMPLICATIONS Status: Chronic Priority: Medium Current Visit: Yes Qualifiers: Diabetes mellitus care home insulin use: without care home use Diabetes mellitus complication status: with circulatory complication (5) Bacteremia SNOMED Code(s): 8612898 Code(s): R78.81 - BACTEREMIA Status: Acute Priority: High Current Visit : Yes - Problem List Review Problem List Initiated/Reviewed/Updated: Yes - My Orders Last 24 Hours: My Active Orders 10/16/18 18:43 Pharmacy to Dose - Magnesium R [Pharmacy to Dose - Magnesium Replacement] 0 dose .XX ASDIRECTED PRN Pharmacy to Dose - Potassium R [Pharmacy to Dose - Potassium Replacement] 0 dose .XX ASDIRECTED PRN 10/17/18 07:00 metFORMIN [Glucophage] 1,000 mg PO BIDMEALS 10/18/18 05:11 BASIC METABOLIC PANEL,BMP [CHEM] AM C-REACTIVE PROTEIN [CHEM] AM CBC WITH AUTO DIFF [HEME] AM MAGNESIUM [CHEM] AM PRO B-TYPE NATRIUR PEPT,BNPPRO [CHEM] AM - Plan Plan:: Assessment/Plan: Acute: Cellulitis bilateral LE, Improving * Entrance wounds on both legs * Risk factors: DM2, h/o cellulitis, Pedal edema (wears THIERNO hose at home, says he accidently scratched his legs) * CRP 15.2-->12.1--> 6.1 * Sepsis Protocol * IVF, LA 1.8-->1.3 , Blood cultures--> Group B Strep * Rocephin started in ED--> stopped * Add Vancomycin-->stopped * Per blood cultures, start Ancef 2 gm Q8H * PT consult for wound care * Avoid SCDs, THIERNO hankins--> elevate LEs Bacteremia, Improving * Likely 2/2 above * Blood cultures: Group B strep * Changed ATB to Ancef 2 gm Q8H * Repeat Blood cultures show no growth after 24H; D/C when 48H no growth Atrial Fibrillation, HR now in 70's * Acute on Chronic * HR 120's in ED--> Cardizem given in ED * EKG in ED shows Afib, 115 bpm, T wave inversion in one aVL and V4-V6 w/ mild ST depression * Continue at home Cardizem 180mg Daily * Metoprolol PRN Resolved: Hypoxic * Likely 2/2 above * 85% RA--> 91% on 2L NC--> 93% RA * Monitor Hypomagnesemia * 1.5--> 2.1 * Monitor and Replenish Hypokalemia * 3.4--> 4.3 * Monitor and Replenish Dehydration * AGap 16.8-->14.4--> 9.3 * IVF Elevated BNP, Query CHF * 1234--> 593-->302 * Bilateral 1+ pitting edema-->improving * Risk factors: Afib, HTN, HLD, Heart Murmur, Aortic Valve replacement * ECHO 10/16/18: * LVEF 55-60% * Grade 2 pattern of LV diastolic filling * Mod dilated L atrium * Bioprosthesis in aortic position * Mild mitral regurg, Mod tricuspid regurg * Heart Healthy Diet w/ 2L fluid restriction * Lasix drip; balance with renal function/IVF Subtherapeutic INR, Improving * 1.54-->1.72--> 2.28 * Monitor * Pharmacy to dose Warfarin Chronic: HTN on Lisinopril-->hold HLD on Pravastatin * Lipid panel WNL Afib on Warfarin and Cardizem Heart murmur Aortic Valve replacement-->BC +4 bottles, await 2D echo; may need FRIDA and transfer to [facility] w/ R sided weakness DM2 on metformin-->hold * Sliding scale insulin * Blood glucose checks QIDACBED * A1C 7.2 * Provided with educational materials for new diabetic medications R hip replacement (2014) Plan: Medical Floor w/ Telemetry Droplet precautions Routine AM Labs Heart Healthy/ADA diet DVT/GI prophylaxis: On Warfarin, Pepcid CM/SW PT/OT Code Status: Full Code; PCP: Dr. Weaver D/Homero tomorrow if Blood Cultures negative x 48H LOS>96 hours with slow response to therapy.
[2018-10-17] MEDS ORDERED: Warfarin 5 MG Tab PO SCH (18:00)
[2018-10-17] MEDS: Simvastatin 10 MG Tab PO SCH (20:04)
[2018-10-18] MEDS: ceFAZolin 2 GM in Premix Bag 1 BAG IV SCH ×2 (02:33→12:01)
[2018-10-18] MEDS: Insulin Lispro 100 UNIT/ML 10 ML VIAL SUBCUT SCH ×2 (06:36→12:01)
[2018-10-18] MEDS: metFORMIN 500 MG Tab PO SCH (06:49)
[2018-10-18] MEDS: Diltiazem 180 MG Cap.CD PO SCH (09:05)
[2018-10-18] MEDS: Saccharomyces Boulardii (Probiotic) 250 MG Cap PO SCH (09:05)
[2018-10-18] MEDS: Famotidine 20 MG Tab PO SCH (09:06)
[2018-10-18] MEDS: Glimepiride 2 MG Tab PO SCH (09:06)
[2018-10-18] MEDS: Metoprolol Tartrate 25 MG Tab PO SCH (09:07)
[2018-10-18 15:00] VITALS: BP 127/87
--- NOTE | 2018-10-18 15:57 | PCM.DCSUM1 ---
Discharge Summary - Hospital Course Free Text/Narrative:: Patient was primarily admitted for sepsis secondary right foot cellulitis but subsequently developed group b beta strep bacteremia. He was treated with appropriate intravenous antibiotics until his repeat blood cultures came back negative for organismal growth. His 2D echo was also negative for vegetations or any signs of intracardiac or valvular infections. However he was referred to see outpatient cardiology for further evaluation to include FRIDA after completion of his oral antibiotic treatment due to his hx/o valvular prosthesis. His hospital course was mildly complicated by electrolyte abnormalities but we were quick to resolve it prior to discharge. His INR was at therapeutic range on the day of discharge. Patient was stable upon discharge. He was advised to complete his oral antibiotic as directed and to follow discharge instructions. He was further advised to follow up with his family doctor in 1 week and to come back or seek immediate care should his symptoms persist or get worse. Him and his at bedside expressed understanding and in agreement with the plans as expressed above. All their questions were answered. HPI Initial Comments: This is a 78 yo male with past medical h/o Afib, Heart murmur, Aortic Valve replacement, CVA, DM2 on metformin, R hip replacement (2014) who comes in for bilateral LE Cellulitis. He c/o of F/C, weakness, lightheadedness, dizziness, SOB, loss of appetite, urinary frequency, leg pain. Denies chest pain, cough, abdominal pain, N/V/D or other GI/ complaints. His initial workup in the ED shows a CBC remarkable for RBC 4.42, Hgb 13.2, Hct 39.6, Plt 144, Neut 86% w/ 2% bandemia, Lymph 11%, [place] 1%, ESR 44. Coagulation studies show PT 16.6, INR 1.54. Her chemistry is remarkable for AGap 16.8, BUN 19, Glu 204, Mag 1.5, CRP 15.2, BNP 1234. Temperature 102.6. O2 85% RA. EKG shows Afib, 115 bpm, T wave inversion in one aVL and V4-V6 w/ mild ST depression. Mycoplasma negative. Influenza negative. UA unimpressive for UTI. CXR shows nothing acute. Head CT shows nothing acute. Ab/Pelvis CT shows nothing acute. He is subsequently admitted to the medical floor. He is a Full Code. PCP is Dr. Weaver. Diagnosis: Stroke: No - Discharge Data Discharge Date: 10/18/18 Discharge Disposition: Home, Self-Care 01 Condition: Good - Discharge Diagnosis/Problem(s) (1) Cellulitis of right leg without foot SNOMED Code(s): 193573240 ICD Code: L03.115 - CELLULITIS OF RIGHT LOWER LIMB Status: Acute Priority : High (2) Hypoxia SNOMED Code(s): 278192382 ICD Code: R09.02 - HYPOXEMIA Status: Resolved (3) Hypomagnesemia SNOMED Code(s): 465809951 ICD Code: E83.42 - HYPOMAGNESEMIA Status: Resolved (4) Hypokalemia SNOMED Code(s): 38319578 ICD Code: E87.6 - HYPOKALEMIA Status: Resolved (5) Acute febrile illness SNOMED Code(s): 885545398 ICD Code: R50.9 - FEVER, UNSPECIFIED Status: Resolved Priority: High (6) Bacteremia SNOMED Code(s): 3924004 ICD Code: R78.81 - BACTEREMIA Status: Resolved Priority: High (7) Subtherapeutic international normalized ratio (INR) SNOMED Code(s): 958912582, 059605783 ICD Code: R79.1 - ABNORMAL COAGULATION PROFILE Status: Resolved Priority : High (8) Type 2 diabetes mellitus SNOMED Code(s): 04593287 ICD Code: E11.9 - TYPE 2 DIABETES MELLITUS WITHOUT COMPLICATIONS Status: Chronic Priority: Medium Qualifiers: Diabetes mellitus prison insulin use: without prison use Diabetes mellitus complication status: with circulatory complication (9) Obesity (BMI 30.0-34.9) SNOMED Code(s): 447573545238954 ICD Code: E66.9 - OBESITY, UNSPECIFIED Status: Acute - Patient Summary/Data Consults: Consultations 10/13/18 20:03 Consult to Case Management/Procedure Writer [CONS] Routine Consult to Diabetic Nurse Specialist [CONS] Routine Consult to Wedding Florist [CONS] Routine OT Evaluation and Treatment [CONS] Routine PT Evaluation and Treatment [CONS] Routine Respiratory Care Assess and Treatment [CONS] Routine 10/13/18 20:13 PT Evaluation and Treatment [CONS] Routine Labs Pending at D/C: None Recommended Follow-up Testing/Procedures: None - Patient Instructions Diet: Heart Healthy Diet, Usual Diet as Tolerated, Diabetic Diet, Weight Loss Diet Activity: As Tolerated Driving: May Drive Today Showering/Bathing: May Shower Notify Provider of: Fever, Increased Pain, Swelling and Redness, Nausea and/or Vomiting Other/Special Instructions: - Please take all new medications as directed. - Resume all home medications and routine home activities as tolerated. - Recommend follow up with Cardiology after discharge to assess for possible FRIDA need. - Call or follow up with your PCP for any questions or concerns after discharge. - Follow up with your PCP in 1 week with repeat INR. - Come back or seek immediate care should your symptoms persist or get worse - Discharge Plan *PRESCRIPTION DRUG MONITORING PROGRAM REVIEWED*: Not Applicable *COPY OF PRESCRIPTION DRUG MONITORING REPORT IN PATIENT EDWIN: Not Applicable Prescriptions/Med Rec: Penicillin V Potassium 500 mg PO Q8HR@0700,1400,2100 #15 tab Saccharomyces Boulardii [Florastor] 250 mg PO TID #15 capsule Home Medications: Home Meds Glimepiride [Amaryl] 4 mg PO BEDTIME 07/28/15 [History] Ibuprofen 200 mg PO BID 07/28/15 [History] Lisinopril 5 mg PO DAILY 07/28/15 [History] Pravastatin [Pravachol] 20 mg PO BEDTIME 07/28/15 [History] metFORMIN [Glucophage] 1,000 mg PO BID 07/28/15 [History] Diltiazem HCl [Cartia Xt] 180 mg PO DAILY 10/13/18 [History] Warfarin Sodium [Jantoven] 4 mg PO MOWEFR 10/13/18 [History] Warfarin Sodium [Jantoven] 6 mg PO SUTUTHSA 10/13/18 [History] Penicillin V Potassium 500 mg PO Q8HR@0700,1400,2100 #15 tab 10/18/18 [Rx] Saccharomyces Boulardii [Florastor] 250 mg PO TID #15 capsule 10/18/18 [Rx] Patient Handouts: Hypoxemia, Hypomagnesemia, Hypokalemia, Cellulitis, Adult, [id number], Bacteremia Referrals: Ravi Weaver MD [Primary Care Provider] - 11/01/18 4:30 pm (please attend the scheduled follow up appointment with your primary care provider.) - Discharge Summary/Plan Comment DC Time >30 min.: No Discharge Summary/Plan Comment: Discharge to Home - General Info Date of Service: 10/18/18 Admission Dx/Problem (Free Text: Admission Diagnosis/Problem Admission Diagnosis/Problem Cellulitis Subjective Update: In to see Trung. He is sitting up in bed visiting with his . He is feeling very good today and is ready to go home. We discussed the results of his ECHO which looked good, and that we are waiting for 48H of negative blood cultures before D/C'ing him. If they are negative, he will go home tomorrow. If they are positive, he will need to be transferred to [place] for FRIDA and cardiology. He and his understand and agree with this plan. We also discussed using FLORIN wrap instead of using compression socks, as that is how he scratched his leg and got this infection. They plan to try this method, or to have the help him with his socks in the future. No other concerns from nursing. Functional Status: Reports: Pain Controlled, Tolerating Diet, Ambulating, Urinating. Denies: New Symptoms - Review of Systems General: Denies: Fever, Weakness, Fatigue, Malaise, Chills HEENT: Reports: No Symptoms Pulmonary: Denies: Shortness of Breath, Pleuritic Chest Pain, Cough, Sputum, Wheezing Cardiovascular: Denies: Chest Pain, Dyspnea on Exertion, Edema, Lightheadedness Gastrointestinal: Denies: Abdominal Pain, Decreased Appetite, Vomiting Genitourinary: Denies: No Symptoms Musculoskeletal: Reports: No Symptoms. Denies: Neck Pain, Hand Pain, Back Pain Skin: Denies: Cyanosis, Mottled, Diaphoresis, Bruising, Rash Neurological: Denies: Confusion, Difficulty Walking, Weakness, Gait Disturbance Psychiatric: Denies: Depression, Anxiety, Agitation, Hallucinations Systems Review Comment: No overnight or acute issues. He rested well last night and feels pretty good this morning. He has no complaints. - Patient Data Vitals - Most Recent: Last Vital Signs Temp 36.6 C 10/18/18 11:35 Pulse 77 10/18/18 11:35 Resp 16 10/18/18 11:35 BP 127/87 10/18/18 11:35 Pulse Ox 95 10/18/18 11:35 Weight - Most Recent: 109.316 kg I&O - Last 24 hours: Intake & Output 10/18/18 10/18/18 10/18/18 06:59 14:59 22:59 Intake Total 350 180 400 Output Total 500 Balance -150 180 400 Lab Results - Last 24 hrs: Laboratory Results - last 24 hr 10/17/18 10/17/18 10/18/18 Range/Units 17:17 20:47 06:01 WBC (4.23-9.07) K/mm3 RBC (4.63-6.08) M/mm3 Hgb (13.7-17.5) gm/L Hct (40.1-51.0) % MCV (79.0-92.2) fl MCH (25.7-32.2) pg MCHC (32.2-35.5) g/dl RDW Std Deviation (35.1-43.9) fL Plt Count (163-337) K/mm3 MPV (9.4-12.3) fl Neut % (Auto) (34.0-67.9) % Lymph % (Auto) (21.8-53.1) % [place] % (Auto) (5.3-12.2) % Eos % (Auto) (0.8-7.0) Baso % (Auto) (0.1-1.2) % Neut # (Auto) (1.78-5.38) K/mm3 Lymph # (Auto) (1.32-3.57) K/mm3 [place] # (Auto) (0.30-0.82) K/mm3 Eos # (Auto) (0.04-0.54) K/mm3 Baso # (Auto) (0.01-0.08) K/mm3 PT (9.5-12.1) SECONDS INR Sodium (136-145) mEq/L Potassium (3.5-5.1) mEq/L Chloride (98-107) mEq/L Carbon Dioxide (21-32) mEq/L Anion Gap (5-15) BUN (7-18) mg/dL Creatinine (0.7-1.3) mg/dL Est Cr Clr Drug Dosing mL/min Estimated GFR (MDRD) (>60) mL/min BUN/Creatinine Ratio (14-18) Glucose (83-115) mg/dL POC Glucose 106 145 H 113 H (83-110) mg/dL Calcium (8.5-10.1) mg/dL Magnesium (1.8-2.4) mg/dl C-Reactive Protein (<1.0) mg/dL NT-Pro-B Natriuret Pep (0-450) pg/mL 10/18/18 10/18/18 10/18/18 Range/Units 06:09 06:09 06:09 WBC 4.09 L (4.23-9.07) K/mm3 RBC 4.10 L (4.63-6.08) M/mm3 Hgb 12.2 L (13.7-17.5) gm/L Hct 36.5 L (40.1-51.0) % MCV 89.0 (79.0-92.2) fl MCH 29.8 (25.7-32.2) pg MCHC 33.4 (32.2-35.5) g/dl RDW Std Deviation 41.2 (35.1-43.9) fL Plt Count 189 (163-337) K/mm3 MPV 9.0 L (9.4-12.3) fl Neut % (Auto) 44.8 (34.0-67.9) % Lymph % (Auto) 36.4 (21.8-53.1) % [place] % (Auto) 11.7 (5.3-12.2) % Eos % (Auto) 6.4 (0.8-7.0) Baso % (Auto) 0.2 (0.1-1.2) % Neut # (Auto) 1.83 (1.78-5.38) K/mm3 Lymph # (Auto) 1.49 (1.32-3.57) K/mm3 [place] # (Auto) 0.48 (0.30-0.82) K/mm3 Eos # (Auto) 0.26 (0.04-0.54) K/mm3 Baso # (Auto) 0.01 (0.01-0.08) K/mm3 PT (9.5-12.1) SECONDS INR Sodium 139 (136-145) mEq/L Potassium 4.2 (3.5-5.1) mEq/L Chloride 104 (98-107) mEq/L Carbon Dioxide 25 (21-32) mEq/L Anion Gap 14.2 (5-15) BUN 33 H (7-18) mg/dL Creatinine 1.2 (0.7-1.3) mg/dL Est Cr Clr Drug Dosing 54.21 mL/min Estimated GFR (MDRD) 59 (>60) mL/min BUN/Creatinine Ratio 27.5 H (14-18) Glucose 109 (83-115) mg/dL POC Glucose (83-110) mg/dL Calcium 9.0 (8.5-10.1) mg/dL Magnesium 2.0 (1.8-2.4) mg/dl C-Reactive Protein 3.5 H* (<1.0) mg/dL NT-Pro-B Natriuret Pep 260 (0-450) pg/mL 10/18/18 10/18/18 Range/Units 06:09 11:52 WBC (4.23-9.07) K/mm3 RBC (4.63-6.08) M/mm3 Hgb (13.7-17.5) gm/L Hct (40.1-51.0) % MCV (79.0-92.2) fl MCH (25.7-32.2) pg MCHC (32.2-35.5) g/dl RDW Std Deviation (35.1-43.9) fL Plt Count (163-337) K/mm3 MPV (9.4-12.3) fl Neut % (Auto) (34.0-67.9) % Lymph % (Auto) (21.8-53.1) % [place] % (Auto) (5.3-12.2) % Eos % (Auto) (0.8-7.0) Baso % (Auto) (0.1-1.2) % Neut # (Auto) (1.78-5.38) K/mm3 Lymph # (Auto) (1.32-3.57) K/mm3 [place] # (Auto) (0.30-0.82) K/mm3 Eos # (Auto) (0.04-0.54) K/mm3 Baso # (Auto) (0.01-0.08) K/mm3 PT 26.9 H (9.5-12.1) SECONDS INR 2.51 Sodium (136-145) mEq/L Potassium (3.5-5.1) mEq/L Chloride (98-107) mEq/L Carbon Dioxide (21-32) mEq/L Anion Gap (5-15) BUN (7-18) mg/dL Creatinine (0.7-1.3) mg/dL Est Cr Clr Drug Dosing mL/min Estimated GFR (MDRD) (>60) mL/min BUN/Creatinine Ratio (14-18) Glucose (83-115) mg/dL POC Glucose 149 H (83-110) mg/dL Calcium (8.5-10.1) mg/dL Magnesium (1.8-2.4) mg/dl C-Reactive Protein (<1.0) mg/dL NT-Pro-B Natriuret Pep (0-450) pg/mL DELBERT Results - Last 24 hrs: Microbiology 10/16/18 06:04 Aerobic Blood Culture - Preliminary Blood NO GROWTH AFTER 2 DAYS Anaerobic Blood Culture - Preliminary NO GROWTH AFTER 2 DAYS 10/15/18 13:25 Quick Strep Confirmation Culture - Final Throat NEGATIVE FOR BETA STREP Group A Streptococcus Rapid Screen - Final NEGATIVE STREP A SCREEN Med Orders - Current: Current Medications Acetaminophen (Tylenol) 650 mg PO Q4H PRN PRN Reason: Pain (Mild 1-3)/fever Last Admin: 10/14/18 14:53 Dose: 650 mg Albuterol (Proventil Neb Soln) 2.5 mg NEB Q2H PRN PRN Reason: Shortness Of Breath/wheezing Albuterol/Ipratropium (Duoneb 3.0-0.5 Mg/3 Ml) 3 ml NEB Q4H PRN PRN Reason: Shortness Of Breath/wheezing Artificial Tears (Refresh Liquigel 1%) 0 ml EYEBOTH Q2H PRN PRN Reason: Dry Eyes Last Admin: 10/15/18 08:18 Dose: 1 drop Benzocaine/Menthol (Cepacol Sore Throat) 1 lozenge MUCMEM Q2H PRN PRN Reason: Sore Throat Bisacodyl (Dulcolax) 5 mg PO DAILY PRN PRN Reason: Constipation Dextrose/Water (Dextrose 50% In Water) 50 ml IVPUSH ASDIRECTED PRN PRN Reason: Hypoglycemia Diltiazem HCl (Cardizem Cd) 180 mg PO DAILY [facility] Last Admin: 10/18/18 09:05 Dose: 180 mg Docusate Sodium (Colace) 100 mg PO BID PRN PRN Reason: Constipation Famotidine (Pepcid) 20 mg PO BID [facility] Last Admin: 10/18/18 09:06 Dose: 20 mg Glimepiride (Amaryl) 4 mg PO DAILY [facility] Last Admin: 10/18/18 09:06 Dose: 4 mg Cefazolin Sodium/Dextrose 2 gm (/ Premix) 50 mls @ 100 mls/hr IV Q8H [facility] Last Admin: 10/18/18 12:01 Dose: 100 mls/hr Insulin Human Lispro (Humalog) 0 unit SUBCUT QIDACANDBED [facility]; Protocol Last Admin: 10/18/18 12:01 Dose: Not Given Ketorolac Tromethamine (Toradol) 15 mg IVPUSH Q8H PRN PRN Reason: Pain/Fever Last Admin: 10/17/18 20:22 Dose: 15 mg Magnesium Hydroxide (Milk Of Magnesia) 30 ml PO Q12H PRN PRN Reason: Constipation Last Admin: 10/16/18 17:22 Dose: 30 ml Magnesium Sulfate (Pharmacy To Dose - Magnesium Replacement) 0 dose .XX ASDIRECTED PRN PRN Reason: RX TO WATCH MAG LEVELS Met[facility] ([facility]) [facility] Last Admin: 10/18/18 06:49 Dose: 1,000 mg Metoprolol Tartrate (Lopressor) 5 mg IVPUSH Q4H PRN PRN Reason: Tachycardia Metoprolol Tartrate (Lopressor) 25 mg PO Q12H [facility] Last Admin: 10/18/18 09:07 Dose: Not Given Ondansetron HCl (Zofran Odt) 4 mg PO Q4H PRN PRN Reason: nausea, able to take PO Ondansetron HCl (Zofran) 4 mg IV Q4H PRN PRN Reason: Nausea/Vomiting Polyethylene Glycol (Miralax) 17 gm PO DAILY PRN PRN Reason: Constipation Potassium Chloride (Pharmacy To Dose - Potassium Replacement) 0 dose .XX ASDIRECTED PRN PRN Reason: RX TO WATCH K LEVELS Saccharomyces Boulardii (Florastor) 250 mg PO BID [facility] Last Admin: 10/18/18 09:05 Dose: 250 mg Senna/Docusate Sodium (Senna Plus) 1 tab PO BID PRN PRN Reason: Constipation Simvastatin (Zocor) 10 mg PO BEDTIME [facility] Last Admin: 10/17/18 20:04 Dose: 10 mg Temazepam (Restoril) 7.5 mg PO BEDTIME PRN PRN Reason: Sleep Warfarin Sodium (Pharmacy To Dose - Warfarin) 0 dose .XX ASDIRECTED PRN PRN Reason: RX TO DOSE WARFARIN Warfarin Sodium (Coumadin) 4 mg PO QPM [facility] Stop: 10/18/18 18:01 Discontinued Medications Acetaminophen (Tylenol) 650 mg PO NOW ONE Stop: 10/13/18 14:53 Last Admin: 10/13/18 15:11 Dose: 650 mg Diltiazem HCl (Cardizem) 10 mg IVPUSH ONETIME ONE Stop: 10/13/18 16:24 Last Admin: 10/13/18 16:31 Dose: 10 mg Furosemide (Lasix) 40 mg IVPUSH NOW ONE Stop: 10/13/18 18:47 Last Admin: 10/13/18 19:06 Dose: 40 mg Hydromorphone HCl (Dilaudid) 0.25 mg IVPUSH Q2H PRN PRN Reason: Pain (severe 7-10) Sodium Chloride (Normal Saline) 1,000 mls @ 125 mls/hr IV ASDIRECTED [facility] Last Admin: 10/13/18 15:10 Dose: 125 mls/hr Ceftriaxone Sodium 2 gm/ (Sodium Chloride) 100 mls @ 200 mls/hr IV Q24H [facility] Last Admin: 10/14/18 17:24 Dose: 200 mls/hr Sodium Chloride (Normal Saline) 1,000 mls @ 100 mls/hr IV ASDIRECTED [facility] Furosemide 100 mg/ Sodium (Chloride) 100 mls @ 4 mls/hr IV TITRATE [facility] Stop: 10/16/18 05:00 Last Admin: 10/15/18 19:59 Dose: 4 mg/hr, 4 mls/hr Ceftriaxone Sodium 2 gm/ (Sodium Chloride) 100 mls @ 200 mls/hr IV Q24H [facility] Sodium Chloride (Normal Saline) 1,000 mls @ 100 mls/hr IV ASDIRECTED [facility] Last Admin: 10/15/18 05:53 Dose: 100 mls/hr Vancomycin HCl 1 gm/Vancomycin HCl 500 mg/ Sodium Chloride 500 mls @ 333.025 mls/hr IV Q24H [facility] Last Admin: 10/13/18 21:29 Dose: 333.025 mls/hr Vancomycin HCl 1 gm/Vancomycin HCl 500 mg/ Sodium Chloride 500 mls @ 333.025 mls/hr IV Q18H [facility] Last Admin: 10/15/18 05:52 Dose: 333.025 mls/hr Magnesium Sulfate 2 gm/ Premix 50 mls @ 25 mls/hr IV ONETIME ONE Stop: 10/14/18 14:22 Last Admin: 10/14/18 14:27 Dose: 25 mls/hr Magnesium Sulfate 2 gm/ Premix 50 mls @ 25 mls/hr IV ASDIRECTED ONE Stop: 10/15/18 15:14 Potassium Chloride 10 meq/ (Premix) 100 mls @ 100 mls/hr IV Q1H [facility] Stop: 10/15/18 15:14 Last Admin: 10/15/18 14:59 Dose: 100 mls/hr Magnesium Sulfate 2 gm/ Premix 50 mls @ 25 mls/hr IV ASDIRECTED ONE Stop: 10/15/18 17:14 Last Admin: 10/15/18 16:53 Dose: 25 mls/hr Influenza Virus Vaccine (Pharmacy To Dose - Influenza Vaccine) 1 each IM ONETIME ONE Stop: 10/13/18 22:50 Influenza Virus Vaccine (Fluzone High-Dose Syringe) 180 mcg IM .ONCE ONE Stop: 10/14/18 08:16 Last Admin: 10/18/18 15:07 Dose: 180 mcg Iopamidol (Isovue-300 (61%)) 100 ml IVPUSH ONETIME ONE Stop: 10/13/18 17:24 Last Admin: 10/13/18 17:45 Dose: 100 ml Ketorolac Tromethamine (Toradol) 30 mg IV Q6H PRN PRN Reason: Pain (moderate 4-6) Ketorolac Tromethamine (Toradol) 30 mg IVPUSH ONETIME ONE Stop: 10/13/18 21:31 Last Admin: 10/13/18 21:41 Dose: 30 mg Ketorolac Tromethamine (Toradol) 15 mg IVPUSH Q6H PRN PRN Reason: Fever Lisinopril (Prinivil) 5 mg PO DAILY [facility] Last Admin: 10/14/18 08:46 Dose: 5 mg Magnesium Oxide (Magnesium Oxide) 400 mg PO ONETIME ONE Stop: 10/13/18 20:53 Last Admin: 10/13/18 21:52 Dose: 400 mg Metformin HCl (Glucophage) 1,000 mg PO BID [facility] Last Admin: 10/14/18 08:48 Dose: Not Given Metoclopramide HCl (Reglan) 10 mg IVPUSH ONETIME ONE Stop: 10/13/18 14:53 Last Admin: 10/13/18 15:08 Dose: 10 mg Metoclopramide HCl (Reglan) 7.5 mg IVPUSH ONETIME ONE Stop: 10/13/18 19:53 Last Admin: 10/13/18 20:05 Dose: 7.5 mg Potassium Chloride (Klor-Con M20) 40 meq PO BID [facility] Stop: 10/15/18 21:01 Last Admin: 10/15/18 21:13 Dose: 40 meq Potassium Chloride (Klor-Con M20) 40 meq PO Q4H [facility] Stop: 10/16/18 23:01 Last Admin: 10/16/18 22:25 Dose: 40 meq Vancomycin HCl (Pharmacy To Dose - Vancomycin) 0 dose .XX ASDIRECTED PRN PRN Reason: RX TO DOSE VANCOMYCIN Warfarin Sodium (Coumadin) 5 mg PO ONETIME ONE Stop: 10/13/18 21:16 Last Admin: 10/13/18 21:52 Dose: 5 mg Warfarin Sodium (Coumadin) 7.5 mg PO QPM [facility] Stop: 10/14/18 21:00 Last Admin: 10/14/18 17:27 Dose: 7.5 mg Warfarin Sodium (Coumadin) 7.5 mg PO QPM [facility] Stop: 10/15/18 21:00 Last Admin: 10/15/18 17:44 Dose: 7.5 mg Warfarin Sodium (Coumadin) 7.5 mg PO QPM [facility] Stop: 10/16/18 18:01 Last Admin: 10/16/18 17:22 Dose: 7.5 mg Warfarin Sodium (Coumadin) 5 mg PO QPM [facility] Stop: 10/17/18 18:01 Last Admin: 10/17/18 18:10 Dose: 5 mg - Exam General: Reports: Alert, Oriented, Cooperative, No Acute Distress HEENT: Reports: Pupils Equal, Pupils Reactive, EOMI, Mucous Membr. Moist/[place] Neck: Reports: Supple, Trachea Midline, No JVD Lungs: Reports: Clear to Auscultation, Normal Respiratory Effort Cardiovascular: Reports: No Murmurs, Irregular Rhythm GI/Abdominal Exam: Normal Bowel Sounds, Soft, Non-Tender, No Organomegaly, No Distention, No Abnormal Bruit, No Mass (Male) Exam: Deferred Rectal (Males) Exam: Deferred Back Exam: Reports: Normal Inspection, Decreased Range of Motion Extremities: Normal Inspection, Normal Range of Motion, Non-Tender, No Pedal Edema, Normal Capillary Refill Skin: Reports: Warm, Dry, Intact Neurological: Reports: No New Focal Deficit, Normal Gait Psy/Mental Status: Reports: Alert, Normal Affect, Normal Mood
[2018-10-18] MEDS ORDERED: Warfarin 4 MG Tab PO SCH (18:00)
== END 2018-10-18 16:30 | disposition home or self-care (01) | DRG 872 ==
LOC: JD.ED 13:24 → SUPCPDRO 13:24 → JD.MS 19:56
PROVIDERS: ADMIT Internal Medicine Cardiovascular Disease; ATTEND Internal Medicine Cardiovascular Disease
DX: A41.9 Sepsis, unspecified organism (principal); L03.115 Cellulitis of right lower limb; I69.351 Hemiplegia and hemiparesis following cerebral infarction affecting right dominant side; L03.116 Cellulitis of left lower limb; I48.91 Unspecified atrial fibrillation; E11.9 Type 2 diabetes mellitus without complications; I50.9 Heart failure, unspecified; R19.7 Diarrhea, unspecified; R09.02 Hypoxemia; Z95.2 Presence of prosthetic heart valve; E83.42 Hypomagnesemia; Z86.73 Personal history of transient ischemic attack (TIA), and cerebral infarction without residual deficits; E87.6 Hypokalemia; R79.1 Abnormal coagulation profile; I11.0 Hypertensive heart disease with heart failure; R55 Syncope and collapse; R42 Dizziness and giddiness; R25.1 Tremor, unspecified; M25.551 Pain in right hip; R56.9 Unspecified convulsions; R63.0 Anorexia; R53.1 Weakness; R53.81 Other malaise; R06.02 Shortness of breath; R06.00 Dyspnea, unspecified; R60.0 Localized edema; R26.2 Difficulty in walking, not elsewhere classified; R53.83 Other fatigue; R50.9 Fever, unspecified; R35.0 Frequency of micturition; R11.2 Nausea with vomiting, unspecified; E78.5 Hyperlipidemia, unspecified; R01.1 Cardiac murmur, unspecified; E86.0 Dehydration; E66.9 Obesity, unspecified; M48.00 Spinal stenosis, site unspecified; H54.7 Unspecified visual loss; H91.90 Unspecified hearing loss, unspecified ear; Z68.32 Body mass index [BMI] 32.0-32.9, adult; Z95.3 Presence of xenogenic heart valve; Z79.01 Long term (current) use of anticoagulants; Z88.1 Allergy status to other antibiotic agents; Z79.84 Long term (current) use of oral hypoglycemic drugs; Z79.899 Other long term (current) drug therapy; Z96.641 Presence of right artificial hip joint; Z23 Encounter for immunization
CPT/HCPCS: 36415; 51702; 70450; 71045; 74177; 80053; 81001; 82553; 83605; 83735; 83880; 84484; 85007; 85027; 85610; 85652; 86140; 86738; 87040 ×2; 87077; 87186; 87804 ×2; 93005; 96361; 96365; 96375; 99285; A9270; J0696; J1940; J2765; J3490; J7030; J7040; Q9967; 80048; 80061; 82962; 83036; 84443; 85025; 87081; 87430; 87641; 90662; 93010; 93306; 96376; 97110-GP; 97116-GP; 97162-GP; 97165-GO; 97530-GP; G0008; J0690; J1815-GY; J1885; J3370; J3475; J3480